=== PATIENT | male | born 1960 | race Caucasian/White ===

== ENCOUNTER 2017-01-29 17:19 | Emergency (ER) | payer BC, MEDICAID ==
[~2017-01-29] VITALS: Ht 162.6 cm; Wt 84.8 kg
[~2017-01-29 17:19] MED LIST: CEPH-570 PO; GABA300C PO; INSU100V11; LISI-603 PO; LORA10TA7 PO; METF1000 PO; NPH,100V8 SQ; PITA2TAB PO; SITA100T PO
[2017-01-29 17:24] VITALS: BP 171/111
== END 2017-01-29 18:12 | disposition home or self-care (01) ==
LOC: ER 17:24
DX: H60.91 Unspecified otitis externa, right ear (principal); E11.9 Type 2 diabetes mellitus without complications; I10 Essential (primary) hypertension; Z79.4 Long term (current) use of insulin
CPT/HCPCS: 99283; A4606; Z7610

== ENCOUNTER 2017-09-17 15:23 | Emergency (ER) | payer BC, MEDICAID ==
[~2017-09-17] VITALS: Ht 165.1 cm; Wt 63.5 kg
[~2017-09-17 15:23] MED LIST changes: -NPH,100V8 SQ; +NPH.100V2 SQ
[2017-09-17 15:28] VITALS: BP 127/74
== END 2017-09-17 16:32 | disposition home or self-care (01) ==
LOC: ER 15:25
DX: M79.89 Other specified soft tissue disorders (principal); E11.9 Type 2 diabetes mellitus without complications; I10 Essential (primary) hypertension; Z79.4 Long term (current) use of insulin; Z86.73 Personal history of transient ischemic attack (TIA), and cerebral infarction without residual deficits
CPT/HCPCS: 99282; A4606; Z7610

== ENCOUNTER 2017-09-29 09:10 | Inpatient (IN) | payer MEDICAID ==
[~2017-09-29] VITALS: Ht 167.6 cm; Wt 77.1 kg
--- NOTE | 2017-09-29 09:20 | NUR ---
BIBRA FROM HOME DUE CHEST PAIN, 5, NON RADIATING SINCE LAST NIGHT,. PATIENT WITH HX OF CVA WITH LEFT SIDE DEFICIT. PATIENT IS AWAKE AND ALERT, APPEARS IN NO DISTRESS,RESPIRATION EVEN AND UNLABORED. AFEBRILE; IV ON LEFT HAND NOTED. NITRO/ ASA GIVEN IN FIELD. GOWNED PT AND PLACED ON TELE MONITOR.
--- NOTE | 2017-09-29 09:23 | NUR ---
EKG IN PROGRESS
[2017-09-29] MEDS ORDERED: ENALAPRILAT DIHYD. (2.5MG/ML) 1.25 MG/ML VIAL IV ONE ×2 (09:30→09:35)
[2017-09-29] MEDS ORDERED: NITROGLYCERIN PACKET 1 GM PACKET TD ONE (09:30)
[2017-09-29] MEDS ORDERED: NITROGLYCERIN PACKET 1 GM PACKET ONE (09:35)
[2017-09-29 09:37] LABS: BASOPHILS % (AUTO) 0.6 % (0.0-2.0); EOSINOPHILS # (AUTO) 0.2 /CMM (0.0-0.7); EOSINOPHILS % (AUTO) 3.7 % (0.0-6.0); HEMATOCRIT 36 % (39-51); HEMOGLOBIN 12.2 g/dL (13.5-17.5); LYMPHOCYTES # (AUTO) 0.9 /CMM (0.8-4.8); MEAN CORPUSCULAR HEMOGLOBIN 30 PG (26.0-33.0); MEAN CORPUSCULAR HGB CONC 34 g/dl (31.0-36.0); MEAN CORPUSCULAR VOLUME 89 fL (80-96); MONOCYTES # (AUTO) 0.3 /CMM (0.1-1.30); MONOCYTES % (AUTO) 4.1 % (2.0-12.0); NEUTROPHILS # (AUTO) 5.1 /CMM (1.8-8.9); NEUTROPHILS % (AUTO) 77.6 % (43.0-81.0); PLATELET COUNT (AUTO) 147 /CMM (150-450); RDW COEFFICIENT OF VARIATION 13.3 (11.5-15.0); RED BLOOD CELL COUNT(AUTO) 4.03 MIL/uL (4.5-6.0); WHITE BLOOD COUNT (AUTO) 6.5 K/uL (4.3-11.0)
[2017-09-29] MEDS ORDERED: TRIA15OI2 TP (09:50)
[2017-09-29] MEDS ORDERED: METO25TA20 PO (09:50)
[2017-09-29] MEDS ORDERED: HYDR-4077 PO (09:50)
[2017-09-29] MEDS ORDERED: DOXA2TAB2 PO (09:50)
[2017-09-29] MEDS ORDERED: CLOP75TA15 PO (09:50)
[2017-09-29] MEDS ORDERED: CALC500T52 PO (09:50)
[2017-09-29] MEDS ORDERED: LEVE500T9 PO (09:50)
[2017-09-29] MEDS ORDERED: RANI300T4 PO (09:50)
[2017-09-29] MEDS ORDERED: GABA-532 PO (09:50)
[2017-09-29] MEDS ORDERED: CARV12.52 PO (09:50)
[2017-09-29] MEDS ORDERED: DILT240C2 PO (09:50)
[2017-09-29] MEDS ORDERED: ATOR40TA PO (09:50)
[2017-09-29] MEDS ORDERED: LORA0.5T PO (09:50)
[2017-09-29] MEDS ORDERED: ERGO500040 PO (09:50)
[2017-09-29] MEDS ORDERED: LINA5TAB PO (09:50)
[2017-09-29] MEDS ORDERED: ASPI-1152 PO (09:50)
[2017-09-29] MEDS ORDERED: ALBU18HF2 IH (09:50)
[2017-09-29] MEDS ORDERED: CYAN10006 IM (09:50)
[2017-09-29] MEDS ORDERED: BACL10TA PO (09:50)
[2017-09-29] MEDS ORDERED: DOCU-141 PO (09:50)
[2017-09-29] MEDS ORDERED: LOSA100T15 PO (09:50)
[2017-09-29 09:53] LABS: ALANINE AMINOTRANSFERASE 27 U/L (12-78); ALBUMIN 3.2 g/dL (3.4-5.0); ALKALINE PHOSPHATASE 63 U/L (46-116); ASPARTATE AMINOTRANSFERASE 9 U/L (15-37); BILIRUBIN,DIRECT 0.1 mg/dL (0.0-0.2); BILIRUBIN,TOTAL 0.3 mg/dL (0.2-1.0); CARBON DIOXIDE 21 mmol/L (21-32); CHLORIDE 108 mmol/L (98-107); CREATININE 3.6 mg/dL (0.6-1.3); GLUCOSE 284 mg/dL (74-106); POTASSIUM 4.2 mmol/L (3.5-5.1); SODIUM SERUM 141 mmol/L (136-145); TOTAL PROTEIN, SERUM 6.7 g/dL (6.4-8.2); UREA NITROGEN, BLOOD 49 mg/dL (7-18)
[2017-09-29] MEDS ORDERED: AZEL137S7 BNOSTRILS (09:53)
[2017-09-29 09:55] LABS: TROPONIN I < 0.017 ng/mL (0.00-0.056)
[2017-09-29 10:00] LABS: INR 0.97 (0.87-1.13)
[2017-09-29] MEDS ORDERED: CLON0.1T PO (10:00)
[2017-09-29] MEDS ORDERED: INSU100I26 SQ (10:00)
[2017-09-29] MEDS ORDERED: INSU100V8 SQ (10:00)
--- NOTE | 2017-09-29 10:25 | NUR ---
TURNED IN MOVE SHEET
--- NOTE | 2017-09-29 10:28 | NUR ---
REPORT GIVEN TO HEATHER NAVA FOR PRABHJOT
--- NOTE | 2017-09-29 11:20 | NUR ---
Annie flores in [facility] - 09/29/17 at 1120 by GEORGE MOVE SHEET TURNED IN [id number]
--- NOTE | 2017-09-29 11:26 | NUR ---
PT TRANSPORTED TO [facility]
--- NOTE | 2017-09-29 11:35 | NUR ---
RECEIVED PATIENT FROM ER. NO SOB OR DISTRESS NOTED AT THIS TIME. PATIENT DENIES PAIN. TELE MONITOR APPLIED TO PATIENT. CURRENTLY SB 57. DR LEONARD ON FLOOR ASSESSING PATIENT. PT REPORTS HE DOES NOT WANT THE FLU VACCINE. PATIENT ORIENTED TO ROOM AND CALL LIGHT, BELONGINGS ACCOUNTED FOR. BED IN A LOW POSITION, CALL LIGHT WITHIN PATIENT REACH, FAMILY AT BEDSIDE. WILL MONITOR.
[2017-09-29] MEDS ORDERED: HYDROCODONE/APAP 5/325MG 1 EACH TABLET PO PRN (12:00)
[2017-09-29] MEDS ORDERED: Medication Not On Formulary EA (Losartan Potassium 100 MG) PO SCH (12:00)
[2017-09-29] MEDS ORDERED: Z GUARD REMEDY 2 OZ OINT TP PRN (12:00)
[2017-09-29] MEDS: TRIAMCINOLONE OINT 0.1% 15 GM TUBE TP SCH ×2 (12:00→17:00)
[2017-09-29] MEDS ORDERED: LORAZEPAM 0.5 MG TABLET PO PRN (12:00)
[2017-09-29] MEDS ORDERED: ACETAMINOPHEN 325 MG TABLET PO PRN (12:00)
[2017-09-29] MEDS ORDERED: DILTIAZEM HCL CD 240 MG PO SCH (12:00)
[2017-09-29] MEDS ORDERED: ZOLPIDEM TARTRATE 5 MG TABLET PO PRN (12:00)
[2017-09-29] MEDS: CARVEDILOL 12.5 MG TABLET PO SCH ×2 (12:00→17:21)
[2017-09-29] MEDS ORDERED: CARVEDILOL 12.5 MG TABLET PO SCH (12:00)
[2017-09-29] MEDS: CALCIUM CARBONATE (1250) 500 MG TABLET PO SCH (12:00)
[2017-09-29] MEDS: ASPIRIN EC 81 MG TABLET.DR PO SCH (12:00)
[2017-09-29] MEDS: GABAPENTIN 100 MG CAPSULE PO SCH ×2 (12:00→17:22)
[2017-09-29 12:30] VITALS: BP 169/90
[2017-09-29] MEDS ORDERED: DEXTROSE 50%-WATER 50 ML DISP.SYRIN IV PRN (13:00)
[2017-09-29] MEDS ORDERED: INSULIN GLULISINE SQ SCH (13:00)
[2017-09-29] MEDS ORDERED: hydrALAZINE HCL 50 MG TABLET PO SCH (13:00)
[2017-09-29] MEDS: PANTOPRAZOLE 40 MG VIAL IV SCH (13:17)
[2017-09-29] MEDS: DOXAZOSIN MESYLATE (1 MG) 1 MG TABLET PO SCH (13:18)
[2017-09-29] MEDS: CLOPIDOGREL BISULFATE 75 MG TABLET PO SCH (13:18)
[2017-09-29] MEDS: ATORVASTATIN 40 MG TABLET PO SCH (13:18)
[2017-09-29] MEDS: BACLOFEN (10 MG) 10 MG TABLET PO SCH ×2 (13:18→17:22)
[2017-09-29] MEDS: LINAGLIPTIN 5 MG TABLET PO SCH (13:18)
--- NOTE | 2017-09-29 13:18 | NUR ---
PT REFUSED SOME OF THE DUE MEDS AT THIS TIME HE STATES HE HAS ALREADY TAKEN THEM TODAY. UNABLE TO RETURN THEY ARE ALREADY OPEN.
[2017-09-29] MEDS: DOCUSATE SODIUM 100 MG CAPSULE PO SCH ×2 (13:19→17:22)
[2017-09-29] MEDS: AMLODIPINE BESYLATE 5 MG TABLET PO SCH (13:19)
[2017-09-29] MEDS: ONDANSETRON HCL/PF 4 MG/2 ML VIAL IVP PRN (14:21)
[2017-09-29 16:00] VITALS: BP 152/90
--- NOTE | 2017-09-29 17:10 | NUR ---
PT REFUSED INSULIN. STATES HE IS NOT FEELING WELL AND DOES NOT WANT TO EAT.
[2017-09-29] MEDS: BLOOD SUGAR DIAGNOSTIC 1 EACH STRIP IN SCH ×2 (17:22→22:06)
[2017-09-29] MEDS: INSULIN REGULAR, HUMAN 100 UNIT/ML 3 ML VIAL SQ PRN ×2 (17:22→22:48)
[2017-09-29] MEDS: FAMOTIDINE (20 MG) 20 MG TABLET PO SCH (17:22)
[2017-09-29] MEDS ORDERED: hydrALAZINE HCL 50 MG TABLET PO PRN (18:00)
[2017-09-29 18:04] LABS: APPEARANCE,URINE CLEAR (CLEAR); BILIRUBIN,URINE NEGATIVE (NEGATIVE); BLOOD, URINE TRACE-INTA Ery/uL (NEGATIVE); COLOR,URINE YELLOW (YELLOW); KETONES,URINE NEGATIVE (NEGATIVE); LEUKOCYTE ESTERASE ,URINE NEGATIVE (NEGATIVE); NITRITE, URINE NEGATIVE (NEGATIVE); PROTEIN,URINE 3+ mg/dl (NEGATIVE); UGLUCOSE 2+ mg/dL (NEGATIVE); UROBILINOGEN,URINE 0.2 EU/dL (0.2)
--- NOTE | 2017-09-29 18:43 | NUR ---
NO SIGNIFICANT CHANGES IN PATIENT CONDITION THROUGHOUT THE SHIFT. NO SOB OR DISTRESS NOTED. PATIENT DENIES PAIN AT THIS TIME. HEART RATE SR 77. BED IN A LOW POSITION, CALL LIGHT WITHIN PATIENT REACH, FAMILY IS AT THE BEDSIDE. WILL ENDORSE FOR PRABHJOT.
[2017-09-29 18:57] LABS: BACTERIA,URINE Few /HPF (None Seen); SQUAMOUS EPITHELIAL CELL,UR Few /HPF (None Seen); WBC,URINE 0-2 /HPF (0-3)
--- NOTE | 2017-09-29 19:05 | NUR ---
TELE/OPTICAL STORE MANAGER; RECEIVED PT'S REPORTS FROM THE DAY SHIFT RN. AT THIS TIME PT IN BED AWAKE, ALERT AND COHERENTLY RESPONSIVE. PT'S VISITED. PT. DENIES CHEST PAIN. ON TELEMETRY MONITORED. BED ON LOWER POSITION AND LOCKED FOR SAFETY. SIDE RAIL X4 ARE UP FOR SAFETY. PT INSTRUCTED NOT TO GET OUT OF BED AND GO TO THE BATHROOM ALONE MUST CALL FOR HELP. CALL LIGHT WITHIN REACH.
[2017-09-29 20:00] VITALS: BP 173/84
--- NOTE | 2017-09-29 20:00 | NUR ---
TELE/PRINTED CIRCUIT BOARD DESIGNER; PER PT'S SHE SAID PT WITH SLIGHT TINGLING OF LT ARM AND LT LEG. WILL MONITOR.
[2017-09-29] MEDS: CLONIDINE HCL 0.1 MG TABLET PO PRN (20:44)
[2017-09-29] MEDS: LEVETIRACETAM (250 MG) 250 MG TABLET PO SCH (20:45)
[2017-09-29] MEDS ORDERED: INSULIN GLARGINE, 100 UNIT/ML CARTRIDGE SQ SCH (22:00)
--- NOTE | 2017-09-29 22:00 | NUR ---
TELE/CLASSROOM INSTRUCTIONAL AIDE; AT THIS TIME MATHEMATICS TECHNICIAN EMPERATRIZ AT THE BEDSIDE DOING ECHOCARDIOGRAM. PT BS TAKEN AND THE RESULT 158 AND PT REFUSED COVERAGE AND ALSO HE REFUSED LANTUS INSULIN AND CHARGE NURSE MADE AWARE. WILL CONTINUE TO MONITOR. PER MATHEMATICS TECHNICIAN EF 60 %.
[2017-09-30] VITALS: BP 130/78
[2017-09-30 04:00] VITALS: BP_SYST 130; BP_SYST 147; BP_DIAS 78; BP_DIAS 93
--- NOTE | 2017-09-30 06:30 | NUR ---
TELE/CW OPERATOR; BS 152 COVERED WITH REGULAR INSULIN 2 UNITS Q. PT ENC. TO EAT FOOD.
[2017-09-30] MEDS: BLOOD SUGAR DIAGNOSTIC 1 EACH STRIP IN SCH ×3 (06:32→17:12)
[2017-09-30] MEDS: INSULIN REGULAR, HUMAN 100 UNIT/ML 3 ML VIAL SQ PRN ×2 (06:43→11:53)
--- NOTE | 2017-09-30 07:00 | NUR ---
TELE/TUMBLER MACHINE OPERATOR HELPER; PT SLEPT FAIRLY OBSERVED .PT WAS SAYING THAT HIS LT ARM AND LT LEG STILL WITH TINGLING. ALSO AT THIS TIME PT SAID HIS RT ARM SHAKING WHEN HE WAS HOLDING HIS CELL PHONE. I TOLD HIM I WILL TELL THE DAY SHIFT RN TO INFORM MD. WILL CONTINUE TO MONITOR. PT ON SR 68 WITH OCC. PVC. WILL ENDORSE TO THE DAY SHIFT NURSE FOR PRABHJOT.
[2017-09-30 07:38] LABS: BASOPHILS % (AUTO) 0.7 % (0.0-2.0); EOSINOPHILS # (AUTO) 0.3 /CMM (0.0-0.7); EOSINOPHILS % (AUTO) 4.7 % (0.0-6.0); HEMATOCRIT 36 % (39-51); HEMOGLOBIN 12.4 g/dL (13.5-17.5); LYMPHOCYTES # (AUTO) 1.1 /CMM (0.8-4.8); LYMPHOCYTES % (AUTO) 15.7 % (20.0-44.0); MEAN CORPUSCULAR HEMOGLOBIN 31 PG (26.0-33.0); MEAN CORPUSCULAR HGB CONC 34 g/dl (31.0-36.0); MEAN CORPUSCULAR VOLUME 90 fL (80-96); MONOCYTES # (AUTO) 0.3 /CMM (0.1-1.30); MONOCYTES % (AUTO) 4.6 % (2.0-12.0); NEUTROPHILS # (AUTO) 5.2 /CMM (1.8-8.9); NEUTROPHILS % (AUTO) 74.3 % (43.0-81.0); PLATELET COUNT (AUTO) 152 /CMM (150-450); RDW COEFFICIENT OF VARIATION 13.3 (11.5-15.0); RED BLOOD CELL COUNT(AUTO) 4.05 MIL/uL (4.5-6.0)
[2017-09-30 07:51] LABS: ALBUMIN 3.2 g/dL (3.4-5.0); BILIRUBIN,TOTAL 0.4 mg/dL (0.2-1.0); CALCIUM, SERUM 9.4 mg/dL (8.5-10.1); CREATININE 3.4 mg/dL (0.6-1.3); MAGNESIUM 2.2 mg/dL (1.8-2.4); PHOSPHORUS 3.9 mg/dL (2.5-4.9); POTASSIUM 4.6 mmol/L (3.5-5.1); TOTAL PROTEIN, SERUM 6.6 g/dL (6.4-8.2)
[2017-09-30 08:00] VITALS: BP 160/105
--- NOTE | 2017-09-30 08:02 | NUR ---
BENEFITS CONSULTING ANALYST OPENING NOTE PATIENT IS ALERT AND ORIENTED x4. NO PAIN AT THIS TIME. PATIENT DOES STATE TINGLING IN LEFT ARM. NO SOB OR DISTRESS NOTED. CALL LIGHT WITHIN REACH. SAFETY MEASURES IMPLEMENTED. ABLE TO COMMUNICATE NEEDS. IV INTACT WITH IV FLUIDS RUNNING AT THIS TIME TOLERATING WELL. ON ROOM AIR AT 96%. BLOOD SUGAR TO BE MONITORED THROUGHOUT SHIFT. WILL CONTINUE TO MONITOR THROUGHOUT SHIFT
[2017-09-30] MEDS: ASPIRIN EC 81 MG TABLET.DR PO SCH (08:29)
[2017-09-30] MEDS: AMLODIPINE BESYLATE 5 MG TABLET PO SCH (08:30)
[2017-09-30] MEDS: ATORVASTATIN 40 MG TABLET PO SCH (08:30)
[2017-09-30] MEDS: LINAGLIPTIN 5 MG TABLET PO SCH (08:30)
[2017-09-30] MEDS: DOXAZOSIN MESYLATE (1 MG) 1 MG TABLET PO SCH (08:30)
[2017-09-30] MEDS: CALCIUM CARBONATE (1250) 500 MG TABLET PO SCH (08:30)
[2017-09-30] MEDS: DOCUSATE SODIUM 100 MG CAPSULE PO SCH ×2 (08:30→17:00)
[2017-09-30] MEDS: CLOPIDOGREL BISULFATE 75 MG TABLET PO SCH (08:30)
[2017-09-30] MEDS: LEVETIRACETAM (250 MG) 250 MG TABLET PO SCH (08:30)
[2017-09-30] MEDS: PANTOPRAZOLE 40 MG VIAL IV SCH (08:31)
[2017-09-30] MEDS: TRIAMCINOLONE OINT 0.1% 15 GM TUBE TP SCH ×2 (08:31→17:00)
[2017-09-30] MEDS: CARVEDILOL 12.5 MG TABLET PO SCH ×2 (08:31→17:10)
[2017-09-30] MEDS: BACLOFEN (10 MG) 10 MG TABLET PO SCH ×2 (08:31→17:00)
[2017-09-30] MEDS: ONDANSETRON HCL/PF 4 MG/2 ML VIAL IVP PRN ×2 (09:09→15:39)
[2017-09-30 16:00] VITALS: BP 198/105
[2017-09-30 17:10] VITALS: BP 176/100
[2017-09-30] MEDS: CLONIDINE HCL 0.1 MG TABLET PO PRN (17:10)
[2017-09-30] MEDS: GABAPENTIN 100 MG CAPSULE PO SCH (17:12)
[2017-09-30] MEDS: FAMOTIDINE (20 MG) 20 MG TABLET PO SCH (17:12)
--- NOTE | 2017-09-30 18:16 | NUR ---
TRAFFIC ENGINEERING DIRECTOR NOTE PATIENT IS ALERT AND ORIENTED x4. NO PAIN AT THIS TIME. NO SOB OR DISTRESS NOTED. CALL LIGHT WITHIN REACH AT ALL TIMES. SAFETY MEASURES IMPLEMENTED. ABLE TO COMMUNICATE NEEDS. ALL DUE MEDICATIONS GIVEN ORDERED. ALL NURSING CARE NEEDS ATTENDED TO NEEDED. IV REMOVED, SKIN INTACT. ALL BELONGINGS ACCOUNTED FOR AND WITH PATIENT AT DISCHARGE. ALL DISCHARGE INSTRUCTIONS GIVEN TO PATIENT AND AT BEDSIDE,ALL DISCHARGE INSTRUCTIONS TAUGHT BACK BY PATIENT AND . PRESCRIPTION GIVEN TO PATIENT. LEFT VIA PRIVATE CAR WITH TO HOME
[2017-10-05] MEDS ORDERED: ERGOCALCIFEROL (VITAMIN D 2) 50,000 UNIT CAPSULE PO SCH (12:00)
== END 2017-09-30 18:14 | disposition home health service (06) | DRG 198 ==
LOC: ER 09:12 → TELE 11:29
PROVIDERS: ADMIT Internal Medicine; ATTEND Internal Medicine
DX: I25.110 Atherosclerotic heart disease of native coronary artery with unstable angina pectoris (principal); G93.40 Encephalopathy, unspecified; E11.22 Type 2 diabetes mellitus with diabetic chronic kidney disease; E11.40 Type 2 diabetes mellitus with diabetic neuropathy, unspecified; I69.354 Hemiplegia and hemiparesis following cerebral infarction affecting left non-dominant side; I12.9 Hypertensive chronic kidney disease with stage 1 through stage 4 chronic kidney disease, or unspecified chronic kidney disease; E78.5 Hyperlipidemia, unspecified; N18.9 Chronic kidney disease, unspecified; D63.8 Anemia in other chronic diseases classified elsewhere; J44.9 Chronic obstructive pulmonary disease, unspecified; K21.9 Gastro-esophageal reflux disease without esophagitis; Z87.891 Personal history of nicotine dependence; Z95.1 Presence of aortocoronary bypass graft; Z79.82 Long term (current) use of aspirin; Z79.4 Long term (current) use of insulin
CPT/HCPCS: 36415; 70450-TC; 71045-TC; 80048-TC; 80053-TC; 80061-TC; 80076-TC; 81000-TC; 82962-TC; 83605-TC; 83735-TC; 84100-TC; 84484-TC; 85025-TC; 85730-TC; 87081-TC; 87086-TC; 93307-TC; 93880-TC; A4606; C9113; J1815; J2405; J3490; Z7610

== ENCOUNTER 2018-12-17 19:28 | Inpatient (IN) | payer MEDICARE, OTHER ==
[~2018-12-17] VITALS: Ht 160 cm; Wt 73.5 kg
[~2018-12-17 19:28] MED LIST changes: +ALBU18HF2 IH; +ASPI-1152 PO; +ATOR40TA PO; +AZEL137S7 BNOSTRILS; +BACL10TA PO; +CALC500T52 PO; +CARV12.52 PO; -CEPH-570 PO; +CLON0.1T PO; +CLOP75TA15 PO; +CYAN10006 IM; +DILT240C2 PO; +DOCU-141 PO; +DOXA2TAB2 PO; +ERGO500040 PO; +GABA-532 PO; -GABA300C PO; +HYDR-4077 PO; +INSU100I26 SQ; -INSU100V11; +INSU100V8 SQ; +LEVE500T9 PO; +LINA5TAB PO; -LISI-603 PO; +LORA0.5T PO; -LORA10TA7 PO; +LOSA100T31 PO; -METF1000 PO; +METO25TA20 PO; -NPH.100V2 SQ; -PITA2TAB PO; +RANI300T4 PO; -SITA100T PO; +TRIA15OI2 TP
--- NOTE | 2018-12-17 19:53 | NUR ---
PRESENTD TO THE ER W/ C/O ELENITA. +N/V AT HOME AND HIGH BP. VS OBTAINED . PLACED ON A MONITOR . WILL CONT TO MONITOR ,
[2018-12-17 20:02] LABS: BASOPHILS # (AUTO) 0.1 /CMM (0.0-0.2); BASOPHILS % (AUTO) 0.6 % (0.0-2.0); EOSINOPHILS % (AUTO) 4.3 % (0.0-6.0); HEMATOCRIT 36 % (39-51); HEMOGLOBIN 11.9 g/dL (13.5-17.5); LYMPHOCYTES # (AUTO) 1.3 /CMM (0.8-4.8); LYMPHOCYTES % (AUTO) 14.4 % (20.0-44.0); MEAN CORPUSCULAR HGB CONC 33 g/dl (31.0-36.0); MEAN CORPUSCULAR VOLUME 98 fL (80-96); MONOCYTES # (AUTO) 0.7 /CMM (0.1-1.30); MONOCYTES % (AUTO) 8.1 % (2.0-12.0); NEUTROPHILS # (AUTO) 6.4 /CMM (1.8-8.9); NEUTROPHILS % (AUTO) 72.6 % (43.0-81.0); PLATELET COUNT (AUTO) 126 /CMM (150-450); RED BLOOD CELL COUNT(AUTO) 3.67 MIL/uL (4.5-6.0); WHITE BLOOD COUNT (AUTO) 8.8 K/uL (4.3-11.0)
--- NOTE | 2018-12-17 20:02 | NUR ---
20g iv started on rac. blood drawn and sent to the lab. ECG done. pt was encoutraged to give some urine sample.
[2018-12-17 20:19] LABS: ALANINE AMINOTRANSFERASE 16 U/L (12-78); ALBUMIN 3.2 g/dL (3.4-5.0); ALKALINE PHOSPHATASE 56 U/L (46-116); ASPARTATE AMINOTRANSFERASE 12 U/L (15-37); BILIRUBIN,DIRECT 0.1 mg/dL (0.0-0.2); BILIRUBIN,TOTAL 0.4 mg/dL (0.2-1.0); CALCIUM, SERUM 8.8 mg/dL (8.5-10.1); CARBON DIOXIDE 18 mmol/L (21-32); CHLORIDE 103 mmol/L (98-107); GLUCOSE 104 mg/dL (74-106); LIPASE 225 U/L (73-393); SODIUM SERUM 141 mmol/L (136-145); TOTAL PROTEIN, SERUM 7.2 g/dL (6.4-8.2)
[2018-12-17 20:24] LABS: POTASSIUM 6.2 mmol/L (3.5-5.1)
[2018-12-17 20:25] LABS: UREA NITROGEN, BLOOD 116 mg/dL (7-18)
[2018-12-17] MEDS ORDERED: SODIUM POLYSTYRENE SULF. PWD 15 GM UDC PO ONE (20:30)
[2018-12-17] MEDS ORDERED: hydrALAZINE HCL IV 20 MG VIAL IV ONE (20:30)
[2018-12-17] MEDS ORDERED: hydrALAZINE HCL IV 20 MG VIAL ONE (20:32)
[2018-12-17] MEDS ORDERED: SODIUM POLYSTYRENE SULFONATE 15 G/60 ML BOTTLE ONE ×2 (20:32→20:39)
--- NOTE | 2018-12-17 22:06 | NUR ---
111-1 TELE DX HTN, HYPERKALEMIA, RENAL FAILURE ACCEPTING DR WHITE
--- NOTE | 2018-12-17 22:27 | NUR ---
REPORT GIVEN TO ANTHONY [facility]
--- NOTE | 2018-12-17 22:55 | NUR ---
PT WAS TRANSFERRED TO [place] [id number] UNDER ACLS PROTOCOL IN STABLE CONDITION.
--- NOTE | 2018-12-17 23:05 | NUR ---
MALT SPECIFICATIONS CONTROL ASSISTANT NOTES RECEIVED PT FROM ER NURSE. AMBULATORY WITH CANE, ON ROOM AIR SATURATING WELL. ON TELE MONITOR SR. IV ACCESS PATENT AND INTACT. HD CATH RIGHT CHEST WALL. HEAD OF BED ELEVATED. SIDE RAILS UP. CALL LIGHT WITHIN REACH. BED ALARM ON. WILL CONTINUE TO MONITOR PT CLOSELY.
--- NOTE | 2018-12-17 23:32 | NUR ---
CONCRETE BLOCK LAYER NOTES PAGED EPIC FOR BLOOD PRESSURE 190/110. NO NEW ORDERS. AWAITING ADMISSION ORDERS.
[2018-12-17] MEDS ORDERED: SERT25TA5 PO (23:37)
[2018-12-17] MEDS ORDERED: QUET25TA PO (23:37)
--- NOTE | 2018-12-17 23:43 | NUR ---
OILING MACHINE OPERATOR NOTES MD AT BEDSIDE. AWAITING MD ORDER
[2018-12-18] VITALS (9 sets, daily range): BP systolic 122–191; BP diastolic 73–110
[2018-12-18] MEDS ORDERED: LORAZEPAM 0.5 MG TABLET PO PRN
[2018-12-18] MEDS ORDERED: ALBUTEROL SULFATE 8 GM HFA.AER.AD IH PRN
[2018-12-18] MEDS ORDERED: DEXTROSE 50%-WATER 50 ML DISP.SYRIN IV PRN
[2018-12-18] MEDS ORDERED: MAGNESIUM HYDROXIDE 30 ML UDC PO PRN
[2018-12-18] MEDS ORDERED: ZOLPIDEM TARTRATE 5 MG TABLET PO PRN
[2018-12-18] MEDS ORDERED: MAG HYDROX/AL HYDROX/SIMETH 30 ML UDC PO PRN
[2018-12-18] MEDS ORDERED: CLONIDINE HCL 0.1 MG TABLET PO PRN
[2018-12-18] MEDS: CARVEDILOL 12.5 MG TABLET PO SCH ×3 (00:45→17:00)
[2018-12-18] MEDS: hydrALAZINE HCL 50 MG TABLET PO SCH ×4 (00:46→17:00)
[2018-12-18] MEDS: LEVETIRACETAM (250 MG) 250 MG TABLET PO SCH ×3 (00:48→21:15)
--- NOTE | 2018-12-18 01:08 | NUR ---
TRAILER SECTIONS ASSEMBLER NOTES PER PT HE WANTS TO HAVE ACCUCHECK AND INSULIN IN AM BEFORE MEALS. EXPLAINED RISK AND BENEFITS. PT STILL REFUSED. CN INFORMED.
[2018-12-18] MEDS: DILTIAZEM HCL CD 240 MG PO SCH ×2 (01:23→08:26)
[2018-12-18] MEDS: LOSARTAN POTASSIUM 50 MG TABLET PO SCH ×2 (01:23→09:00)
[2018-12-18] MEDS: BACLOFEN (10 MG) 10 MG TABLET PO SCH ×3 (01:26→17:12)
[2018-12-18] MEDS: GABAPENTIN 100 MG CAPSULE PO SCH ×2 (01:26→17:12)
[2018-12-18 06:29] LABS: BASOPHILS # (AUTO) 0.1 /CMM (0.0-0.2); BASOPHILS % (AUTO) 0.9 % (0.0-2.0); EOSINOPHILS % (AUTO) 4.3 % (0.0-6.0); HEMATOCRIT 32 % (39-51); LYMPHOCYTES % (AUTO) 13.7 % (20.0-44.0); MEAN CORPUSCULAR HGB CONC 34 g/dl (31.0-36.0); MEAN CORPUSCULAR VOLUME 98 fL (80-96); MONOCYTES # (AUTO) 0.5 /CMM (0.1-1.30); MONOCYTES % (AUTO) 6.9 % (2.0-12.0); NEUTROPHILS # (AUTO) 5.7 /CMM (1.8-8.9); NEUTROPHILS % (AUTO) 74.2 % (43.0-81.0); PLATELET COUNT (AUTO) 119 /CMM (150-450); WHITE BLOOD COUNT (AUTO) 7.7 K/uL (4.3-11.0)
[2018-12-18 06:59] LABS: THYROID STIMULATING HORMONE 1.978 uIU/mL (0.358-3.74)
[2018-12-18 07:02] LABS: CALCIUM, SERUM 8.4 mg/dL (8.5-10.1); MAGNESIUM 3.2 mg/dL (1.8-2.4); POTASSIUM 5.8 mmol/L (3.5-5.1)
--- NOTE | 2018-12-18 07:11 | NUR ---
APPLIQUE SEWER NOTES NO ACUTE CHANGES NOTED DURING THE SHIFT. NO RESPIRATORY DISTRESS NOTED. BED ALARM ON. WILL ENDORSE TO THE AM NURSE FOR CONTINUITY OF CARE.
[2018-12-18] MEDS: BLOOD SUGAR DIAGNOSTIC 1 EACH STRIP IN SCH ×4 (07:31→21:16)
[2018-12-18] MEDS ORDERED: ALBUTEROL FS 2.5 MG/0.5 ML VIAL.NEB NEB PRN (07:35)
[2018-12-18 07:40] LABS: CREATININE 11.8 mg/dL (0.6-1.3); PHOSPHORUS 10.9 mg/dL (2.5-4.9)
--- NOTE | 2018-12-18 07:42 | NUR ---
RN NOTE: PATIENT RECEIVED ALERT AWAKE ORIENTED X 4. ON ROOM AIR, NO BREATHING DISTRESS NOTED. DENIES CHEST PAIN & DISCOMFORT. DENIES ABDOMEN DISCOMFORT. SAFETY MEASURES OBSERVED. ENCOURAGE TO USE CALL LIGHT FOR ASSISTANCE. PLAN FOR HD TODAY. CONTINUE WITH PLAN OF CARE.
[2018-12-18] MEDS: SERTRALINE HCL 25 MG TABLET PO SCH ×2 (08:24→17:13)
[2018-12-18] MEDS: ATORVASTATIN 40 MG TABLET PO SCH (08:24)
[2018-12-18] MEDS: CALCIUM CARBONATE (1250) 500 MG TABLET PO SCH (08:24)
[2018-12-18] MEDS: DOCUSATE SODIUM 100 MG CAPSULE PO SCH ×2 (08:24→17:00)
[2018-12-18] MEDS: LINAGLIPTIN 5 MG TABLET PO SCH (08:25)
[2018-12-18] MEDS: CLOPIDOGREL BISULFATE 75 MG TABLET PO SCH (08:25)
[2018-12-18] MEDS: ASPIRIN EC 81 MG TABLET.DR PO SCH (08:25)
[2018-12-18] MEDS: TRIAMCINOLONE OINT 0.1% 15 GM TUBE TP SCH ×2 (09:00→17:00)
[2018-12-18] MEDS ORDERED: METOPROLOL TARTRATE 25 MG TABLET PO SCH (09:00)
[2018-12-18] MEDS: AZELASTINE NASAL SPRAY 30 ML BOTTLE NS SCH ×2 (09:19→17:12)
--- NOTE | 2018-12-18 12:31 | NUR ---
RN NOTE: PT & REFUSED, DOES NOT TAKE BP MED ON DIALYSIS DAY, TODAY PLAN FOR HD. WILL CONTINUE TO MONITOR.
[2018-12-18] MEDS: INSULIN REGULAR, HUMAN 100 UNIT/ML 3 ML VIAL SQ PRN ×2 (12:49→17:14)
[2018-12-18] MEDS: QUETIAPINE FUMARATE 25 MG TABLET PO SCH (17:12)
--- NOTE | 2018-12-18 18:30 | NUR ---
RN NOTE: PATIENT REMAINS ALERT AWAKE ORIENTED X 4. ON ROOM AIR, NO BREATHING DISTRESS NOTED. DENIES CHEST PAIN/DISCOMFORT. NO SIGNIFICANT CHANGES NOTED DURING SHIFT. ASSISTANT BUSINESS MANAGER AT BEDSIDE DOING DIALYSIS. SAFETY MEASURES OBSERVED. ENCOURAGE TO USE CALL LIGHT FOR ASSISTANCE. CONTINUE WITH PLAN OF CARE.
--- NOTE | 2018-12-18 19:17 | NUR ---
SUPERVISOR POWDERED METAL NOTES RECEIVED PT ON BED. A/O X 4. SPOUSE AT BEDSIDE. ON TELE MONITOR SR 86. ON ROOM AIR NO RESPIRATORY DISTRESS NOTED. ON GOING HD. HD ACCESS RCW. IV ACCESS RAC G20 PATENT AND INTACT. HEAD OF BED ELEVATED. SIDE RAILS UP. CALL LIGHT WITHIN REACH. BED ALARM ON. WILL CONTINUE TO MONITOR PT CLOSELY.
--- NOTE | 2018-12-18 21:00 | NUR ---
MARKETING ASSISTANT RETAIL DIVISION NOTES HD DONE. BP 147/90. WILL GIVEN SCHEDULED BP MEDS.
[2018-12-18] MEDS: DOXAZOSIN MESYLATE (1 MG) 1 MG TABLET PO SCH (21:16)
[2018-12-18] MEDS: INSULIN GLARGINE, 100 UNIT/ML CARTRIDGE SQ SCH ×2 (21:17)
--- NOTE | 2018-12-18 21:25 | NUR ---
OPEN SOURCE DEVELOPER NOTES LONG ACTING INSULIN NOT GIVEN. PT NOT EATING WELL. BS OF 85MG/DL
[2018-12-18] MEDS: HYDROCODONE/APAP 5/325MG 1 EACH TABLET PO PRN (22:41)
--- NOTE | 2018-12-18 23:08 | NUR ---
RN NOTE RECEIVED PATIENT IN THE BED, ALERT/ORIENTED X 3, AWAKE, NO PAIN OR DISCOMFORT, BED ALARM IS ON FOR SAFETY, ALL SAFETY MEASURES TAKEN
--- NOTE | 2018-12-18 23:08 | NUR ---
ANATOMY AND PHYSIOLOGY INSTRUCTOR NOTES REPORT GIVEN TO KAYLEE ROMERO.
[2018-12-19] VITALS (46 sets, daily range): BP systolic 79–201; BP diastolic 54–112
--- NOTE | 2018-12-19 05:50 | NUR ---
RN NOTE EPISODE OF VOMITING NOTED, PATIENT WAS NOT ABLE TO HOLD CUP OF WATER, RIGHT SIDE WEAKNESS NOTED (RIGHT LOWER EXTREMITY AND RIGHT UPPER EXTREMITY), NEURO CHECK PERFORMED, BP 217/110 NOTED, CODE STROKE ACTIVATED, NURSING SOLDER CREAM MAKER IS BY BEDSIDE, CODE STROKE PROTOCOL INITIATED, PATIENT WAS SENT TO CT SCAN WITHOUT WITH ACLS PROTOCOL, CT HEAD WITHOUT CONTRAST WAS DONE, RESULT WAS CALLED TO DR LINDSAY, PER MD CALL NEUROLOGIST, SPOKE TO DOCTOR ESTHER NIETO, PER NEUROLOGIST PATIENT IS NOT CANDIDATE FOR TPA DUE TO LOW PLATELETS, ORDER WAS GIVEN TO SENT PATIENT FOR CT SCAN WITH CONTRAST AND SEND PATIENT TO ICU AND PRIMARY PHYSICIAN WILL FOLLOW UP WITH RESULT OF CT WITH CONTRAST, FAMILY WILL BE NOTIFIED, REPORT WAS GIVEN TO ARIE ICU NURSE
[2018-12-19] MEDS ORDERED: IOHEXOL-350 100 ML VIAL IV ONE ×2 (06:00→06:58)
[2018-12-19 06:23] LABS: BASOPHILS # (AUTO) 0.1 /CMM (0.0-0.2); BASOPHILS % (AUTO) 3.1 % (0.0-2.0); EOSINOPHILS % (AUTO) 8.8 % (0.0-6.0); HEMATOCRIT 37 % (39-51); HEMOGLOBIN 12.4 g/dL (13.5-17.5); LYMPHOCYTES # (AUTO) 0.8 /CMM (0.8-4.8); LYMPHOCYTES % (AUTO) 19.7 % (20.0-44.0); MEAN CORPUSCULAR HGB CONC 34 g/dl (31.0-36.0); MEAN CORPUSCULAR VOLUME 97 fL (80-96); MONOCYTES # (AUTO) 0.5 /CMM (0.1-1.30); MONOCYTES % (AUTO) 11.9 % (2.0-12.0); NEUTROPHILS # (AUTO) 2.3 /CMM (1.8-8.9); NEUTROPHILS % (AUTO) 56.5 % (43.0-81.0); PLATELET COUNT (AUTO) 93 /CMM (150-450); RED BLOOD CELL COUNT(AUTO) 3.78 MIL/uL (4.5-6.0)
[2018-12-19 06:32] LABS: CALCIUM, SERUM 8.9 mg/dL (8.5-10.1); POTASSIUM 3.7 mmol/L (3.5-5.1)
[2018-12-19 06:35] LABS: CREATININE 8.2 mg/dL (0.6-1.3)
--- NOTE | 2018-12-19 06:40 | NUR ---
RN NOTES SPOKE TO DR KELLEY AFTER SPEAKING TO NEUROLOGIST DR REDDING. IN AGREEMENT TO TRANSFER PATIENT TO ICU AFTER STAT CTA WITH CONTRAST OF THE HEAD AND NECK.
[2018-12-19 06:44] LABS: EOSINOPHILS % (MANUAL) 7 % (0-4); LYMPHOCYTES % (MANUAL) 15 % (16-48); MONOCYTES % (MANUAL) 10 % (0-11.0); NEUTROPHILS % (MANUAL) 68 (42-76)
[2018-12-19] MEDS: ONDANSETRON HCL/PF 4 MG/2 ML VIAL IVP PRN (07:18)
--- NOTE | 2018-12-19 07:18 | NUR ---
SAND DRIER ADMITTING NOTES: Rec'd pt via bed accompanied by ASH RN/ ICU CN. Pt s/p Code Stroke. Pt is A/O x 1, denies any pain/discomfort at this time. 100% on NC at 2lpm. SR on telemonitor. Has 2 IV line access, R AC G20 & L AC G20, both SL, flushing well, no s/sx of infection/infiltration noted. R CW HD Cath w/ C/D/I dressing, per report pt is scheduled for HD today. Weakness noted more on L > R. Pt oriented to room. Safety precaution in place w/ bed in lowest & locked pos. Call light placed w/in reach. Will cont to monitor & attend pt needs.
--- NOTE | 2018-12-19 07:40 | NUR ---
RN NOTE SPOKE TO SON DEBBIE, NOTIFIED SON REGARDING CHANGE OF CONDITION AND TRANSFER TO ICU, PER SON DEBBIE NOTIFY HIM SOON RESULTS OF CT SCAN READY, NOTIFIED NURSE ARIE TO CALL SON SOON RESULTS READY
--- NOTE | 2018-12-19 08:00 | NUR ---
MANAGER EMPLOYEE RELATIONS. AROUND 0550 ASH CHARGE CALLED FOR ASSESS THE PT. PER PRIMARY RN PT HAD HISTORY LT SIDE OLD STROKE. TODAY PRIMARY RN NOTED RT SIDE WEAKNESS , NEURO CHECK DONE RT DIDE UPPER AND LOWER EXTREMITY DRIFT NOTED. ACTIVATED CODE STROKE, CODE STROKE PROTOCOL INITIATED. PT TRANSFER TO ICU ROOM 254.
[2018-12-19] MEDS: BLOOD SUGAR DIAGNOSTIC 1 EACH STRIP IN SCH ×4 (08:07→22:19)
[2018-12-19] MEDS: CARVEDILOL 12.5 MG TABLET PO SCH ×2 (09:00→17:00)
[2018-12-19] MEDS: TRIAMCINOLONE OINT 0.1% 15 GM TUBE TP SCH ×2 (09:00→17:00)
[2018-12-19] MEDS: AZELASTINE NASAL SPRAY 30 ML BOTTLE NS SCH ×2 (09:00→17:42)
[2018-12-19] MEDS: hydrALAZINE HCL 50 MG TABLET PO SCH ×3 (09:00→17:00)
[2018-12-19] MEDS: CLOPIDOGREL BISULFATE 75 MG TABLET PO SCH (09:08)
[2018-12-19] MEDS: DOCUSATE SODIUM 100 MG CAPSULE PO SCH ×2 (09:08→17:00)
[2018-12-19] MEDS: LEVETIRACETAM (250 MG) 250 MG TABLET PO SCH ×2 (09:08→21:00)
[2018-12-19] MEDS: INSULIN REGULAR, HUMAN 100 UNIT/ML 3 ML VIAL SQ PRN ×3 (09:08→17:34)
[2018-12-19] MEDS: CALCIUM CARBONATE (1250) 500 MG TABLET PO SCH (09:09)
[2018-12-19] MEDS: ASPIRIN EC 81 MG TABLET.DR PO SCH (09:09)
[2018-12-19] MEDS: ATORVASTATIN 40 MG TABLET PO SCH (09:09)
[2018-12-19] MEDS: SERTRALINE HCL 25 MG TABLET PO SCH ×2 (09:09→17:00)
[2018-12-19] MEDS: BACLOFEN (10 MG) 10 MG TABLET PO SCH ×2 (09:09→17:00)
[2018-12-19] MEDS: LINAGLIPTIN 5 MG TABLET PO SCH (09:09)
--- NOTE | 2018-12-19 10:28 | NUR ---
Pt had another episode of nausea & vomited bilious output. Zofran given 2 hours ago. Referred to Dr. Fletcher w/ orders to give Decadron 10mg IVP x 1 dose & start on Reglan 10mg IVP TID PRN.
[2018-12-19] MEDS ORDERED: DEXAMETHASONE SOD PHOSPHATE 10 MG/ML VIAL IV ONE (10:30)
[2018-12-19] MEDS: HYDROCODONE/APAP 5/325MG 1 EACH TABLET PO PRN (10:40)
[2018-12-19] MEDS: METOCLOPRAMIDE HCL 10 MG/2 ML VIAL IV PRN ×2 (11:29→21:02)
--- NOTE | 2018-12-19 11:30 | NUR ---
HD ended w/ 2L output c/o Carl ELIZONDO RN.
--- NOTE | 2018-12-19 11:30 | NUR ---
Pt seen & examined by Dr. Fletcher w/ orders to do STAT CXR d/t episode of desaturation 82% while on NC at 2lpm.
[2018-12-19] MEDS: LOSARTAN POTASSIUM 50 MG TABLET PO SCH (11:52)
[2018-12-19] MEDS: DILTIAZEM HCL CD 240 MG PO SCH (11:52)
--- NOTE | 2018-12-19 13:00 | NUR ---
Pt noted to be restless, confused, trying to get out of bed & pull out his HD cath - placed on R wrist restraint for pt's safety. Dr. Rodriguez made aware.
--- NOTE | 2018-12-19 17:15 | NUR ---
Pt noted to be drowsy, not appropriately responding to questions asked, mumbles. at bedside to translate. Per , he seems to be the same since this AM. Explained to the that RN was able to talk to him this AM, he was confused at that time but able to follow simple commands. Dr. Rodriguez made aware w/ orders to do STAT ABG. RT made aware. Dr. Longoria to see the pt. Son at bedside, updated.
[2018-12-19] MEDS: QUETIAPINE FUMARATE 25 MG TABLET PO SCH (17:42)
[2018-12-19] MEDS: GABAPENTIN 100 MG CAPSULE PO SCH (17:42)
[2018-12-19 18:11] LABS: ABG BASE EXCESS -8.3 mmol/L; ABG OXYGEN SATURATION 92.8 % (92.0-98.5); ABG PCO2 29.5 mmHg (35.0-45.0); ABG PH 7.352 (7.350-7.450); ABG PO2 75.7 mmHg (75.0-100.0); AaDO2 146.8 mmHg; COHb 0.9 % (0.5-1.5); MetHb 0.5 % (0.0-1.5); O2Hb 91.5 % (94.0-97.0); SITE, ABG Left Brachial; VENT MODE, BG 4L NASAL CANNULA
--- NOTE | 2018-12-19 18:58 | NUR ---
RADIOLOGY MANAGER CLOSING NOTES: Pt not in any distress. No SOB while on NC at 4lpm. ST on telemonitor. IV line access kept patent & intact w/ no s/sx of infection/infiltration noted. Dr. Rodriguez made aware re: ABG results w/ NNO. Dr. Longoria to see pt tonight. R wrist restraints kept on. Safety precaution observed at all times. Family updated. Will endorse to PM RN for PRABHJOT.
--- NOTE | 2018-12-19 19:45 | NUR ---
RN NOTES Received bedside report from am rn . Pt is A/O x 1, denies any pain/discomfort at this time. on NC at 2 l/pmwith spo2 of 97%. STon telemonitor. Has 2 IV line access, R AC G20 & L AC G20, both SL, flushing well, no s/sx of infection/infiltration noted. R CW HD Cath w/ C/D/I dressing, per report pt HAD HD today. Weakness noted more on L > R. Pt oriented to room. Safety precaution in place w/ bed in lowest & locked pos. Call light placed w/in reach. Will cont to monitor & attend pt needs.
--- NOTE | 2018-12-19 20:49 | NUR ---
RN NOTES MD IS AT THE BEDSIDE FOR NEURO CONSULT AND MRI BRAIN WITHOUT CONTRAST IN THE MORNING IS IN PLACE. PATIENT IS LETHARGIC , CAN NOT FOLLOW COMMENDS AND COULDN'T SWALLOW PO MEDICATIONS. WILL CALL THE MD FOR NEW ORDERS. WILL CONTINUE TO MONITOR PATIENT CLOSELY.
--- NOTE | 2018-12-19 21:48 | NUR ---
RN NOTES PATIENT CAN NOT FOLLOW COMMENDS AND COULDN'T SWALLOW HIS PO LEVETIRACETAM. PO MEDICATIONS WILL BE HELD FOR NOW. WILL CONTINUE TO MONITOR PATIENT.
[2018-12-19] MEDS: DOXAZOSIN MESYLATE (1 MG) 1 MG TABLET PO SCH (22:00)
[2018-12-19] MEDS: LORAZEPAM INJ 2 MG/ML VIAL IV PRN (22:13)
[2018-12-19] MEDS ORDERED: INSULIN GLARGINE, 100 UNIT/ML CARTRIDGE SQ ONE (22:53)
[2018-12-19] MEDS: INSULIN GLARGINE, 100 UNIT/ML CARTRIDGE SQ SCH (23:14)
[2018-12-20] VITALS (64 sets, daily range): BP systolic 82–247; BP diastolic 52–140
[2018-12-20] MEDS: hydrALAZINE HCL IV 20 MG VIAL IV PRN ×2 (00:57→08:36)
[2018-12-20] MEDS: MORPHINE SULFATE INJ 2 MG/ML DISP.SYRIN IV PRN (01:08)
[2018-12-20] MEDS: BLOOD SUGAR DIAGNOSTIC 1 EACH STRIP IN SCH ×4 (08:28→22:49)
[2018-12-20] MEDS: INSULIN REGULAR, HUMAN 100 UNIT/ML 3 ML VIAL SQ PRN ×4 (08:30→23:09)
[2018-12-20] MEDS: POLYVINYL ALCOHOL 15 ML BOTTLE EACHEYE PRN (08:31)
[2018-12-20] MEDS: AZELASTINE NASAL SPRAY 30 ML BOTTLE NS SCH ×2 (08:31→17:15)
--- NOTE | 2018-12-20 08:54 | NUR ---
Pt noted to be restless, unable to respond to questions asked. BP still is persistently high despite of the IV Hydralazine PRN given. Dr. Rodriguez made aware, agreed to insert NGT. Pt has scheduled BP medications. 0900H Prior to inserting NGT, pt vomited bilious output, moderate amount. Pt noted holding it in his mouth despite of telling him to spit it out. NGT was able to insert on L nare. O2 saturation noted dropped to 85% while on NC at 4lpm. Pt deep suctioned brownish output c/o RT & placed on NRB/15lpm, sats went up to 90% though still restless. STAT CXR & ABG ordered. ABG results relayed to Dr. Rodriguez c/o RT w/ orders to intubate pt. 0945H Dr. Rodriguez intubated pt. STAT CXR ordered post intubation. ordered to give 1 dose of Hydralazine 10 mg IVP d/t high BP. Start pt on Diprivan Drip. was able to talk to the family over the phone regarding pt's current status. Per Dr. Rodriguez may insert PICC line. Consent was secured & placed in the chart. updated regarding the coffee ground output from NGT w/ orders made & carried out. Per to connect to LIS & keep pt NPO for now. Once pt is stable may proceed w/ CT scan of the head w/o contrast. Again Dr. Rodriguez updated the family at bedside regarding pt's condition. Questions/ concerns answered by .
[2018-12-20] MEDS: SERTRALINE HCL 25 MG TABLET PO SCH ×2 (09:00→17:00)
[2018-12-20] MEDS: LOSARTAN POTASSIUM 50 MG TABLET PO SCH (09:00)
[2018-12-20] MEDS: CARVEDILOL 12.5 MG TABLET PO SCH ×2 (09:00→17:00)
[2018-12-20] MEDS: DILTIAZEM HCL CD 240 MG PO SCH (09:00)
[2018-12-20] MEDS: ASPIRIN EC 81 MG TABLET.DR PO SCH (09:00)
[2018-12-20] MEDS: TRIAMCINOLONE OINT 0.1% 15 GM TUBE TP SCH ×2 (09:00→17:00)
[2018-12-20] MEDS: CALCIUM CARBONATE (1250) 500 MG TABLET PO SCH (09:00)
[2018-12-20] MEDS: LEVETIRACETAM (250 MG) 250 MG TABLET PO SCH ×2 (09:00→21:00)
[2018-12-20] MEDS: LINAGLIPTIN 5 MG TABLET PO SCH (09:00)
[2018-12-20] MEDS: hydrALAZINE HCL 50 MG TABLET PO SCH ×3 (09:00→17:00)
[2018-12-20] MEDS: DOCUSATE SODIUM 100 MG CAPSULE PO SCH ×2 (09:00→17:00)
[2018-12-20] MEDS: BACLOFEN (10 MG) 10 MG TABLET PO SCH ×2 (09:00→17:00)
[2018-12-20] MEDS: CLOPIDOGREL BISULFATE 75 MG TABLET PO SCH (09:00)
[2018-12-20] MEDS: ATORVASTATIN 40 MG TABLET PO SCH (09:00)
[2018-12-20] MEDS ORDERED: hydrALAZINE HCL IV 20 MG VIAL IV ONE (10:00)
[2018-12-20] MEDS ORDERED: PROPOFOL 10MG/ML 50ML 50 ML IV PRN ×2 (10:00)
[2018-12-20] MEDS ORDERED: VANCOMYCIN 1 GM in IV NS 0.9% 250 ML IV ONE (10:00)
[2018-12-20] MEDS ORDERED: FEE PK DOSING 1 MIN EA MC ONE (10:19)
[2018-12-20] MEDS ORDERED: PROPOFOL 100 ML IV PRN ×3 (10:30→16:53)
[2018-12-20] MEDS: PIPERACILLIN /TAZOBACTAM 2.25 G in IV D5W 50 ML IV SCH ×3 (11:15→21:30)
[2018-12-20] MEDS: NEXIUM 40 MG VIAL IV SCH ×2 (11:25→21:10)
[2018-12-20] MEDS: LORAZEPAM INJ 2 MG/ML VIAL IV PRN ×3 (12:49→21:09)
[2018-12-20 13:02] LABS: ABG BASE EXCESS -5.1 mmol/L; ABG OXYGEN SATURATION 43.9 % (92.0-98.5); ABG PCO2 43.3 mmHg (35.0-45.0); ABG PH 7.305 (7.350-7.450); ABG PO2 28.1 mmHg (75.0-100.0); AaDO2 496.8 mmHg; COHb 0.8 % (0.5-1.5); MetHb 0.8 % (0.0-1.5); O2Hb 43.2 % (94.0-97.0); SITE, ABG Right Radial; VENT MODE, BG !00% NRB
[2018-12-20 13:03] LABS: ABG BASE EXCESS -0.3 mmol/L; ABG OXYGEN SATURATION 98.5 % (92.0-98.5); ABG PCO2 28.9 mmHg (35.0-45.0); ABG PO2 197.3 mmHg (75.0-100.0); AaDO2 486.8 mmHg; COHb 0.3 % (0.5-1.5); MetHb 0.5 % (0.0-1.5); O2Hb 97.7 % (94.0-97.0); SITE, ABG Right Radial; VENT MODE, BG AC 14 500 +8 100%
[2018-12-20 14:17] LABS: BASOPHILS % (AUTO) 0.5 % (0.0-2.0); EOSINOPHILS % (AUTO) 0.3 % (0.0-6.0); HEMATOCRIT 31 % (39-51); HEMOGLOBIN 10.6 g/dL (13.5-17.5); LYMPHOCYTES # (AUTO) 0.4 /CMM (0.8-4.8); MEAN CORPUSCULAR HGB CONC 34 g/dl (31.0-36.0); MEAN CORPUSCULAR VOLUME 97 fL (80-96); MONOCYTES # (AUTO) 0.4 /CMM (0.1-1.30); MONOCYTES % (AUTO) 6.6 % (2.0-12.0); NEUTROPHILS # (AUTO) 4.8 /CMM (1.8-8.9); NEUTROPHILS % (AUTO) 85.6 % (43.0-81.0); PLATELET COUNT (AUTO) 104 /CMM (150-450); RED BLOOD CELL COUNT(AUTO) 3.24 MIL/uL (4.5-6.0); WHITE BLOOD COUNT (AUTO) 5.6 K/uL (4.3-11.0)
[2018-12-20 14:26] LABS: CALCIUM, SERUM 8.6 mg/dL (8.5-10.1); POTASSIUM 3.6 mmol/L (3.5-5.1)
[2018-12-20 14:28] LABS: CREATININE 9.3 mg/dL (0.6-1.3)
[2018-12-20] MEDS: PROPOFOL 100 ML IV PRN ×2 (17:06→22:30)
[2018-12-20] MEDS: GABAPENTIN 100 MG CAPSULE PO SCH (17:06)
[2018-12-20] MEDS: QUETIAPINE FUMARATE 25 MG TABLET PO SCH (17:07)
--- NOTE | 2018-12-20 17:34 | NUR ---
Pt still restless while on Diprivan Drip at [address] Auguste changed the frequency/dose of Ativan to 1mg q1H PRN.
--- NOTE | 2018-12-20 18:15 | NUR ---
HD ended w/ 700L output c/o Lillie ROMERO. Pt tolerated the procedure well. Vancomycin trough level checked post HD.
--- NOTE | 2018-12-20 19:00 | NUR ---
CARDROOM WORKER CLOSING NOTES: Pt not in any distress, sedated. No SOB while on MV via ETT w/ FiO2 50%, sating at 94%. ST on telemonitor. IV line access kept patent & intact w/ no s/sx of infection/infiltration noted - WHITLEY PICC line w/ Diprivan x 50 mcg/kg/min infusing well. NGT kept patent & intact connected to LIS, still w/ coffee ground output. updated about pt condition, made him aware that MRI was not done d/t intubation - per MD CT scan of the head w/o contrast is okay. B soft wrist restraints kept on. Safety precaution observed at all times. Family updated about pt condition. Endorsed to PM RN for PRABHJOT. Endorsed to PM RN that per Dr. Auguste, pt may go to radiology to do CT scan of the head w/o contrast.
--- NOTE | 2018-12-20 19:45 | NUR ---
AUTO WRECKER REMOVED IV FROM LEFT AC IT IS LEAKING AND BLEEDING. CONTINUE TO MONITOR.
--- NOTE | 2018-12-20 20:00 | NUR ---
BLANKET CUTTING MACHINE OPERATORELECTRICAL WORKER AT BEDSIDE; UPDATED ON PLAN OF CARE.
[2018-12-20] MEDS: VANCOMYCIN 500 MG in IV D5W 100 ML IV PRN (20:16)
--- NOTE | 2018-12-20 21:10 | NUR ---
PEARL STRINGER PER PT ; PT NOTED TO BE TWITCHING; ATIVAN 1 MG IVP GIVEN. CONTINUE TO MONITOR. ALSO NOTED PT HAS NOT BEEN RECEIVING KEPPRA PT IS NPO. CALLED MD TO VERIFY IF KEPPRA NEEDS TO BE GIVEN IV. CONTINUE TO MONITOR.
[2018-12-20] MEDS: DOXAZOSIN MESYLATE (1 MG) 1 MG TABLET PO SCH (21:29)
--- NOTE | 2018-12-20 21:45 | NUR ---
DIAGNOSTIC SALES SPECIALIST PER MD START KEPPRA IV PT REMAINS NPO.
[2018-12-20] MEDS: INSULIN GLARGINE, 100 UNIT/ML CARTRIDGE SQ SCH (22:00)
[2018-12-20] MEDS ORDERED: LEVETIRACETAM (500MG) 500 MG/5 ML VIAL IV ONE (22:16)
[2018-12-20] MEDS: LEVETIRACETAM (500MG) 250 MG in IV NS 0.9% 100 ML IV SCH (22:30)
[2018-12-21] VITALS (40 sets, daily range): BP systolic 93–190; BP diastolic 51–102
--- NOTE | 2018-12-21 02:00 | NUR ---
EMBEDDED CASE MANAGER PT TAKEN FOR HEAD CT; TOLERATED WELL. CALLED [facility] FOR RESULTS.
[2018-12-21] MEDS: PROPOFOL 100 ML IV PRN ×5 (02:38→20:35)
[2018-12-21 04:59] LABS: BASOPHILS # (AUTO) 0.1 /CMM (0.0-0.2); BASOPHILS % (AUTO) 0.8 % (0.0-2.0); EOSINOPHILS % (AUTO) 5.5 % (0.0-6.0); HEMATOCRIT 31 % (39-51); HEMOGLOBIN 10.5 g/dL (13.5-17.5); LYMPHOCYTES # (AUTO) 0.9 /CMM (0.8-4.8); LYMPHOCYTES % (AUTO) 10.9 % (20.0-44.0); MEAN CORPUSCULAR HGB CONC 34 g/dl (31.0-36.0); MEAN CORPUSCULAR VOLUME 98 fL (80-96); MONOCYTES # (AUTO) 0.3 /CMM (0.1-1.30); MONOCYTES % (AUTO) 4.4 % (2.0-12.0); NEUTROPHILS # (AUTO) 6.2 /CMM (1.8-8.9); NEUTROPHILS % (AUTO) 78.4 % (43.0-81.0); PLATELET COUNT (AUTO) 86 /CMM (150-450); RED BLOOD CELL COUNT(AUTO) 3.17 MIL/uL (4.5-6.0); WHITE BLOOD COUNT (AUTO) 7.9 K/uL (4.3-11.0)
[2018-12-21 05:20] LABS: CREATININE 6.1 mg/dL (0.6-1.3); POTASSIUM 3.3 mmol/L (3.5-5.1)
[2018-12-21] MEDS: PIPERACILLIN /TAZOBACTAM 2.25 G in IV D5W 50 ML IV SCH ×3 (05:36→20:01)
--- NOTE | 2018-12-21 06:00 | NUR ---
DIRECTOR OF MATH PER LAB RESULTS BLOOD GLUCOSE 56; CHECKED 65. NO ORDERS AT THIS TIME. CONTINUE TO MONITOR.
[2018-12-21 06:34] LABS: BAND % (MANUAL) 8 % (0.0-5.0); LYMPHOCYTES % (MANUAL) 9 % (16-48); MONOCYTES % (MANUAL) 2 % (0-11.0); NEUTROPHILS % (MANUAL) 76 (42-76)
[2018-12-21 06:35] LABS: EOSINOPHILS % (MANUAL) 5 % (0-4)
--- NOTE | 2018-12-21 07:48 | NUR ---
RT NOTE PT REC'D ORALLY INTUBATED VIA ETT 7.5 SECURED @ 24 CM AT THE LIP, ON MECH VENT WITH NOTED SETTINGS. PT IS SEDATED. SX DONE PRN, NO RESP DISTRESS OR SOB NOTED. ALARMS ARE SET AND AUDIBLE. VENT PLUGGED INTO RED OUTLET. AMBU BAG BEDSIDE. WILL CONTINUE TO MONITOR.
[2018-12-21] MEDS: BLOOD SUGAR DIAGNOSTIC 1 EACH STRIP IN SCH ×4 (08:12→23:32)
[2018-12-21 08:16] LABS: ABG OXYGEN SATURATION 93.8 % (92.0-98.5); ABG PCO2 37.4 mmHg (35.0-45.0); ABG PH 7.443 (7.350-7.450); ABG PO2 76.4 mmHg (75.0-100.0); COHb 0.2 % (0.5-1.5); MetHb 0.4 % (0.0-1.5); O2Hb 93.2 % (94.0-97.0); SITE, ABG Left Brachial
--- NOTE | 2018-12-21 08:20 | NUR ---
RN NOTES RECEIVED PT SEDATED ORALLY INTUBATED WIT ETT 7.5 AND 24 CM AT LIPLINE. RESPONSIVE TO PAIN WITH VENT SETTING AC 14 TV 450 FIO2 50% AND PEEP 5 TOLERATED WELL SATURATION 98%. WARMTH TO TOUCH , AFEBRILE. NOTED THAT PT SHAKING A LI TELE MONITOR REVEALS SR WITH PVC'S . IV SITE ON WHITLEY PICC LINE WITH DIPRIVAN @ 50 MCG/KG/MIN AND RAC G 20 TKO INTACT AND PATENT. RCW REMAINED WITH CLEANED DRESSING. PT HAS NGT ON LEFT NARES DRAINING WITH COFFEE GROUND OUTPUT. PT IS UNABLE TO FOLLOW COMMAND AT THIS TIME DUE TO SEDATION. TURNED AND REPOSITIONED PT COMFORTABLE KEPT PT CLEAN AND DRY. WILL CONTINUE TO MONITOR.
[2018-12-21] MEDS: TRIAMCINOLONE OINT 0.1% 15 GM TUBE TP SCH ×2 (09:00→18:57)
[2018-12-21] MEDS: DILTIAZEM HCL CD 240 MG PO SCH (09:00)
[2018-12-21] MEDS: hydrALAZINE HCL 50 MG TABLET PO SCH ×3 (09:00→17:00)
[2018-12-21] MEDS: ASPIRIN EC 81 MG TABLET.DR PO SCH (09:00)
[2018-12-21] MEDS ORDERED: ERGOCALCIFEROL (VITAMIN D 2) 50,000 UNIT CAPSULE PO SCH (09:00)
[2018-12-21] MEDS: CLOPIDOGREL BISULFATE 75 MG TABLET PO SCH (09:00)
[2018-12-21] MEDS: ATORVASTATIN 40 MG TABLET PO SCH (09:00)
[2018-12-21] MEDS: LINAGLIPTIN 5 MG TABLET PO SCH (09:00)
[2018-12-21] MEDS: CARVEDILOL 12.5 MG TABLET PO SCH ×2 (09:00→17:00)
[2018-12-21] MEDS: SERTRALINE HCL 25 MG TABLET PO SCH ×2 (09:00→17:00)
[2018-12-21] MEDS: BACLOFEN (10 MG) 10 MG TABLET PO SCH ×2 (09:00→17:00)
[2018-12-21] MEDS: DOCUSATE SODIUM 100 MG CAPSULE PO SCH ×2 (09:00→17:00)
[2018-12-21] MEDS: LOSARTAN POTASSIUM 50 MG TABLET PO SCH (09:00)
[2018-12-21] MEDS: hydrALAZINE HCL IV 20 MG VIAL IV PRN ×2 (09:07→19:46)
[2018-12-21] MEDS: MORPHINE SULFATE INJ 2 MG/ML DISP.SYRIN IV PRN ×2 (09:08→22:58)
[2018-12-21] MEDS: CALCIUM CARBONATE (1250) 500 MG TABLET PO SCH (09:20)
[2018-12-21] MEDS: NEXIUM 40 MG VIAL IV SCH ×2 (09:23→20:01)
[2018-12-21] MEDS: LEVETIRACETAM (500MG) 250 MG in IV NS 0.9% 100 ML IV SCH ×2 (09:24→20:44)
[2018-12-21] MEDS: AZELASTINE NASAL SPRAY 30 ML BOTTLE NS SCH ×2 (09:24→17:18)
--- NOTE | 2018-12-21 12:30 | NUR ---
RN NOTES S/E BY DR. SILVERIO WITH NEW ORDER ACKNOWLEDGED.
[2018-12-21] MEDS ORDERED: DEXTROSE 50%-WATER 50 ML DISP.SYRIN IV PRN (16:00)
--- NOTE | 2018-12-21 16:30 | NUR ---
APPLICATION DBA NOTE DIALYSIS NURSE AT BEDSIDE. DR. SILVERIO ORDERED DIALYSIS TODAY INSTEAD OF TOMORROW MORNING.
[2018-12-21] MEDS: GABAPENTIN 100 MG CAPSULE PO SCH (17:58)
[2018-12-21] MEDS: QUETIAPINE FUMARATE 25 MG TABLET PO SCH (17:58)
--- NOTE | 2018-12-21 19:00 | NUR ---
CLINICAL DIETITIAN NOTE DIALYSIS ENDED. OUTPUT 700ML. PT REMAINS STABLE. FAMILY AT BEDSIDE.
[2018-12-21] MEDS: DOXAZOSIN MESYLATE (1 MG) 1 MG TABLET PO SCH (21:24)
[2018-12-21] MEDS: VANCOMYCIN 500 MG in IV D5W 100 ML IV PRN (21:41)
[2018-12-21] MEDS: INSULIN GLARGINE, 100 UNIT/ML CARTRIDGE SQ SCH (22:00)
[2018-12-21] MEDS: POLYVINYL ALCOHOL 15 ML BOTTLE EACHEYE PRN (22:04)
[2018-12-22] VITALS (77 sets, daily range): BP systolic 58–193; BP diastolic 50–101
[2018-12-22] MEDS: LORAZEPAM INJ 2 MG/ML VIAL IV PRN (00:11)
--- NOTE | 2018-12-22 00:37 | NUR ---
MEDICAL LAB TECHNOLOGIST NOTE NOTED PT RESTLESS AND SLIGHTLY AGITATED ON DIP @ 50MCG/KG/MIN. SPOKE WITH SIZING MACHINE AND DRIER OPERATOR DR. PRUITT WITH ORDERS TO INCREASE MAX DOSE OF DIPRIVAN TO 100 MCG/KG/MIN. ORDERS NOTED AND CARRIED. PT REMAINS INTUBATED. WILL MONITOR.
[2018-12-22] MEDS: PROPOFOL 100 ML IV PRN ×3 (02:29→12:04)
[2018-12-22] MEDS: hydrALAZINE HCL IV 20 MG VIAL IV PRN (02:35)
[2018-12-22 04:39] LABS: BASOPHILS # (AUTO) 0.1 /CMM (0.0-0.2); BASOPHILS % (AUTO) 0.6 % (0.0-2.0); EOSINOPHILS % (AUTO) 7.2 % (0.0-6.0); HEMATOCRIT 30 % (39-51); HEMOGLOBIN 9.9 g/dL (13.5-17.5); LYMPHOCYTES # (AUTO) 0.7 /CMM (0.8-4.8); LYMPHOCYTES % (AUTO) 7.9 % (20.0-44.0); MEAN CORPUSCULAR HGB CONC 33 g/dl (31.0-36.0); MEAN CORPUSCULAR VOLUME 100 fL (80-96); MONOCYTES # (AUTO) 0.4 /CMM (0.1-1.30); MONOCYTES % (AUTO) 4.8 % (2.0-12.0); NEUTROPHILS # (AUTO) 7.3 /CMM (1.8-8.9); NEUTROPHILS % (AUTO) 79.5 % (43.0-81.0); PLATELET COUNT (AUTO) 88 /CMM (150-450); WHITE BLOOD COUNT (AUTO) 9.2 K/uL (4.3-11.0)
[2018-12-22 04:53] LABS: CALCIUM, SERUM 8.8 mg/dL (8.5-10.1); CREATININE 5.6 mg/dL (0.6-1.3); MAGNESIUM 2.2 mg/dL (1.8-2.4); PHOSPHORUS 6.5 mg/dL (2.5-4.9); POTASSIUM 3.3 mmol/L (3.5-5.1)
[2018-12-22] MEDS: PIPERACILLIN /TAZOBACTAM 2.25 G in IV D5W 50 ML IV SCH ×3 (05:36→20:01)
[2018-12-22] MEDS: BLOOD SUGAR DIAGNOSTIC 1 EACH STRIP IN SCH ×3 (05:42→17:05)
[2018-12-22 06:11] LABS: EOSINOPHILS % (MANUAL) 8 % (0-4); LYMPHOCYTES % (MANUAL) 4 % (16-48); MONOCYTES % (MANUAL) 3 % (0-11.0); NEUTROPHILS % (MANUAL) 85 (42-76)
[2018-12-22 08:04] LABS: ABG BASE EXCESS -3.2 mmol/L; ABG OXYGEN SATURATION 96.5 % (92.0-98.5); ABG PCO2 35.5 mmHg (35.0-45.0); ABG PH 7.394 (7.350-7.450); ABG PO2 104.4 mmHg (75.0-100.0); AaDO2 212.2 mmHg; COHb 0.3 % (0.5-1.5); MetHb 0.8 % (0.0-1.5); O2Hb 95.4 % (94.0-97.0); SITE, ABG Left Brachial; VENT MODE, BG AC 450.14.+5.50%
--- NOTE | 2018-12-22 08:22 | NUR ---
INITIAL SLIP BOX CHANGER NOTE RCVD PT INTUBATED 7.12/16, SEDATED ON DIPRIVAN, BILATERAL SOFT WRIST RESTRAINTS IN PLACE, CIRCULATION CHECKS DONE, ST ON MONITOR, TOLERATING ORDERED VENT SETTINGS, NG-TUBE TO LOW INTERMITTENT SUCTION WITH GREEN GASTRIC CONTENTS OBSERVED. WILL CONTINUE TO MONITOR PT FOR SAFETY AND COMFORT. BED IN LOW AND LOCKED POSITION, HEAD OF BED ELEVATED.
[2018-12-22] MEDS: LEVETIRACETAM (500MG) 250 MG in IV NS 0.9% 100 ML IV SCH ×2 (09:54→20:01)
[2018-12-22] MEDS: NEXIUM 40 MG VIAL IV SCH ×2 (09:55→20:01)
[2018-12-22] MEDS: AZELASTINE NASAL SPRAY 30 ML BOTTLE NS SCH ×2 (09:56→17:06)
[2018-12-22] MEDS: ASPIRIN 81 MG TAB.CHEW PO SCH (09:56)
[2018-12-22] MEDS: CALCIUM CARBONATE (1250) 500 MG TABLET PO SCH (09:56)
[2018-12-22] MEDS: DOCUSATE SODIUM LIQ 100 MG/10 ML UDC NG SCH ×2 (09:56→17:08)
[2018-12-22] MEDS: SERTRALINE HCL 25 MG TABLET PO SCH ×2 (09:56→17:08)
[2018-12-22] MEDS: POLYVINYL ALCOHOL 15 ML BOTTLE EACHEYE PRN (09:56)
[2018-12-22] MEDS: ATORVASTATIN 40 MG TABLET PO SCH (09:56)
[2018-12-22] MEDS: CLOPIDOGREL BISULFATE 75 MG TABLET PO SCH (09:56)
[2018-12-22] MEDS: BACLOFEN (10 MG) 10 MG TABLET PO SCH ×2 (09:56→17:08)
[2018-12-22] MEDS: LINAGLIPTIN 5 MG TABLET PO SCH (09:56)
[2018-12-22] MEDS: LOSARTAN POTASSIUM 50 MG TABLET PO SCH (09:57)
[2018-12-22] MEDS: TRIAMCINOLONE OINT 0.1% 15 GM TUBE TP SCH ×2 (09:57→17:06)
[2018-12-22] MEDS: CARVEDILOL 12.5 MG TABLET PO SCH ×2 (09:58→17:09)
[2018-12-22] MEDS: hydrALAZINE HCL 50 MG TABLET PO SCH ×3 (09:58→17:00)
--- NOTE | 2018-12-22 11:11 | NUR ---
SEDATION VACATION NOTE PT'S DIPRIVAN TITRATED DOWN FOR SEDATION VACATION, BP ELEVATED INTO THE 190'S. PT WAS PLACED BACK ON SEDATION. WILL CONTINUE TO MONITOR.
[2018-12-22] MEDS: DILTIAZEM HCL 30 MG TABLET PO SCH ×3 (12:00→18:26)
[2018-12-22] MEDS: INSULIN REGULAR, HUMAN 100 UNIT/ML 3 ML VIAL SQ PRN ×2 (12:37→17:11)
[2018-12-22] MEDS: GABAPENTIN 100 MG CAPSULE PO SCH (17:08)
--- NOTE | 2018-12-22 17:58 | NUR ---
INFORMATION AND DATA ARCHITECT ANALYST NOTE DIPRIVAN TITRATED OFF, PT ABLE TO OPEN EYES BUT REMAINED DROWSY, UNABLE TO FOLLOW COMMANDS, PT'S FAMILY AT BEDSIDE.
[2018-12-22] MEDS: QUETIAPINE FUMARATE 25 MG TABLET PO SCH (18:00)
--- NOTE | 2018-12-22 19:24 | NUR ---
PROBE OPERATOR NOTE PT WAS RE-STARTED ON DIPRIVAN LOW DOSE, ST ON MONITOR, TOLERATING ORDERED VENT SETTINGS WELL, LEFT NG-TUBE PLACEMENT VERIFIED BY AUSCULTATION/ASPIRATION OF GASTRIC CONTENTS, WHITLEY PICC C/D/I/PATENT, NO S/O INFILTRATION/PHLEBITIS OBSERVED UPON FLUSHING. PT'S CARE ENDORSED TO SCHEDULER CONVEYOR RN FOR CONTINUITY OF CARE, BED IN LOW AND LOCKED POSITION, CALL LIGHT WITHIN REACH, HEAD OF BED ELEVATED. PT'S FAMILY UPDATED REGARDING PLAN OF CARE FOR WEANING TRIAL IN AM.
--- NOTE | 2018-12-22 20:00 | NUR ---
AUTOMATIC SPOOLER OPERATOR - NOTES - RECEIVED PT INTUBATED 7.12/16, SEDATED ON DIPRIVAN 10, BILATERAL SOFT WRIST RESTRAINTS IN PLACE, CIRCULATION CHECKS DONE, ST/SR ON MONITOR, TOLERATING ORDERED VENT SETTINGS, NG-TUBE TO LOW INTERMITTENT SUCTION WITH GREEN GASTRIC CONTENTS OBSERVED. WILL CONTINUE TO MONITOR PT FOR SAFETY AND COMFORT. BED IN LOW AND LOCKED POSITION, HEAD OF BED ELEVATED.
[2018-12-22] MEDS: INSULIN GLARGINE, 100 UNIT/ML CARTRIDGE SQ SCH (22:00)
[2018-12-22] MEDS: DOXAZOSIN MESYLATE (1 MG) 1 MG TABLET PO SCH (22:25)
[2018-12-23] VITALS (50 sets, daily range): BP systolic 73–122; BP diastolic 26–73
[2018-12-23] MEDS: PROPOFOL 100 ML IV PRN (00:07)
[2018-12-23] MEDS: BLOOD SUGAR DIAGNOSTIC 1 EACH STRIP IN SCH ×4 (00:07→17:27)
[2018-12-23] MEDS: INSULIN REGULAR, HUMAN 100 UNIT/ML 3 ML VIAL SQ PRN ×2 (00:12→18:09)
[2018-12-23] MEDS: DILTIAZEM HCL 30 MG TABLET PO SCH ×2 (00:12→05:21)
--- NOTE | 2018-12-23 03:00 | NUR ---
REPORT GIVEN TO HIRAM ROMERO FOR PRABHJOT
[2018-12-23] MEDS: PIPERACILLIN /TAZOBACTAM 2.25 G in IV D5W 50 ML IV SCH ×3 (05:12→21:05)
[2018-12-23 05:20] LABS: BASOPHILS % (AUTO) 0.4 % (0.0-2.0); EOSINOPHILS % (AUTO) 6.4 % (0.0-6.0); HEMATOCRIT 26 % (39-51); HEMOGLOBIN 8.8 g/dL (13.5-17.5); LYMPHOCYTES # (AUTO) 0.7 /CMM (0.8-4.8); LYMPHOCYTES % (AUTO) 7.6 % (20.0-44.0); MEAN CORPUSCULAR HGB CONC 34 g/dl (31.0-36.0); MEAN CORPUSCULAR VOLUME 98 fL (80-96); MONOCYTES # (AUTO) 0.5 /CMM (0.1-1.30); MONOCYTES % (AUTO) 5.4 % (2.0-12.0); NEUTROPHILS # (AUTO) 7.6 /CMM (1.8-8.9); NEUTROPHILS % (AUTO) 80.2 % (43.0-81.0); PLATELET COUNT (AUTO) 102 /CMM (150-450); RED BLOOD CELL COUNT(AUTO) 2.66 MIL/uL (4.5-6.0); WHITE BLOOD COUNT (AUTO) 9.5 K/uL (4.3-11.0)
[2018-12-23 05:31] LABS: MAGNESIUM 2.3 mg/dL (1.8-2.4); POTASSIUM 3.5 mmol/L (3.5-5.1)
[2018-12-23 05:56] LABS: CREATININE 8.1 mg/dL (0.6-1.3); PHOSPHORUS 8.1 mg/dL (2.5-4.9)
--- NOTE | 2018-12-23 07:15 | NUR ---
PRACTICE CONSULTANT OPENING NOTE RECEIVED REPORT FROM PM NURSE .SHE CONTINUING CARE FOR PATIENT TILL 999. PT INTUBATED 7.12/16, SEDATED ON DIPRIVAN 10, BILATERAL SOFT WRIST RESTRAINTS IN PLACE, CIRCULATION CHECKS DONE, ST/SR ON MONITOR, TOLERATING ORDERED VENT SETTINGS, NG-TUBE TO LOW INTERMITTENT SUCTION WITH GREEN GASTRIC CONTENTS OBSERVED. WILL CONTINUE TO MONITOR PT FOR SAFETY AND COMFORT. BED IN LOW AND LOCKED POSITION, HEAD OF BED ELEVATED.
--- NOTE | 2018-12-23 07:27 | NUR ---
RN NOTES PT REMAINED IN THE SAME CONDITION ORALLY INTUBATED VENT SETTING TOLERATED WELL NO CHANGED FROM THE SETTING. NO SIGNIFICANT PRABHJOT THROUGHOUT THE SHIFT. ALL DUE MEDICINE TOLERATED WELL. NO URINE OUTPUT AND NO BOWEL. IV SITE REMAINED INTACT AND PATENT WITH DIPRIVAN TITRATED ORDERED. AFEBRILE. VSS. KEPT PT CLEAN AND COMFORTABLE IN BED. TURNED AND REPOSITIONED Q2H AND PRN. BED LOCKED AND SECURED. PLACED IN LOWEST POSSIBLE POSITION. WILL CONTINUE TO MONITOR.
--- NOTE | 2018-12-23 07:40 | NUR ---
BEADING MACHINE OPERATOR NOTE CHANGED TO SIMV MODE.MONITORING PATIENT.
[2018-12-23 08:50] LABS: ABG OXYGEN SATURATION 94.1 % (92.0-98.5); ABG PCO2 32.9 mmHg (35.0-45.0); ABG PO2 84.9 mmHg (75.0-100.0); AaDO2 162.5 mmHg; COHb 0.2 % (0.5-1.5); MetHb 0.4 % (0.0-1.5); O2Hb 93.5 % (94.0-97.0); PEEP,BG 5 cm H2O; SITE, ABG Left Brachial; VENT MODE, BG SIMV 4 / PS 15; VT, ABG 450 mL
[2018-12-23] MEDS: ASPIRIN 81 MG TAB.CHEW PO SCH (08:51)
[2018-12-23] MEDS: LEVETIRACETAM (500MG) 250 MG in IV NS 0.9% 100 ML IV SCH ×2 (08:51→21:05)
[2018-12-23] MEDS: CLOPIDOGREL BISULFATE 75 MG TABLET PO SCH (08:51)
[2018-12-23] MEDS: SERTRALINE HCL 25 MG TABLET PO SCH (08:51)
[2018-12-23] MEDS: ATORVASTATIN 40 MG TABLET PO SCH (08:51)
[2018-12-23] MEDS: NEXIUM 40 MG VIAL IV SCH ×2 (08:51→21:12)
[2018-12-23] MEDS: DOCUSATE SODIUM LIQ 100 MG/10 ML UDC NG SCH ×2 (08:51→17:26)
[2018-12-23] MEDS: CALCIUM CARBONATE (1250) 500 MG TABLET PO SCH (08:52)
[2018-12-23] MEDS: CARVEDILOL 12.5 MG TABLET PO SCH (08:52)
[2018-12-23] MEDS: LINAGLIPTIN 5 MG TABLET PO SCH (08:52)
[2018-12-23] MEDS: LOSARTAN POTASSIUM 50 MG TABLET PO SCH (08:52)
[2018-12-23] MEDS: BACLOFEN (10 MG) 10 MG TABLET PO SCH (08:53)
[2018-12-23] MEDS: hydrALAZINE HCL 50 MG TABLET PO SCH (08:53)
[2018-12-23] MEDS: POLYVINYL ALCOHOL 15 ML BOTTLE EACHEYE PRN (08:54)
[2018-12-23] MEDS: TRIAMCINOLONE OINT 0.1% 15 GM TUBE TP SCH ×2 (08:55→17:28)
[2018-12-23] MEDS: AZELASTINE NASAL SPRAY 30 ML BOTTLE NS SCH ×2 (08:55→17:28)
--- NOTE | 2018-12-23 10:34 | NUR ---
RT PT REC'D ORALLY INTUBATED VIA ETT 7.5 SECURED @ 24 CM AT THE LIP, ON [facility] VENT WITH NOTED SETTINGS. PT IS SEDATED. SX DONE PRN, NO RESP DISTRESS OR SOB NOTED. ALARMS ARE SET AND AUDIBLE. VENT PLUGGED INTO RED OUTLET. AMBU BAG BEDSIDE. WILL CONTINUE TO MONITOR. Addendum: 12/23/18 at 1035 by DIANE FIERRO RT Amended: Links added.
[2018-12-23] MEDS ORDERED: PHARMACY TO CHANGE PO MEDS TO GT/NG XX PRN (11:00)
[2018-12-23] MEDS ORDERED: LOSARTAN POTASSIUM 50 MG TABLET GT SCH (11:09)
[2018-12-23] MEDS ORDERED: DOXAZOSIN MESYLATE (1 MG) 1 MG TABLET GT SCH (11:09)
[2018-12-23] MEDS ORDERED: CARVEDILOL 12.5 MG TABLET GT SCH (11:09)
[2018-12-23] MEDS ORDERED: MAG HYDROX/AL HYDROX/SIMETH 30 ML UDC GT PRN (11:12)
[2018-12-23] MEDS: DILTIAZEM HCL 30 MG TABLET GT SCH ×2 (13:11→17:28)
[2018-12-23] MEDS: hydrALAZINE HCL 50 MG TABLET GT SCH ×2 (13:12→16:55)
[2018-12-23] MEDS: SEVELAMER CARBONATE 0.8 GM POWD.PACK GT SCH ×2 (13:12→17:26)
--- NOTE | 2018-12-23 16:30 | NUR ---
HIM ASSISTANT NOTE SEEN BY NEUROLOGIST,UPDATED ABOUT PATIENT CONDITION WITH NEUROLOGICAL STATUS.ONLY SLUGGISH MOVEMENT IN PUPIL. OFF FROM PROPOFOL SINCE 0800 AM.HE TOLD WILL BE F/U WITH MRI ONCE PATIENT STABLE TO DO IT.NOT FOLLOWING ANY COMMANDS.
[2018-12-23] MEDS: SERTRALINE HCL 25 MG TABLET GT SCH (17:26)
[2018-12-23] MEDS: GABAPENTIN 100 MG CAPSULE GT SCH (17:26)
[2018-12-23] MEDS: BACLOFEN (10 MG) 10 MG TABLET GT SCH (17:26)
[2018-12-23] MEDS: QUETIAPINE FUMARATE 25 MG TABLET GT SCH (17:26)
--- NOTE | 2018-12-23 19:22 | NUR ---
ROLL FORMING MACHINE SET UP OPERATOR NOTE PATIENT BP TRENDING LOW. MADE AWARE.GOT NEW ORDER FRO LEVOPHED.PM NURSE MADE AWARE.ENDORSED TO PM NURSE FOR PRABHJOT.NEUROLOGIST SPOKE TO THE FAMILY.
[2018-12-23] MEDS ORDERED: NOREPINEPHRINE 4 MG/4 ML AMPUL IV ONE (19:37)
[2018-12-23] MEDS: NOREPINEPHRINE 16 MG in IV D5W 500 ML IV PRN (19:48)
--- NOTE | 2018-12-23 20:00 | NUR ---
INSPECTOR SEMICONDUCTOR WAFER. INITIAL ASSESSMENT. RECEIVED THE PT REST ON THE BED. ORALLY INTUBATED, DOES NOT FOLLOW COMMANDS. BLOOD PRESSURE WAS 85/45. NEYMAR SHIFT RN CALLED THE [facility] AND GET THE LEVOPHED ORDER ETT 7.5,LIP 25,AC 14.TV 450.FIO2 50%,PEEP 5, SAT 98%. MAIL INSERTER SHOWING NSR. IV LT UPPER ARM PICC LINE. RT SUBCLAVIAN HD CATH. LT NARE NGT INTACT. HOB ELEVATED. COLE SOFT WRIST RESTRAINT CHECKED AND RELEASED. NO INJURY OR REDNESS NOTED. LEVOPHED 3MCG/MIN. WILL CONTINUE TO MONITOR VITALS.
[2018-12-23] MEDS: INSULIN GLARGINE, 100 UNIT/ML CARTRIDGE SQ SCH (23:46)
[2018-12-24] VITALS (105 sets, daily range): BP systolic 72–169; BP diastolic 45–96
--- NOTE | 2018-12-24 00:09 | NUR ---
PT REC'D ORALLY INTUBATED VIA ETT SZ 7.5 SECURED @ 24 CM AT THE LIP LINE. NO RESP DISTRESS OR SOB NOTED. PT ON [facility] VENT ON AC MODE. SX'D FOR THICK SMALL AMT OF PALE YELLOW SECRETIONS. ALARMS ARE SET AND AUDIBLE. VENT PLUGGED INTO RED OUTLET. AMBU BAG BEDSIDE. WILL CONTINUE TO MONITOR. Addendum: 12/24/18 at 0010 by CHRISTINA SUBRAMANIAN RT Amended: Links added.
[2018-12-24] MEDS: INSULIN REGULAR, HUMAN 100 UNIT/ML 3 ML VIAL SQ PRN ×4 (01:37→17:36)
[2018-12-24] MEDS: BLOOD SUGAR DIAGNOSTIC 1 EACH STRIP IN SCH ×4 (01:40→17:28)
--- NOTE | 2018-12-24 03:11 | NUR ---
TRAFFIC WORKFORCE REPRESENTATIVE. AM CARE, ORAL CARE, BED BATH GIVEN. LINEN CHANGED. REMAINING SAME VENT SETTING TOLERATED WELL. SAT 98%.O ACUTE DISTRESS NOTED.ARDIAC MONITOR SHOWING S TACH. LT NARE NGT LOW INTERMITTENT SUCTION.PT IS NPO. .LEVOPHED 2MCG/MIN, HOB ELEVATED. TURN AND REPOSITION Q2H. WILL CONTINUE TO MONITOR VITALS.
[2018-12-24 04:47] LABS: BASOPHILS % (AUTO) 0.3 % (0.0-2.0); EOSINOPHILS % (AUTO) 1.1 % (0.0-6.0); HEMATOCRIT 29 % (39-51); HEMOGLOBIN 9.7 g/dL (13.5-17.5); LYMPHOCYTES % (AUTO) 6.4 % (20.0-44.0); MEAN CORPUSCULAR HGB CONC 33 g/dl (31.0-36.0); MEAN CORPUSCULAR VOLUME 97 fL (80-96); MONOCYTES # (AUTO) 0.9 /CMM (0.1-1.30); MONOCYTES % (AUTO) 6.2 % (2.0-12.0); NEUTROPHILS # (AUTO) 13.1 /CMM (1.8-8.9); PLATELET COUNT (AUTO) 192 /CMM (150-450); RED BLOOD CELL COUNT(AUTO) 3.01 MIL/uL (4.5-6.0); WHITE BLOOD COUNT (AUTO) 15.2 K/uL (4.3-11.0)
[2018-12-24] MEDS: PIPERACILLIN /TAZOBACTAM 2.25 G in IV D5W 50 ML IV SCH ×3 (04:48→20:40)
[2018-12-24 04:51] LABS: CALCIUM, SERUM 9.6 mg/dL (8.5-10.1); CREATININE 6.8 mg/dL (0.6-1.3); MAGNESIUM 2.4 mg/dL (1.8-2.4); POTASSIUM 3.9 mmol/L (3.5-5.1)
[2018-12-24] MEDS: DILTIAZEM HCL 30 MG TABLET GT SCH ×2 (05:42)
--- NOTE | 2018-12-24 06:51 | NUR ---
RADIO OPERATOR GROUND. AROUND [id number] LEVOPHED OFF. WILL CONTINUE TO MONITOR
[2018-12-24 07:56] LABS: ABG BASE EXCESS -6.4 mmol/L; ABG OXYGEN SATURATION 96.4 % (92.0-98.5); ABG PCO2 31.8 mmHg (35.0-45.0); ABG PH 7.371 (7.350-7.450); ABG PO2 101.8 mmHg (75.0-100.0); AaDO2 146.8 mmHg; COHb 0.3 % (0.5-1.5); MetHb 0.2 % (0.0-1.5); O2Hb 95.9 % (94.0-97.0); SITE, ABG Left Brachial
[2018-12-24] MEDS: SEVELAMER CARBONATE 0.8 GM POWD.PACK GT SCH ×3 (08:35→17:32)
[2018-12-24] MEDS: ASPIRIN 81 MG TAB.CHEW GT SCH (08:35)
[2018-12-24] MEDS: SERTRALINE HCL 25 MG TABLET GT SCH ×2 (08:36→17:32)
[2018-12-24] MEDS: ATORVASTATIN 40 MG TABLET GT SCH (08:36)
[2018-12-24] MEDS: BACLOFEN (10 MG) 10 MG TABLET GT SCH ×2 (08:36→17:33)
[2018-12-24] MEDS: DOCUSATE SODIUM LIQ 100 MG/10 ML UDC NG SCH ×2 (08:36→17:32)
[2018-12-24] MEDS: LINAGLIPTIN 5 MG TABLET PO SCH (08:36)
[2018-12-24] MEDS: CLOPIDOGREL BISULFATE 75 MG TABLET GT SCH (08:36)
[2018-12-24] MEDS: LEVETIRACETAM (500MG) 250 MG in IV NS 0.9% 100 ML IV SCH (08:36)
[2018-12-24] MEDS: CALCIUM CARBONATE (1250) 500 MG TABLET GT SCH (08:36)
[2018-12-24] MEDS: NEXIUM 40 MG VIAL IV SCH ×2 (08:37→20:39)
[2018-12-24] MEDS: CYANOCOBALAMIN 1,000 MCG/ML VIAL IM SCH (08:37)
[2018-12-24] MEDS: METOCLOPRAMIDE HCL 10 MG/2 ML VIAL IV PRN (08:37)
[2018-12-24] MEDS: AZELASTINE NASAL SPRAY 30 ML BOTTLE NS SCH ×2 (08:39→17:33)
[2018-12-24] MEDS: POLYVINYL ALCOHOL 15 ML BOTTLE EACHEYE PRN (08:39)
[2018-12-24] MEDS: TRIAMCINOLONE OINT 0.1% 15 GM TUBE TP SCH ×2 (08:39→17:33)
--- NOTE | 2018-12-24 08:41 | NUR ---
SEARCH MARKETING COORDINATOR NOTE RCVD PT ABLE TO OPEN EYES SPONTANEOUSLY WHEN NAME CALLED, ST ON MONITOR, OFF SEDATION, BILATERAL SOFT WRIST RESTRAINTS IN PLACE, CIRCULATION CHECKS DONE, PULSES PRESENT, SKIN WARM TO TOUCH. TOLERATING ORDERED VENT SETTINGS, NG-TUBE TO LOW INTERMITTENT SUCTION, IV SITES C/D/I/PATENT, NO SIGN OF INFILTRATION/PHLEBITIS OBSERVED UPON FLUSHING. WILL CONTINUE TO MONITOR PT FOR SAFETY AND COMFORT. BED IN LOW AND LOCKED POSITION.
--- NOTE | 2018-12-24 11:02 | NUR ---
GUN NUMBERER NOTE DR. CHAKRABORTY CONTACTED REGARDING CHANGE IN PT'S NIHSS SCORE, WAITING FOR CALL BACK.
--- NOTE | 2018-12-24 12:17 | NUR ---
SYSTEM DISPATCHER NOTE PT TRANSPORTED TO RADIOLOGY DEPARTMENT FOR CT HEAD PER PROTOCOL, RN, RT AND TRANSPORT PERSONNEL AT BEDSIDE. PT BROUGHT BACK TO ROOM WITHOUT ANY INCIDENT.
[2018-12-24] MEDS: NOREPINEPHRINE 16 MG in IV D5W 500 ML IV PRN (15:24)
[2018-12-24] MEDS: QUETIAPINE FUMARATE 25 MG TABLET GT SCH (17:32)
[2018-12-24] MEDS: GABAPENTIN 100 MG CAPSULE GT SCH (17:32)
--- NOTE | 2018-12-24 18:39 | NUR ---
WAITER/WAITRESS CLUB NOTE PT'S CONDITION REMAINS UNCHANGED, SR ON MONITOR, TOLERATING ORDERED VENT SETTINGS, OFF RESTRAINTS, OCCASIONAL, NON-PURPOSEFUL BILATERAL UPPER EXTREMITY MOVEMENT OBSERVED DURING SHIFT, PT LETHARGIC, NOT FOLLOWING COMMANDS, LAST NIHSS SCORE 22 DR. CHAKRABORTY AWARE SINCE THIS AM. CT HEAD WITHOUT ANY NEW ACUTE FINDINGS. IV SITES REMAIN C/D/I/PATENT. NO S/O INFILTRATION/PHLEBITIS OBSERVED UPON FLUSHING. NG-TUBE TO LOW INTERMITTENT SUCTION WITH GASTRIC OUTPUT OBTAINED. PT'S CARE WILL BE ENDORSED TO PBX MECHANIC RN FOR CONTINUITY OF CARE, BED IN LOW AND LOCKED POSITION. PT'S FAMILY (SONS) UPDATED REGARDING PT'S CONDITION BY DR. CHAKRABORTY.
--- NOTE | 2018-12-24 20:00 | NUR ---
ENVIRONMENTAL SERVICES TECH - NOTES - RECEIVED PT, SR ON MONITOR, TOLERATING ORDERED VENT SETTINGS, OFF RESTRAINTS, OCCASIONAL, NON-PURPOSEFUL RIGHT UPPER EXTREMITY MOVEMENT OBSERVED, PT LETHARGIC, NOT FOLLOWING COMMANDS. IV SITES REMAIN C/D/I/PATENT. NO S/O INFILTRATION/PHLEBITIS OBSERVED UPON FLUSHING. NG-TUBE TO LOW INTERMITTENT SUCTION WITH GASTRIC OUTPUT GREEN OBTAINED. BED IN LOW AND LOCKED POSITION. WILL CONTINUE TO MONITOR
[2018-12-24] MEDS: LEVETIRACETAM SOL (5 ML) 100 MG/ML UDC NG SCH (20:39)
[2018-12-24] MEDS: INSULIN GLARGINE, 100 UNIT/ML CARTRIDGE SQ SCH (22:00)
[2018-12-25] VITALS (96 sets, daily range): BP systolic 71–206; BP diastolic 43–122
[2018-12-25] MEDS: BLOOD SUGAR DIAGNOSTIC 1 EACH STRIP IN SCH ×4 (00:15→17:43)
[2018-12-25] MEDS: INSULIN REGULAR, HUMAN 100 UNIT/ML 3 ML VIAL SQ PRN ×4 (00:18→17:43)
[2018-12-25] MEDS: PIPERACILLIN /TAZOBACTAM 2.25 G in IV D5W 50 ML IV SCH ×3 (04:12→20:37)
--- NOTE | 2018-12-25 04:28 | NUR ---
RT NOTE PT REC'D ORALLY INTUBATED VIA ETT SZ 7.5 AT 24 CM @ THE LIP LINE ON [facility] VENT ON AC MODE. NO RESP DISTRESS OR SOB NOTED. SX'D FOR SCANT AMT OF clear SECRETIONS. ALARMS ARE SET AND AUDIBLE. VENT PLUGGED INTO RED OUTLET. AMBU BAG BEDSIDE. WILL CONTINUE TO MONITOR. Addendum: 12/25/18 at 6688 by CHRISTINA SUBRAMANIAN RT Amended: Links added.
[2018-12-25 04:41] LABS: BASOPHILS % (AUTO) 0.3 % (0.0-2.0); EOSINOPHILS % (AUTO) 3.7 % (0.0-6.0); HEMATOCRIT 28 % (39-51); HEMOGLOBIN 9.3 g/dL (13.5-17.5); LYMPHOCYTES # (AUTO) 0.9 /CMM (0.8-4.8); MEAN CORPUSCULAR HGB CONC 34 g/dl (31.0-36.0); MEAN CORPUSCULAR VOLUME 98 fL (80-96); MONOCYTES # (AUTO) 1.2 /CMM (0.1-1.30); MONOCYTES % (AUTO) 9.6 % (2.0-12.0); NEUTROPHILS # (AUTO) 9.9 /CMM (1.8-8.9); NEUTROPHILS % (AUTO) 79.4 % (43.0-81.0); PLATELET COUNT (AUTO) 224 /CMM (150-450); RED BLOOD CELL COUNT(AUTO) 2.84 MIL/uL (4.5-6.0); WHITE BLOOD COUNT (AUTO) 12.5 K/uL (4.3-11.0)
[2018-12-25 04:54] LABS: MAGNESIUM 2.6 mg/dL (1.8-2.4); POTASSIUM 4.5 mmol/L (3.5-5.1)
[2018-12-25 05:13] LABS: CREATININE 9.2 mg/dL (0.6-1.3); PHOSPHORUS 11.2 mg/dL (2.5-4.9)
--- NOTE | 2018-12-25 07:10 | NUR ---
RN NOTES RECEIVED PT ON BED,LETHARGIC, INTUBATED, TOLERATING VENT SETTING WELL , ON SIMV MODE, DOES NOT FOLLOW COMMAND , OCCASIONAL, NON-PURPOSEFUL RIGHT UPPER EXTREMITY MOVEMENT OBSERVED,L UPPER ARM PICC LINE AND R AC IV SITES G 20 CLEAN , DRY AND INTACT , NG-TUBE TO LOW INTERMITTENT SUCTION , SR UP x3 ,CALL LIGHT WITHIN EASY REACH, BED IN LOW AND LOCKED POSITION. WILL CONTINUE TO MONITOR
--- NOTE | 2018-12-25 08:21 | NUR ---
RT PATIENT REC'D ORALLY INTUBATED ON MECH VENT OPAL WELL. SEDATION TURNED OFF AND PATIENT IS NOT RESPONSIVE. PER MD ORDER PATIENT PLACED ON SIMV SPONT BREATHING TRIAL. VENT ALARMS CHECKED + AUDIBLE. PATIENT SUCTIONED WITH SMALL AMT OF PALE SEMI-THICK SECRETIONS. B/S DIM CLEAR. AMBU BAG AT [facility]. ALL SAFETY MEASURES IN PLACE. CONT TO MONITOR CLOSELY. Addendum: 12/25/18 at 0822 by NIDA JUAREZ RT Amended: Links added.
[2018-12-25] MEDS: LINAGLIPTIN 5 MG TABLET PO SCH (08:37)
[2018-12-25] MEDS: SEVELAMER CARBONATE 0.8 GM POWD.PACK GT SCH ×3 (08:37→17:39)
[2018-12-25] MEDS: CALCIUM CARBONATE (1250) 500 MG TABLET GT SCH (08:37)
[2018-12-25] MEDS: SERTRALINE HCL 25 MG TABLET GT SCH ×2 (08:37→17:40)
[2018-12-25] MEDS: DOCUSATE SODIUM LIQ 100 MG/10 ML UDC NG SCH ×2 (08:37→17:39)
[2018-12-25] MEDS: BACLOFEN (10 MG) 10 MG TABLET GT SCH (08:37)
[2018-12-25] MEDS: ASPIRIN 81 MG TAB.CHEW GT SCH (08:37)
[2018-12-25] MEDS: ATORVASTATIN 40 MG TABLET GT SCH (08:37)
[2018-12-25] MEDS: CLOPIDOGREL BISULFATE 75 MG TABLET GT SCH (08:37)
[2018-12-25] MEDS: LEVETIRACETAM SOL (5 ML) 100 MG/ML UDC NG SCH ×2 (08:37→20:36)
[2018-12-25] MEDS: TRIAMCINOLONE OINT 0.1% 15 GM TUBE TP SCH ×2 (08:39→17:32)
[2018-12-25] MEDS: NEXIUM 40 MG VIAL IV SCH ×2 (08:39→20:37)
[2018-12-25] MEDS: AZELASTINE NASAL SPRAY 30 ML BOTTLE NS SCH ×2 (08:40→17:32)
[2018-12-25 09:03] LABS: ABG BASE EXCESS -5.5 mmol/L; ABG OXYGEN SATURATION 97.5 % (92.0-98.5); ABG PCO2 38.6 mmHg (35.0-45.0); ABG PH 7.331 (7.350-7.450); ABG PO2 136.4 mmHg (75.0-100.0); AaDO2 104.4 mmHg; COHb 0.3 % (0.5-1.5); MetHb 0.4 % (0.0-1.5); O2Hb 96.8 % (94.0-97.0); SITE, ABG Left Brachial
--- NOTE | 2018-12-25 10:00 | NUR ---
RN NOTES DR MONTEIRO NOTIFED REGARDING ABG RESULTS . CONTINUE TO MONITOR .
--- NOTE | 2018-12-25 12:00 | NUR ---
RN NOTES FAMILY REQUESTING TO TALK TO DR WHITE . DR WHITE NOTIFED .
[2018-12-25] MEDS: NOREPINEPHRINE 16 MG in IV D5W 500 ML IV PRN (17:39)
--- NOTE | 2018-12-25 17:39 | NUR ---
RN NOTES PT RECEIVING HD AT THIS TIME , LEVO RESTARTED AT 2MCG/MIN DUE TO LOW BP . CONTINUE TO MONITOR .
--- NOTE | 2018-12-25 18:35 | NUR ---
RN NOTES PT STILL RECEIVING HD , PT STILL DRAWZY , NONVERBAL , NOT FOLLOWING COMMAND, SUPPORTIVE FAMILY AT THE BEDSIDE, SR UP X3, CALL LIGHT WITHIN EASY REACH, WILL ENDOSE TO VINEYARD WORKER NURSE FOR CONTINUITY OF CARE .
--- NOTE | 2018-12-25 19:30 | NUR ---
RN NOTES RECEIVED PT IS OBTUNDED DIALYSIS AT BEDSIDE. PT ETT AND VENT SETTING ON SIMV MODE TOLERATED WELL. AFEBRILE. NO SEDATION. TURNED OFF LEVOPHED SBP 155. NSR ON TELE MONITOR. DIALYSIS DONE @ THIS TIME WITH NO OUT PUT PER DIALYSIS NURSE. KEPT PT CLEAN AND COMFORTABLE IN BED. WILL CONTINUE TO MONITOR.
--- NOTE | 2018-12-25 19:40 | NUR ---
RN NOTES HD DONE AT THIS TIME WITH ZERO OUTPUT.
[2018-12-25] MEDS: MORPHINE SULFATE INJ 2 MG/ML DISP.SYRIN IV PRN (20:30)
--- NOTE | 2018-12-25 20:30 | NUR ---
RN NOTES NOTED PATIENT PILOT NICOLAS CAME OUT, NO RESPIRATORY DISTRESS, PT EYES IS OPEN BUT NOT FOLLOWING COMMAND, PT MOVES HIS RIGHT ARM MORE OFTEN. WRIST RESTRAINT IN PLACED. DR. PRUITT MADE AWARE, RT AWARE AT BEDSIDE AT THIS TIME WAITING FOR MD TO ORDER. AND TO COME OUT TO ASSESS THE PATIENT.
--- NOTE | 2018-12-25 20:32 | NUR ---
I WAS INFORMED BY THE RN THAT THE PT BIT OFF THE ETT SLIP TENDER BALLOON. PT IS ON SIMV MODE NO DISTRESS, O2 SAT 100%. I CAN HEAR BIG LEAK AND VENT ALARMING. PT STILL PULLING GOOD VOLUMES. CALLED THE ER MD TO REPLACE THE ETT. Addendum: 12/25/18 at 2304 by ANTHONY PANTOJA RT Amended: Links added.
--- NOTE | 2018-12-25 20:35 | NUR ---
RN NOTES 20:30 PM - CHARGE NURSE CALLED ED, PER DRAW PRESS OPERATOR MD SLUMMED WITH PT AT THIS TIME. CALLED CUT OUT MACHINE OPERATOR MD DR. RPUITT AND INFORMED THAT PATIENT ETT CASE MANAGEMENT ASSOCIATE BALLOON CAME OUT. PER MD "I DON'T DEAL WITH ETT". 20:40 PM - CALLED CUT OUT MACHINE OPERATOR TANK ASSEMBLER 20:50 PM - DR. ZHOU CALL BACK INFORMED THAT PT ETT CASE MANAGEMENT ASSOCIATE BALLOON CAME OUT. PER MD TO CALL ER MD TO PLACED THE TUBE, INFORMED THAT WE CALLED HOW MANY TIMES IN ER AND PT IS SLUMMED WITH THE PATIENT.PER DR. PERSON TO WAIT FOR ER MD CAUSE IT TAKES HIM 45 MINS. TO AN HOUR TO COME BY. 21:00 PM CALLED HELP DESK ASSISTANT TUYET AND INFORMED ABOUT THE SITUATIONS PER TUYET TO CALL DR. PERSON AGAIN AND SAID THAT SOMEONE NEEDS TO DO IT. IF NOT TO CALL DR. CAMPBELL. 21:10 PM - CALLED DR. ZHOU FOR THE SECOND TIME AND TELL WANT HELP DESK ASSISTANT HAD BEEN TOLD. ASKED MD TO SPOKE WITH ER MD PERSONALLY VIA PHONE TO CONSULT. PER ONCALL TANK ASSEMBLER, ER MD WILL COME IN 30 MINUTES TO DO THE TUBE. WAITING FOR MD TO COME.
[2018-12-25] MEDS: CLONIDINE HCL 0.1 MG TABLET GT PRN (20:36)
--- NOTE | 2018-12-25 21:35 | NUR ---
RN NOTES CALLED GLAZE SPRAYER DINING ROOM HOST/HOSTESS SPOKE WITH DR. ZHOU INFORMED REGARDING PATIENT ETT ASSOCIATE PROFESSOR PLANT PATHOLOGY AMRIA ISABEL CAME OUT. PER MD HE SPOKE TO ER MD AND WILL COME IN 30 MINUTES TO CHANGED THE TUBE.
[2018-12-25] MEDS: hydrALAZINE HCL IV 20 MG VIAL IV PRN (21:43)
[2018-12-25] MEDS ORDERED: ETOMIDATE 2 MG/ML VIAL IV ONE ×2 (22:00)
--- NOTE | 2018-12-25 22:09 | NUR ---
DR JURADO ( ). CAME UP TO CHANGE THE ETT. INSERTED 7.5 ETT SECURED AT 25CM AT THE LIP. BILAT BREATH SOUND. GOOD COLOR CHANGE ON THE CO2 DETECTOR. PT PLACED BACK ON THE VENT SIMV. WILL CONTINUE TO MONITOR.
--- NOTE | 2018-12-25 22:30 | NUR ---
RN NOTES 21 45 PM - ER MD, DR. JURADO CAME AND ASSESSED THE PATIENT. 21:50 PM - FIRST ETOMIDATE 10 MG GIVEN BY CHARGE NURSE. 22:00 PM - SECOND ETOMIDATE 10 MG ADMINISTERED BY CHARGE NURSE MD ORDER. 22:04 PM - ETTUBE CHANGED WITH THE SAME VENT SETTING AND TOLERATED WELL BY, DONE BY DR. CHANDLER PT TOELRATED IT WELL NO RESPIRATORY DISTRESS.
[2018-12-25] MEDS: INSULIN GLARGINE, 100 UNIT/ML CARTRIDGE SQ SCH (22:31)
[2018-12-25] MEDS: HYDROCODONE/APAP 5/325MG 1 EACH TABLET GT PRN (23:32)
[2018-12-26] VITALS (66 sets, daily range): BP systolic 80–197; BP diastolic 22–125
[2018-12-26] MEDS: LORAZEPAM INJ 2 MG/ML VIAL IV PRN (00:22)
[2018-12-26] MEDS: BLOOD SUGAR DIAGNOSTIC 1 EACH STRIP IN SCH ×5 (00:26→23:15)
--- NOTE | 2018-12-26 00:26 | NUR ---
RN NOTES TACHYPNEA NOTED RESP > 40 , ATIVAN PRN GIVEN FOR MUSCLE RELAXANT. PT STILL ON SIMV MODE , NO ACUTE RESPIRATORY DISTRESS. BS CHECKED 193 MG/DL WILL GIVE INSULIN ORDERED.
[2018-12-26] MEDS: INSULIN REGULAR, HUMAN 100 UNIT/ML 3 ML VIAL SQ PRN ×5 (00:31→23:18)
[2018-12-26] MEDS: VANCOMYCIN 500 MG in IV D5W 100 ML IV PRN (03:05)
--- NOTE | 2018-12-26 03:30 | NUR ---
RN NOTES LEVOPHED STARTED @ 1 MCG/KG/MIN BP 86/52 HR 76 TITRATED PROTOCOL ORDER
--- NOTE | 2018-12-26 04:30 | NUR ---
RN NOTES STOP LEVOPHED SBP WENT UP TO 170-190'S WILL WAIT FOR AWHILE TO RECHECKED BP MONITORED CLOSELY AND WILL GIVE MEDICINE ORDERED
[2018-12-26 05:09] LABS: BASOPHILS # (AUTO) 0.1 /CMM (0.0-0.2); BASOPHILS % (AUTO) 0.9 % (0.0-2.0); EOSINOPHILS % (AUTO) 5.5 % (0.0-6.0); HEMATOCRIT 26 % (39-51); HEMOGLOBIN 8.9 g/dL (13.5-17.5); LYMPHOCYTES # (AUTO) 0.8 /CMM (0.8-4.8); LYMPHOCYTES % (AUTO) 9.5 % (20.0-44.0); MEAN CORPUSCULAR HGB CONC 34 g/dl (31.0-36.0); MEAN CORPUSCULAR VOLUME 97 fL (80-96); MONOCYTES # (AUTO) 0.8 /CMM (0.1-1.30); MONOCYTES % (AUTO) 9.9 % (2.0-12.0); NEUTROPHILS # (AUTO) 6.1 /CMM (1.8-8.9); NEUTROPHILS % (AUTO) 74.2 % (43.0-81.0); PLATELET COUNT (AUTO) 191 /CMM (150-450); RED BLOOD CELL COUNT(AUTO) 2.66 MIL/uL (4.5-6.0); WHITE BLOOD COUNT (AUTO) 8.2 K/uL (4.3-11.0)
[2018-12-26 05:21] LABS: CALCIUM, SERUM 9.5 mg/dL (8.5-10.1); CREATININE 6.8 mg/dL (0.6-1.3); MAGNESIUM 2.3 mg/dL (1.8-2.4); POTASSIUM 3.7 mmol/L (3.5-5.1)
[2018-12-26] MEDS: PIPERACILLIN /TAZOBACTAM 2.25 G in IV D5W 50 ML IV SCH ×3 (05:28→21:49)
[2018-12-26] MEDS: hydrALAZINE HCL IV 20 MG VIAL IV PRN ×2 (06:26→18:08)
--- NOTE | 2018-12-26 08:26 | NUR ---
INITIAL CHECK EXAMINER NOTE RCVD PT STILL UNRESPONSIVE, OPENS EYES SPONTANEOUSLY BUT DOES NOT TRACK, NOT FOLLOWING COMMANDS. ST ON MONITOR, TOLERATING SIMV MODE THROUGH THE NIGHT CPAP AT THIS TIME TOLERATING WELL. LEFT WRIST RESTRAINT DISCONTINUED AND RIGHT SIDE REMAINS IN PLACE. CIRCULATION CHECK DONE. NG-TUBE ADVANCED 5 CM PER RADIOLOGIST RECOMMENDATION. WHITLEY PICC C/D/I/PATENT, NO S/O INFILTRATION/PHLEBITIS OBSERVED UPON FLUSHING. WILL CONTINUE TO MONITOR PT FOR SAFETY AND COMFORT. BED IN LOW AND LOCKED POSITION, CALL LIGHT WITHIN REACH, HEAD OF BED ELEVATED.
[2018-12-26] MEDS: SEVELAMER CARBONATE 0.8 GM POWD.PACK GT SCH ×3 (08:44→17:36)
[2018-12-26] MEDS: LINAGLIPTIN 5 MG TABLET PO SCH (08:50)
[2018-12-26] MEDS: ATORVASTATIN 40 MG TABLET GT SCH (08:50)
[2018-12-26] MEDS: SERTRALINE HCL 25 MG TABLET GT SCH ×2 (08:50→17:36)
[2018-12-26] MEDS: DOCUSATE SODIUM LIQ 100 MG/10 ML UDC NG SCH ×2 (08:50→17:36)
[2018-12-26] MEDS: ASPIRIN 81 MG TAB.CHEW GT SCH (08:50)
[2018-12-26] MEDS: CLOPIDOGREL BISULFATE 75 MG TABLET GT SCH (08:50)
[2018-12-26] MEDS: CALCIUM CARBONATE (1250) 500 MG TABLET GT SCH (08:50)
[2018-12-26] MEDS: NEXIUM 40 MG VIAL IV SCH ×2 (08:51→21:49)
[2018-12-26] MEDS: TRIAMCINOLONE OINT 0.1% 15 GM TUBE TP SCH ×2 (08:52→17:56)
[2018-12-26] MEDS: AZELASTINE NASAL SPRAY 30 ML BOTTLE NS SCH ×2 (08:52→17:57)
[2018-12-26] MEDS: LEVETIRACETAM (500MG) 1,000 MG in IV NS 0.9% 100 ML IV SCH ×2 (09:29→20:31)
[2018-12-26 10:00] LABS: ABG BASE EXCESS 1.5 mmol/L; ABG OXYGEN SATURATION 96.1 % (92.0-98.5); ABG PCO2 32.5 mmHg (35.0-45.0); ABG PH 7.494 (7.350-7.450); ABG PO2 92.4 mmHg (75.0-100.0); AaDO2 155.4 mmHg; COHb 0.3 % (0.5-1.5); MetHb 0.6 % (0.0-1.5); O2Hb 95.2 % (94.0-97.0); PEEP,BG 5 cm H2O; SITE, ABG Right Radial; VENT MODE, BG CPAP PS 15
[2018-12-26] MEDS ORDERED: FEE EMEERGENCY 1 MIN EA MC ONE (10:46)
[2018-12-26] MEDS ORDERED: ETOMIDATE 2 MG/ML VIAL IV ONE (10:46)
[2018-12-26] MEDS: HYDROCODONE/APAP 5/325MG 1 EACH TABLET GT PRN ×2 (13:04→17:36)
--- NOTE | 2018-12-26 15:02 | NUR ---
MANAGER STUDENT SERVICES NOTE PT TRANSPORTED TO FOR MRI BRAIN, PT TOLERATED TRANSPORT WELL, VITAL SIGNS REMAINED STABLE DURING AND AFTER TRANSPORT.
--- NOTE | 2018-12-26 15:55 | NUR ---
GRILL ATTENDANT NOTE WHILE ON BREAK RADIOLOGIST CALLED WITH MRI BRAIN RESULTS 1. Limited evaluation due to motion. 2. Acute/recent left thalamic lacunar infarct. 3. Chronic left thalamic, and pontine lacunar infarcts seen. 4. Mild volume loss, with mild to moderate chronic small vessel ischemic changes. VINNIE WALTON CONTACTED DR. JUAREZ AND JA ARRIOLA THE LATTER ACKNOWLEDGED RESULTS AND WILL DISCUSS FURTHER CARE WITH PT'S FAMILY. WILL CONTINUE TO MONITOR PT FOR SAFETY AND COMFORT.
[2018-12-26] MEDS: Z GUARD REMEDY 2 OZ OINT TP PRN (17:56)
--- NOTE | 2018-12-26 18:30 | NUR ---
RT END OF THE SHIFT REPORT, PT. 58 Y OLD MALE REC. @0700 AM ORALLY INTUBATED ETT #7.5 @ 24CM LIP LINE. T/O MORNING ON VENT WITH NOTED SETTINGS, @ 1010 PLACED O T-TUBE COOL AEROSOL 40% 10L.MIN O2 PER DR. MONTEIRO ORDER. ALARMS ARE SET AND FUNCTIONAL, NO DISTRESS NOTED T/O SHIFT. PT. SUX'D FOR MINIMAL WHITE LOSE SECRETIONS, BILATERALLY RALES B/S AND EQUAL CHEST RISE NOTED. PT. REMAIN STABLE AND AMBU BAG REMAIN AT THE BEDSIDE, REPORT WILL PASS TO PM SHIFT. Addendum: 12/26/18 at 1832 by KATHERINE ESPINAL RT Amended: Links added.
--- NOTE | 2018-12-26 18:41 | NUR ---
COUNTER FORMER NOTE PT REMAINS UNRESPONSIVE, ABLE TO OPEN EYES SPONTANEOUSLY BUT NOT FOLLOWING COMMANDS, RESTRAINT TO RIGHT UPPER ARM IN PLACE, CIRCULATION CHECK DONE. ST ON MONITOR WITH OCCASIONAL PVC's, ON T-PIECE WITH COOL AEROSOL TOLERATING WELL, NG-TUBE PLACEMENT VERIFIED BY ASPIRATION OF GASTRIC CONTENTS. WHITLEY PICC C/D/I/PATENT, NO S/O INFILTRATION/PHLEBITIS OBSERVED UPON FLUSHING. PT'S CARE WILL BE ENDORSED TO BUTTER PRINTER RN FOR CONTINUITY OF CARE, BED IN LOW AND LOCKED POSITION, HEAD OF BED ELEVATED. PT'S FAMILY ( AND SON, PATRICIA) UPDATED BY DR. JUAREZ AND ZEINAB RIVERA, JA ABOUT THE FINDINGS ON MRI BRAIN.
--- NOTE | 2018-12-26 20:51 | NUR ---
RECEIVED PT INTUBATED ON COOL AEROSOL 40%. SX'D FOR MOD AMT OF SML THICK WHITE SECRETIONS. WILL CONTINUE TO MONITOR. Addendum: 12/26/18 at 2056 by ANTHONY PANTOJA RT Amended: Links added.
[2018-12-26] MEDS: NEPRO 1,000 ML BOTTLE GT PRN (21:00)
[2018-12-26] MEDS: INSULIN GLARGINE, 100 UNIT/ML CARTRIDGE SQ SCH (23:16)
[2018-12-27] VITALS (49 sets, daily range): BP systolic 64–195; BP diastolic 43–138
[2018-12-27] MEDS: LORAZEPAM INJ 2 MG/ML VIAL IV PRN ×3 (01:06→23:13)
[2018-12-27] MEDS: hydrALAZINE HCL IV 20 MG VIAL IV PRN ×3 (01:07→18:33)
[2018-12-27 04:45] LABS: BASOPHILS # (AUTO) 0.1 /CMM (0.0-0.2); BASOPHILS % (AUTO) 0.9 % (0.0-2.0); EOSINOPHILS % (AUTO) 6.1 % (0.0-6.0); HEMATOCRIT 30 % (39-51); HEMOGLOBIN 10.1 g/dL (13.5-17.5); LYMPHOCYTES # (AUTO) 0.7 /CMM (0.8-4.8); LYMPHOCYTES % (AUTO) 6.5 % (20.0-44.0); MEAN CORPUSCULAR HGB CONC 34 g/dl (31.0-36.0); MEAN CORPUSCULAR VOLUME 97 fL (80-96); MONOCYTES # (AUTO) 1.1 /CMM (0.1-1.30); MONOCYTES % (AUTO) 9.7 % (2.0-12.0); NEUTROPHILS # (AUTO) 8.6 /CMM (1.8-8.9); NEUTROPHILS % (AUTO) 76.8 % (43.0-81.0); PLATELET COUNT (AUTO) 228 /CMM (150-450); RED BLOOD CELL COUNT(AUTO) 3.07 MIL/uL (4.5-6.0); WHITE BLOOD COUNT (AUTO) 11.2 K/uL (4.3-11.0)
[2018-12-27 04:52] LABS: ALBUMIN 2.1 g/dL (3.4-5.0); BILIRUBIN,TOTAL 1.1 mg/dL (0.2-1.0); MAGNESIUM 2.4 mg/dL (1.8-2.4); TOTAL PROTEIN, SERUM 7.3 g/dL (6.4-8.2)
[2018-12-27 05:17] LABS: CREATININE 8.8 mg/dL (0.6-1.3); PHOSPHORUS 8.4 mg/dL (2.5-4.9)
[2018-12-27] MEDS: BLOOD SUGAR DIAGNOSTIC 1 EACH STRIP IN SCH ×4 (05:27→23:05)
[2018-12-27] MEDS: PIPERACILLIN /TAZOBACTAM 2.25 G in IV D5W 50 ML IV SCH ×3 (05:27→21:53)
--- NOTE | 2018-12-27 08:00 | NUR ---
ICU/RN AM SHIFT INITIAL NOTES RECEIVED PT AWAKE IN BED, PT OPEN EYES, RESPONSIVE TO NOISE, BUT NOT TO TOUCH OR HIS NAME. NOTED RESTLESS. NO ACUTE RESPIRATORY DISTRESS NOTED. ON COOL AEROSOL WITH 40% FIO2, SATURATING @ 97%, RESPIRATIONS EVEN AND UNLABORED, NOTED RHONCHI LUNG SOUNDS, SUCTIONED FOR AIRWAY CLEARANCE. ETT IN PLACED WITH LIP AT 7.5, ON TELE MONITORING WITH SINUS TACHY, HR 111. NG-TUBE ON LEFT NARE IN PLACED WITH ON GOING TUBE FEEDING OF NEPHRO @ 25CC/HR, NO GASTRIC RESIDUAL, FLUSHED. BILATERAL SOFT WRISTS RESTRAINTS IN PLACED, RELEASED TO CHECKED FOR CIRCULATION AND COMFORT THEN PLACED BACK. PICC LINE POSITIVE OF BLOOD RETURN, FLUSHED. SCHEDULED AM MEDS TO BE GIVEN. CL WITHIN REACHED AND SAFETY MAINTAINED. ON GOING MONITORING.
--- NOTE | 2018-12-27 08:00 | NUR ---
ICU/RN LOG IN ERROR - MEDICATION SCHEDULED AM MEDS WAS ADMINISTERED BY MYSELF AND NOT KIERSTEN DIAZ RN (PM NURSE). MISTAKENLY SCANNED UNDER HIS NAME. PHARMACY ([facility]) MADE AWARE.
[2018-12-27 08:39] LABS: ABG BASE EXCESS -2.3 mmol/L; ABG OXYGEN SATURATION 96.5 % (92.0-98.5); ABG PCO2 39.3 mmHg (35.0-45.0); ABG PH 7.377 (7.350-7.450); ABG PO2 106.2 mmHg (75.0-100.0); AaDO2 133.8 mmHg; COHb 0.3 % (0.5-1.5); MetHb 0.3 % (0.0-1.5); O2Hb 95.9 % (94.0-97.0); SITE, ABG Right Radial; VENT MODE, BG C/A 40%
[2018-12-27] MEDS: SEVELAMER CARBONATE 0.8 GM POWD.PACK GT SCH ×3 (09:00→17:05)
[2018-12-27] MEDS: LEVETIRACETAM (500MG) 1,000 MG in IV NS 0.9% 100 ML IV SCH ×2 (09:00→20:44)
[2018-12-27] MEDS: SERTRALINE HCL 25 MG TABLET GT SCH ×2 (09:01→17:00)
[2018-12-27] MEDS: LINAGLIPTIN 5 MG TABLET PO SCH (09:01)
[2018-12-27] MEDS: ATORVASTATIN 40 MG TABLET GT SCH (09:01)
[2018-12-27] MEDS: ASPIRIN 81 MG TAB.CHEW GT SCH (09:01)
[2018-12-27] MEDS: CALCIUM CARBONATE (1250) 500 MG TABLET GT SCH (09:01)
[2018-12-27] MEDS: DOCUSATE SODIUM LIQ 100 MG/10 ML UDC NG SCH ×2 (09:01→17:00)
[2018-12-27] MEDS: CLOPIDOGREL BISULFATE 75 MG TABLET GT SCH (09:01)
[2018-12-27] MEDS: NEXIUM 40 MG VIAL IV SCH ×2 (09:02→20:45)
[2018-12-27] MEDS: AZELASTINE NASAL SPRAY 30 ML BOTTLE NS SCH ×2 (09:03→17:00)
[2018-12-27] MEDS: TRIAMCINOLONE OINT 0.1% 15 GM TUBE TP SCH ×2 (09:03→17:01)
--- NOTE | 2018-12-27 10:30 | NUR ---
ICU/RN DECREASED IN BP PATIENT GIVEN HYDRALAZINE PRN FOR BP 196/123, HR 113 @ 0953. BP CHECKED NOW @ 143/91, HR 112.
[2018-12-27] MEDS: ERGOCALCIFEROL (VITAMIN D 2) 50,000 UNIT CAPSULE GT SCH (11:37)
[2018-12-27] MEDS: INSULIN REGULAR, HUMAN 100 UNIT/ML 3 ML VIAL SQ PRN ×3 (11:48→23:06)
--- NOTE | 2018-12-27 12:00 | NUR ---
ICU/RN NOON ROUNDS PT SUCTIONED AND REPOSITIONED. NO CHANGE OF CONDITION.
--- NOTE | 2018-12-27 15:00 | NUR ---
ICU/RN HD STARTED DIALYSIS TREATMENT STARTED, BP 170/100, H5 109. PRN LEVOPHED INITIATED @ 2MCG/MIN FOR BP SUPPORT. ON GOING MONITORING.
--- NOTE | 2018-12-27 17:30 | NUR ---
ICU/RN HD - COMPLETED REMOVED 1L OF FLUID WITH LEVO SUPPORT, LAST BP 181/116, HR 127. TOLERATED TREATMENT.
--- NOTE | 2018-12-27 18:33 | NUR ---
ICU/RN HIGH BP PT GIVEN PRN HYDRALAZINE FOR BP 211/113, HR 122. ON GOING MONITORING. Addendum: 12/27/18 at 1906 by ISAMAR TINEO RN ADDENDUM: BP DECREASED, 185/107, HR 132.
--- NOTE | 2018-12-27 19:03 | NUR ---
ICU/RN AM SHIFT END NOTES ALL NEEDS MET, NO ACUTE CHANGE OF CONDITION NOTED DURING THE SHIFT, EXCEPT FOR OCCASIONAL INCREASED OF BLOOD PRESSURE. PRN HYDRALAZINE GIVEN. PT ENDORSED TO PM NURSE TO CONTINUE CARE. CL WITHIN REACHED AND SAFETY MAINTAINED.
[2018-12-27] MEDS: ACETAMINOPHEN 325 MG TABLET PO PRN (19:51)
--- NOTE | 2018-12-27 20:25 | NUR ---
RT RECEIVED PT INTUBATED ON COOL AEROSOL 40%. SX'D FOR MOD AMT OF THICK WHITE SECRETIONS. WILL CONTINUE TO MONITOR. Addendum: 12/27/18 at 2025 by DIANE FIERRO RT Amended: Links added.
[2018-12-27] MEDS: INSULIN GLARGINE, 100 UNIT/ML CARTRIDGE SQ SCH (23:05)
[2018-12-28] VITALS (46 sets, daily range): BP systolic 69–197; BP diastolic 46–119
[2018-12-28] MEDS: hydrALAZINE HCL IV 20 MG VIAL IV PRN ×3 (03:29→22:01)
[2018-12-28] MEDS: LORAZEPAM INJ 2 MG/ML VIAL IV PRN ×3 (03:30→12:57)
[2018-12-28 04:48] LABS: BASOPHILS # (AUTO) 0.1 /CMM (0.0-0.2); BASOPHILS % (AUTO) 0.6 % (0.0-2.0); EOSINOPHILS % (AUTO) 3.2 % (0.0-6.0); HEMATOCRIT 31 % (39-51); LYMPHOCYTES # (AUTO) 0.6 /CMM (0.8-4.8); LYMPHOCYTES % (AUTO) 4.3 % (20.0-44.0); MEAN CORPUSCULAR HGB CONC 32 g/dl (31.0-36.0); MEAN CORPUSCULAR VOLUME 98 fL (80-96); MONOCYTES # (AUTO) 0.8 /CMM (0.1-1.30); MONOCYTES % (AUTO) 5.4 % (2.0-12.0); NEUTROPHILS # (AUTO) 12.4 /CMM (1.8-8.9); NEUTROPHILS % (AUTO) 86.5 % (43.0-81.0); PLATELET COUNT (AUTO) 259 /CMM (150-450); RED BLOOD CELL COUNT(AUTO) 3.15 MIL/uL (4.5-6.0); WHITE BLOOD COUNT (AUTO) 14.3 K/uL (4.3-11.0)
[2018-12-28] MEDS: INSULIN REGULAR, HUMAN 100 UNIT/ML 3 ML VIAL SQ PRN ×3 (05:08→17:36)
[2018-12-28] MEDS: PIPERACILLIN /TAZOBACTAM 2.25 G in IV D5W 50 ML IV SCH ×3 (05:11→22:01)
[2018-12-28 05:30] LABS: BILIRUBIN,TOTAL 0.7 mg/dL (0.2-1.0); CALCIUM, SERUM 9.5 mg/dL (8.5-10.1); CREATININE 6.5 mg/dL (0.6-1.3); MAGNESIUM 2.5 mg/dL (1.8-2.4); PHOSPHORUS 4.3 mg/dL (2.5-4.9); POTASSIUM 4.2 mmol/L (3.5-5.1); TOTAL PROTEIN, SERUM 7.3 g/dL (6.4-8.2)
[2018-12-28] MEDS: BLOOD SUGAR DIAGNOSTIC 1 EACH STRIP IN SCH ×3 (06:04→17:28)
--- NOTE | 2018-12-28 06:52 | NUR ---
PT REMAINS IN NO ACUTE DISTRESS IN BED. PT DID NOT HAVE ANY SIGNIFICANT CHANGE IN CONDITION DURING SHIFT. ALL NEEDS MET, ALL ORDERS CARRIED OUT. PT TOLERATED COOL AEROSOL WELL. WILL ENDORSE CARE TO AM RN FOR CONTINUITY OF CARE.
--- NOTE | 2018-12-28 08:00 | NUR ---
CEMENT PATCHER NOTE RECEIVED PATIENT IN BED WITH ETT TO COOLER AEROSOL STILL OBTUNDED ,NOT RESPONSE RO TACITLY STIMULI, LT NARE NG TUBE WITH NEPRO AT 30 ML PER HOUR , NO RESIDUAL NOTED PLACEMENT CHECKED , RT CW HD IN PLACE , WHITLEY TLC IN PLACE, WILL CONT TO MONITOR CLOSELY
[2018-12-28] MEDS: DOCUSATE SODIUM LIQ 100 MG/10 ML UDC NG SCH ×2 (08:39→16:06)
[2018-12-28] MEDS: SEVELAMER CARBONATE 0.8 GM POWD.PACK GT SCH ×3 (08:39→17:28)
[2018-12-28] MEDS: CALCIUM CARBONATE (1250) 500 MG TABLET GT SCH (08:41)
[2018-12-28] MEDS: ASPIRIN 81 MG TAB.CHEW GT SCH (08:42)
[2018-12-28] MEDS: ATORVASTATIN 40 MG TABLET GT SCH (08:46)
[2018-12-28] MEDS: CLOPIDOGREL BISULFATE 75 MG TABLET GT SCH (08:46)
[2018-12-28 08:47] LABS: ABG BASE EXCESS 1.1 mmol/L; ABG OXYGEN SATURATION 94.6 % (92.0-98.5); ABG PCO2 37.6 mmHg (35.0-45.0); ABG PH 7.442 (7.350-7.450); ABG PO2 81.7 mmHg (75.0-100.0); AaDO2 160.3 mmHg; COHb 0.3 % (0.5-1.5); MetHb 0.4 % (0.0-1.5); O2Hb 93.9 % (94.0-97.0); SITE, ABG Left Brachial; VENT MODE, BG CA
[2018-12-28] MEDS: TRIAMCINOLONE OINT 0.1% 15 GM TUBE TP SCH ×2 (08:47→16:08)
[2018-12-28] MEDS: LINAGLIPTIN 5 MG TABLET PO SCH (08:47)
[2018-12-28] MEDS: AZELASTINE NASAL SPRAY 30 ML BOTTLE NS SCH ×2 (08:48→16:07)
[2018-12-28] MEDS: LEVETIRACETAM (500MG) 1,000 MG in IV NS 0.9% 100 ML IV SCH ×2 (08:54→21:19)
--- NOTE | 2018-12-28 09:00 | NUR ---
LICENSED ELECTRICIAN NOTE BO199/113 VERY AGITATED ATIVAN IVP GIVEN ORDERED ,WILL CONT TO MONITOR CLOSELY
[2018-12-28] MEDS: NEXIUM 40 MG VIAL IV SCH ×2 (09:01→21:19)
[2018-12-28] MEDS: CLONIDINE HCL 0.1MG/24H PTWK 1 EA PATCH TD SCH (10:03)
--- NOTE | 2018-12-28 12:00 | NUR ---
FURNACE UNLOADER NOTE SPOKE WITH DR SILVERIO THAT HR 126 BP 175/89 STAT TO MONITOR CLOSELY NO NEW ORDER GIVEN AT THIS TIME
--- NOTE | 2018-12-28 13:41 | NUR ---
BASE LOADER NOTE DR CHOU NEUROLOGIST AT BEDSIDE NOTIFIED THAT PATIENT AGITATED BP 178/110 HR 128 ORDERED SEROQUEL 25 MG BID AND ATIVAN 0.5 MG Q4 HOUR , ALL NEEDS ATTENDED
--- NOTE | 2018-12-28 14:00 | NUR ---
FITTER MECHANIC NOTE SPOKE WITH ZEINAB SMITH NOTIFIED THAT BP STILL HIGH DESPITE BP MEDS HYDRALAZINE AND ATIVAN WAS GIVEN ALSO HR STILL TACHYCARDIC HR 126 . STATED TO MONITOR ,NO NEW ORDER GIVEN AT THIS TIME
[2018-12-28] MEDS: QUETIAPINE FUMARATE 25 MG TABLET GT SCH (16:07)
[2018-12-28] MEDS: ACETAMINOPHEN 325 MG TABLET PO PRN ×2 (16:13→21:40)
[2018-12-28] MEDS: MORPHINE SULFATE INJ 2 MG/ML DISP.SYRIN IV PRN (16:42)
--- NOTE | 2018-12-28 16:47 | NUR ---
VENEER PULLER NOTE SPOKE WITH DR MONTEIRO NOTIFIED THAT PATIENT STILL AGITATED ,ATIVAN WAS GIVEN EARLIER AND WITH SEVERE GRIMACING HR 125 BP 157/[address] MONTEIRO OK TO GIVE MORPHINE 2 MG IV ,GIVEN ORDERED, WILL CONT TO MONITOR
--- NOTE | 2018-12-28 18:44 | NUR ---
ROTARY ENVELOPE MACHINE OPERATOR NOTE RT AT BEDSIDE TRACH SUCTION DONE , ALL NEEDS ATTENDED, HR AFTER MORPHINE GIVEN ST 115, BP 149/85 ,WILL CONT TO MONITOR CLOSELY
--- NOTE | 2018-12-28 19:24 | NUR ---
PT RECEIVED ORALLY INTUBATED, ON C/A @ 40% VIA T-PIECE. AMBUBAG AND VENT AT BEDSIDE. PT SX'ED AND LAVAGED PRN. ETT SECURED W/ ANCHOFAST, PATENT, CLEAN. BS EQUAL DIMINISHED. NO RESP DISTRESS NOTED. PLAN IS TO CONTINUE CARE UNDER CURRENT MD ORDERS AND MONITOR FOR CHANGES.
--- NOTE | 2018-12-28 20:10 | NUR ---
CODING COMPLIANCE AUDITOR OPENING NOTES RECEIVED REPORT FROM GENNY ROMERO. PATIENT OBTUNDED W/ SPONTANEOUS EYE OPENING BUT SLOW. BREATHING EVEN & UNLABORED W/ ETT IN PLACE & TOLERATING COOL AEROSOL @ 40%, SATING WELL @ 99%. NO S/S OF RESPIRATORY DISTRESS NOTED. ON TELE W/ SINUS RHYTHM, HR 91. LEFT UPPER ARM TLC PICC LINE INTACT & PATENT W/ DRESSING CDI, NO SIGNS OF COMPLICATION NOTED. RIGHT CHEST WALL HD CATH IN PLACE. NO S/S OF PAIN OR DISCOMFORT @ THIS TIME. SAFETY MEASURES IN PLACE W/ SIDE RAILS UP & BED ALARM ON. BILATERAL SOFT WRIST RESTRAINTS MAINTAINED TO PREVENT FROM PULLING ETT & IV LINES. WILL CONTINUE TO MONITOR CLOSELY.
[2018-12-28] MEDS: INSULIN GLARGINE, 100 UNIT/ML CARTRIDGE SQ SCH (21:33)
[2018-12-29] VITALS (41 sets, daily range): BP systolic 90–198; BP diastolic 53–127
[2018-12-29] MEDS: LORAZEPAM INJ 2 MG/ML VIAL IV PRN ×3 (00:15→21:50)
[2018-12-29] MEDS: BLOOD SUGAR DIAGNOSTIC 1 EACH STRIP IN SCH ×5 (00:25→23:06)
[2018-12-29] MEDS: INSULIN REGULAR, HUMAN 100 UNIT/ML 3 ML VIAL SQ PRN ×4 (00:27→23:01)
[2018-12-29] MEDS: MORPHINE SULFATE INJ 2 MG/ML DISP.SYRIN IV PRN (01:45)
--- NOTE | 2018-12-29 04:00 | NUR ---
PATIENT ACCOUNTING REPRESENTATIVE NOTES DR VILLASEÑOR NOTIFIED OF PATIENT'S HIGH BP 180-190S & INCREASED AGITATION ALL NIGHT. PRN'S GIVEN BUT STILL HIGH. RECEIVED NEW ORDER FOR LISINOPRIL PO TO GIVE FIRST DOSE IN AM & WAIT TILL AM FOR MD ROUNDS TO REASSESS PATIENT'S BP MEDS. WILL ENDORSE TO AM NURSE.
[2018-12-29] MEDS: hydrALAZINE HCL IV 20 MG VIAL IV PRN ×2 (04:34→17:10)
[2018-12-29 04:52] LABS: BASOPHILS # (AUTO) 0.1 /CMM (0.0-0.2); BASOPHILS % (AUTO) 0.7 % (0.0-2.0); EOSINOPHILS % (AUTO) 4.8 % (0.0-6.0); HEMATOCRIT 27 % (39-51); LYMPHOCYTES # (AUTO) 0.8 /CMM (0.8-4.8); LYMPHOCYTES % (AUTO) 4.1 % (20.0-44.0); MEAN CORPUSCULAR HGB CONC 33 g/dl (31.0-36.0); MEAN CORPUSCULAR VOLUME 98 fL (80-96); MONOCYTES # (AUTO) 0.6 /CMM (0.1-1.30); MONOCYTES % (AUTO) 3.1 % (2.0-12.0); NEUTROPHILS # (AUTO) 17.4 /CMM (1.8-8.9); NEUTROPHILS % (AUTO) 87.3 % (43.0-81.0); PLATELET COUNT (AUTO) 262 /CMM (150-450); RED BLOOD CELL COUNT(AUTO) 2.78 MIL/uL (4.5-6.0)
[2018-12-29 05:10] LABS: ALBUMIN 1.9 g/dL (3.4-5.0); BILIRUBIN,TOTAL 0.6 mg/dL (0.2-1.0); CALCIUM, SERUM 9.5 mg/dL (8.5-10.1); MAGNESIUM 2.7 mg/dL (1.8-2.4); PHOSPHORUS 5.1 mg/dL (2.5-4.9); POTASSIUM 4.1 mmol/L (3.5-5.1); TOTAL PROTEIN, SERUM 6.9 g/dL (6.4-8.2)
--- NOTE | 2018-12-29 05:30 | NUR ---
TRANSCRIPTER NOTES PRN ATIVAN & HYDRALAZINE GIVEN AGAIN. IMPROVEMENT IN BP NOTED & PATIENT ASLEEP. WILL CONTINUE TO MONITOR.
[2018-12-29] MEDS: PIPERACILLIN /TAZOBACTAM 2.25 G in IV D5W 50 ML IV SCH ×2 (05:45→12:46)
--- NOTE | 2018-12-29 06:00 | NUR ---
BOOKY NOTES HD IN PROGRESS
[2018-12-29 06:10] LABS: CREATININE 8.2 mg/dL (0.6-1.3)
--- NOTE | 2018-12-29 07:30 | NUR ---
RN NOTES RECEIVED PATIENT IN BED. OBTUNDED. WITH ETT 7.[address] AT 25CM, ON COOL AEROSOL @ 40%, PATIENT TOLERATING AND SATING WELL @ 96%. NO SOB OR ANY S/S OF RESPIRATORY DISTRESS NOTED. SINUS TACHY WITH HR ON THE 120 ON THE MONITOR. WITH NGT IN PLACE, CLAMPED AT THIS TIME DUE TO NPO STATUS IN LIEU OF PEG PLACEMENT. NGT PATENT ON FLUSHING, PLACEMENT CONFIRMED BY AUSCULTATION AND ASPIRATING GASTRIC CONTENT. NO RESIDUAL TAKEN AT THIS TIME. IV ACCESS NOTED ON THE LEFT UPPER ARM TLC PICC LINE IN PLACE AND INTACT, DRESSING CDI, PATENT ON FLUSHING, NO SIGNS OF INFECTION OR INFILTRATION NOTED. RIGHT CHEST WALL HD CATH. PATIENT CURRENTLY ON DIALYSIS TREATMENT. BILATERAL SOFT WRIST RESTRAINTS IN PLACE, REMOVED AND REPLACED TO ASSESS, MAINTAINED TO PREVENT FROM PULLING ETT & IV LINES. HOB KEPT ELEVATED FOR ASPIRATION PRECAUTION. SAFETY MEASURES OBSERVED AND KEPT IN PLACE. SIDE RAILS X2 UP. BED LOW AND LOCKED POSITION. CALL LIGHT PLACED WITHIN REACH. WILL CONTINUE TO MONITOR AND ANTICIPATE NEEDS.
--- NOTE | 2018-12-29 08:00 | NUR ---
RN NOTES DIALYSIS TREATMENT ENDED AT THIS TIME, 1500 REMOVED OUT FROM THE PATIENT. PATIENT ABLE TO TOLERATE THE PROCEDURE WELL. NOT ON ANY FORM OF DISTRESS. WILL CONTINUE TO MONITOR
[2018-12-29 08:55] LABS: ABG BASE EXCESS 2.5 mmol/L; ABG OXYGEN SATURATION 94.3 % (92.0-98.5); ABG PCO2 34.9 mmHg (35.0-45.0); ABG PH 7.487 (7.350-7.450); AaDO2 168.1 mmHg; COHb 0.1 % (0.5-1.5); MetHb 0.4 % (0.0-1.5); O2Hb 93.8 % (94.0-97.0); SITE, ABG Left Brachial; VENT MODE, BG CA
--- NOTE | 2018-12-29 09:00 | NUR ---
RN NOTES SEEN AND EXAMINED DY DR. MAZARIEGOS. PER LATER, PEG PLACEMENT WILL NOT BE DONE TODAY. MIGHT BE DONE NEXT WEEK INSTEAD ( TUESDAY). PER MD OKAY TO FEED PATIENT NOW AND PLACE PATIENT ON NPO STATUS ON TUESDAY AT MIDNIGHT. ORDE3R NOTED AND CARRIED OUT
[2018-12-29] MEDS: ASPIRIN 81 MG TAB.CHEW GT SCH (09:36)
[2018-12-29] MEDS: QUETIAPINE FUMARATE 25 MG TABLET GT SCH ×2 (09:37→17:01)
[2018-12-29] MEDS: DOCUSATE SODIUM LIQ 100 MG/10 ML UDC NG SCH ×2 (09:37→17:01)
[2018-12-29] MEDS: LEVETIRACETAM (500MG) 1,000 MG in IV NS 0.9% 100 ML IV SCH ×2 (09:37→21:49)
[2018-12-29] MEDS: ATORVASTATIN 40 MG TABLET GT SCH (09:37)
[2018-12-29] MEDS: CLOPIDOGREL BISULFATE 75 MG TABLET GT SCH (09:37)
[2018-12-29] MEDS: CALCIUM CARBONATE (1250) 500 MG TABLET GT SCH (09:37)
[2018-12-29] MEDS: LISINOPRIL (10MG) 10 MG TABLET PO SCH (09:38)
[2018-12-29] MEDS: LINAGLIPTIN 5 MG TABLET PO SCH (09:38)
[2018-12-29] MEDS: AZELASTINE NASAL SPRAY 30 ML BOTTLE NS SCH ×2 (09:39→17:06)
[2018-12-29] MEDS: TRIAMCINOLONE OINT 0.1% 15 GM TUBE TP SCH ×2 (09:39→17:06)
[2018-12-29] MEDS: SEVELAMER CARBONATE 0.8 GM POWD.PACK GT SCH ×3 (09:47→17:10)
[2018-12-29] MEDS: NEXIUM 40 MG VIAL IV SCH ×2 (09:47→21:49)
[2018-12-29] MEDS ORDERED: VANCOMYCIN 1 GM in IV D5W 250 ML IV ONE (15:00)
[2018-12-29] MEDS ORDERED: DOSE PER PHARMACY (MD SPECIFY MEDICATION) 1 EA XX PRN (16:00)
--- NOTE | 2018-12-29 17:00 | NUR ---
RN NOTES HYDRALAZINE PRN FOR SBP > 160 GIVEN DUE TO BLOOD PRESSURE AT 170/109.
[2018-12-29] MEDS: MEROPENEM 1 G in IV NS 0.9% 100 ML IV SCH ×2 (17:16→18:19)
--- NOTE | 2018-12-29 19:29 | NUR ---
BILATERAL SOFT WRIST RESTRAINTS MAINTAINED TO PREVENT FROM PULLING ETT & IV LINES.
--- NOTE | 2018-12-29 21:30 | NUR ---
GAVE REPORT TO ANTHONY ROMERO FOR CONTINUITY OF CARE.
--- NOTE | 2018-12-29 21:40 | NUR ---
PATIENT FAMILY MEMBER BECAME VERY AGGRESSIVE TOWARDS NALDO OLIVEIRA BECAUSE THERE WAS ALREADY 6 FAMILY MEMBERS IN ROOM AND AN ADDITIONAL FAMILY MEMBER TRIED TO SNEAK INTO THE UNIT AFTER OTHER FAMILY MEMBERS LEFT. NALDO OLIVEIRA NOTIFIED FAMILY THAT THERE ARE ALREADY 6 PEOPLE IN THE ROOM AND THAT SHE CAN NOT SNEAK INTO THE UNIT AFTER THE DOOR IS OPEN. SHE TOLD THE FAMILY THAT IT IS HOSPITAL POLICY THAT ONLY TWO PEOPLE CAN BE IN THE ROOM AT A TIME. THE SON OF THE PATIENT YELLED AT NALDO OLIVEIRA STATING "WHY ARE YOU MAKING IT SUCH A BIG F@#$ING DEAL!? NALDO OLIVEIRA STATED EXCUSE ME? THE SON STATED AGAIN WHY ARE YOU MAKING IT SUCH A BIG DEAL!? NALDO AGAIN REITERATED THAT IT IS HOSPITAL POLICY THAT ONLY TWO FAMILY MEMBERS CAN BE IN THE ROOM AT A TIME. THE SON YELLED MIND YOUR OWN BUSINESS! DON'T PAY ATTENTION TO WHAT IS GOING ON OVER HERE AND WATCH YOUR OWN PATIENTS. THE FAMILY WAS WALKING OUT THE DOOR HE STATED STUPID RACIST, YOU ARE VERY RUDE AND YOU SHOULD NOT BE IN THE MEDICAL FIELD ATTACKING NALDO'S CHARACTER A NURSE PROFESSIONAL. HE WALKED REALLY CLOSE TO NALDO STARING AT HER HE LEFT THE UNIT. SECURITY WAS NOTIFIED OF THE FAMILIES THREATENING BEHAVIOR.
--- NOTE | 2018-12-29 22:05 | NUR ---
INTEGRATION AIDE NOTES RECEIVED PT ON BED, OBTUNDED. ON [facility] VENT SETTING SATURATING 98% WITH ET TUBE 7.5/25. ON TELE MONITOR ST 110. ON NGT FEEDING @30CC/HR NO RESIDUAL NOTED. IV ACCESS WHITLEY TLC PATENT AND INTACT. HD ACCESS RCW NO BLEEDING NOTED. HEAD OF BED ELEVATED. SIDE RAILS UP. CALL LIGHT WITHIN REACH. BED ALARM ON. WILL CONTINUE TO MONITOR PT CLOSELY.
--- NOTE | 2018-12-29 22:11 | NUR ---
POST GRADUATE INTERN NOTES PT ON COOL AEROSOL 10LPM, SATURATING 98%.
[2018-12-29] MEDS: INSULIN GLARGINE, 100 UNIT/ML CARTRIDGE SQ SCH (23:00)
[2018-12-30] VITALS (32 sets, daily range): BP systolic 112–195; BP diastolic 71–121
[2018-12-30] MEDS: NEPRO 1,000 ML BOTTLE GT PRN (01:47)
[2018-12-30] MEDS: hydrALAZINE HCL IV 20 MG VIAL IV PRN ×2 (03:09→19:24)
[2018-12-30] MEDS: LORAZEPAM INJ 2 MG/ML VIAL IV PRN ×3 (03:40→20:56)
[2018-12-30 05:11] LABS: BASOPHILS # (AUTO) 0.1 /CMM (0.0-0.2); BASOPHILS % (AUTO) 0.6 % (0.0-2.0); EOSINOPHILS % (AUTO) 5.2 % (0.0-6.0); HEMATOCRIT 27 % (39-51); HEMOGLOBIN 8.9 g/dL (13.5-17.5); LYMPHOCYTES # (AUTO) 0.9 /CMM (0.8-4.8); LYMPHOCYTES % (AUTO) 4.9 % (20.0-44.0); MEAN CORPUSCULAR HGB CONC 33 g/dl (31.0-36.0); MEAN CORPUSCULAR VOLUME 97 fL (80-96); MONOCYTES # (AUTO) 0.7 /CMM (0.1-1.30); MONOCYTES % (AUTO) 3.6 % (2.0-12.0); NEUTROPHILS # (AUTO) 16.4 /CMM (1.8-8.9); NEUTROPHILS % (AUTO) 85.7 % (43.0-81.0); PLATELET COUNT (AUTO) 278 /CMM (150-450); RED BLOOD CELL COUNT(AUTO) 2.77 MIL/uL (4.5-6.0); WHITE BLOOD COUNT (AUTO) 19.2 K/uL (4.3-11.0)
[2018-12-30] MEDS: BLOOD SUGAR DIAGNOSTIC 1 EACH STRIP IN SCH ×4 (05:13→23:05)
[2018-12-30] MEDS: INSULIN REGULAR, HUMAN 100 UNIT/ML 3 ML VIAL SQ PRN ×2 (05:15→23:06)
[2018-12-30 05:22] LABS: ALBUMIN 1.8 g/dL (3.4-5.0); BILIRUBIN,TOTAL 0.5 mg/dL (0.2-1.0); CALCIUM, SERUM 9.3 mg/dL (8.5-10.1); CREATININE 7.1 mg/dL (0.6-1.3); MAGNESIUM 2.6 mg/dL (1.8-2.4); TOTAL PROTEIN, SERUM 6.9 g/dL (6.4-8.2)
[2018-12-30] MEDS: MORPHINE SULFATE INJ 2 MG/ML DISP.SYRIN IV PRN ×3 (06:17→18:32)
[2018-12-30] MEDS: CLONIDINE HCL 0.1 MG TABLET GT PRN ×3 (06:33→22:20)
--- NOTE | 2018-12-30 07:10 | NUR ---
ORAL PATHOLOGIST NOTES NO ACUTE CHANGES NOTED DURING THE SHIFT. NO RESIDUAL NOTED ON NGT. NO RESPIRATORY DISTRESS NOTED. ENDORSE TO THE AM NURSE FOR CONTINUITY OF CARE.
[2018-12-30 08:55] LABS: ABG BASE EXCESS 2.6 mmol/L; ABG OXYGEN SATURATION 97.1 % (92.0-98.5); ABG PCO2 38.9 mmHg (35.0-45.0); ABG PH 7.453 (7.350-7.450); ABG PO2 104.4 mmHg (75.0-100.0); AaDO2 136.1 mmHg; COHb 0.2 % (0.5-1.5); MetHb 0.1 % (0.0-1.5); O2Hb 96.8 % (94.0-97.0); SITE, ABG Right Radial; VENT MODE, BG 40% COOL MIST
[2018-12-30] MEDS: LISINOPRIL (10MG) 10 MG TABLET PO SCH (09:24)
[2018-12-30] MEDS: SEVELAMER CARBONATE 0.8 GM POWD.PACK GT SCH ×3 (09:26→18:24)
[2018-12-30] MEDS: ASPIRIN 81 MG TAB.CHEW GT SCH (09:27)
[2018-12-30] MEDS: LEVETIRACETAM SOL (5 ML) 100 MG/ML UDC NG SCH ×2 (09:27→20:57)
[2018-12-30] MEDS: CALCIUM CARBONATE (1250) 500 MG TABLET GT SCH (09:28)
[2018-12-30] MEDS: QUETIAPINE FUMARATE 25 MG TABLET GT SCH ×2 (09:28→17:00)
[2018-12-30] MEDS: DOCUSATE SODIUM LIQ 100 MG/10 ML UDC NG SCH ×2 (09:28→17:00)
[2018-12-30] MEDS: LINAGLIPTIN 5 MG TABLET PO SCH (09:28)
[2018-12-30] MEDS: CLOPIDOGREL BISULFATE 75 MG TABLET GT SCH (09:28)
[2018-12-30] MEDS: ATORVASTATIN 40 MG TABLET GT SCH (09:28)
[2018-12-30] MEDS: CYANOCOBALAMIN 1,000 MCG/ML VIAL IM SCH (09:29)
[2018-12-30] MEDS: NEXIUM 40 MG VIAL IV SCH ×2 (09:32→20:56)
[2018-12-30] MEDS: AZELASTINE NASAL SPRAY 30 ML BOTTLE NS SCH ×2 (09:35→17:00)
[2018-12-30] MEDS: TRIAMCINOLONE OINT 0.1% 15 GM TUBE TP SCH ×2 (09:36→17:00)
[2018-12-30] MEDS: MEROPENEM 1 G in IV NS 0.9% 100 ML IV SCH (17:00)
--- NOTE | 2018-12-30 18:20 | NUR ---
RT NOTE PT REMAINS ORALLY INTUBATED WITH ETT. PT IS ON CA @ 40%. MODERATE THICK PALE YELLOW SECRETIONS FOUND UPON SUCTION. NO DISTRESS NOTED AT MOMENT. AMBU BAG AT BED SIDE. Addendum: 12/30/18 at 1821 by HERMELINDA GARCES RT Amended: Links added.
--- NOTE | 2018-12-30 19:37 | NUR ---
RN NOTE: RECEIVED PT ON BED OBTUNDED. NO APPARENT DISTRESS NOTED AT THIS TIME. ON ETT 7.5 AT 25CM FI02 40%. SATURATING WELL. BP ELEVATED 169/80, RECHECKED BP IT WENT UP TO 182/77. HYDRALAZINE PRN WILL BE GIVEN. PT HAS LEFT NARE NG TUBE, INTACT AND IN PLACED WITH NEPRO FEEDING RUNNING AT 30ML/HR. NO RESIDUAL NOTED AT THIS TIME. LEFT UPPER ARM PICC LINE INTACT AND PATENT, FLUSHING WELL. KEPT CLEAN, DRY AND COMFORTABLE. SAFETY AND FALL PRECAUTIONS OBSERVED AND MAINTAINED. WILL CONTINUE TO MONITOR PT.
--- NOTE | 2018-12-30 19:44 | NUR ---
RN NOTE: HYDRALAZINE PRN GIVEN ORDERED. BP RECHECKED 174/82. WILL CONTINUE TO MONITOR PT.
--- NOTE | 2018-12-30 23:02 | NUR ---
RN NOTE: AT AROUND 2220, BP 188/91. CLONIDINE PRN WAS GIVEN. BP RECHECKED, 176/81. WILL CONTINUE TO MONITOR
[2018-12-30] MEDS: INSULIN GLARGINE, 100 UNIT/ML CARTRIDGE SQ SCH (23:07)
--- NOTE | 2018-12-30 23:48 | NUR ---
RN NOTE: BP 199/101, FINANCIAL SERVICES SPECIALIST DR. VILLASEÑOR NOTIFIED AND HE ORDERED LISINOPRIL 20MG DAILY. ORDER CARRIED OUT. WILL CONTINUE TO MONITOR.
[2018-12-31] VITALS (33 sets, daily range): BP systolic 114–205; BP diastolic 65–123
[2018-12-31] MEDS: LORAZEPAM INJ 2 MG/ML VIAL IV PRN ×3 (01:02→23:12)
[2018-12-31] MEDS: hydrALAZINE HCL IV 20 MG VIAL IV PRN ×3 (02:12→18:19)
[2018-12-31] MEDS: NEPRO 1,000 ML BOTTLE GT PRN (03:24)
[2018-12-31 04:46] LABS: BASOPHILS # (AUTO) 0.1 /CMM (0.0-0.2); BASOPHILS % (AUTO) 0.6 % (0.0-2.0); EOSINOPHILS % (AUTO) 5.5 % (0.0-6.0); HEMATOCRIT 26 % (39-51); HEMOGLOBIN 8.3 g/dL (13.5-17.5); LYMPHOCYTES # (AUTO) 0.9 /CMM (0.8-4.8); LYMPHOCYTES % (AUTO) 5.9 % (20.0-44.0); MEAN CORPUSCULAR HGB CONC 33 g/dl (31.0-36.0); MEAN CORPUSCULAR VOLUME 98 fL (80-96); MONOCYTES # (AUTO) 0.8 /CMM (0.1-1.30); MONOCYTES % (AUTO) 5.5 % (2.0-12.0); NEUTROPHILS # (AUTO) 12.3 /CMM (1.8-8.9); NEUTROPHILS % (AUTO) 82.5 % (43.0-81.0); PLATELET COUNT (AUTO) 284 /CMM (150-450); RED BLOOD CELL COUNT(AUTO) 2.61 MIL/uL (4.5-6.0); WHITE BLOOD COUNT (AUTO) 14.9 K/uL (4.3-11.0)
[2018-12-31 05:06] LABS: CALCIUM, SERUM 9.5 mg/dL (8.5-10.1); MAGNESIUM 2.9 mg/dL (1.8-2.4); PHOSPHORUS 4.8 mg/dL (2.5-4.9); POTASSIUM 4.3 mmol/L (3.5-5.1)
[2018-12-31] MEDS: MORPHINE SULFATE INJ 2 MG/ML DISP.SYRIN IV PRN ×2 (05:27→20:45)
[2018-12-31 05:38] LABS: CREATININE 8.8 mg/dL (0.6-1.3)
[2018-12-31] MEDS: BLOOD SUGAR DIAGNOSTIC 1 EACH STRIP IN SCH ×3 (05:39→17:41)
--- NOTE | 2018-12-31 05:43 | NUR ---
ICU/HANDLE ASSEMBLER CRITICAL LAB OF 8.8 CREATININE WAS TAKEN AND REPOSTED TO NIGHT HEATHER HATCH.
[2018-12-31] MEDS: INSULIN REGULAR, HUMAN 100 UNIT/ML 3 ML VIAL SQ PRN ×4 (05:45→22:36)
--- NOTE | 2018-12-31 05:45 | NUR ---
RN NOTE: CREATININE CRITICAL HIGH 8.8, PT ON HD. WILL ENDORSE TO DAY SHIFT RN TO FOLLOW UP WITH MD.
--- NOTE | 2018-12-31 06:00 | NUR ---
RN NOTE: AT AROUND 0430 BP NOTED TO BE 180/104. PT SEEMED TO BE RESTLESS AND AGITATED. MORPHINE PRN GIVEN ORDERED. BP 176/98 AT THIS TIME.
[2018-12-31] MEDS: CLONIDINE HCL 0.1 MG TABLET GT PRN ×2 (06:16→21:59)
--- NOTE | 2018-12-31 06:38 | NUR ---
RN NOTE; NO ACUTE DISTRESS NOTED AT THIS TIME. PT STILL HAS EPISODES OF RESTLESSNESS NOTED. ON COOL AEROSOL, SATURATING WELL. SUCTIONED NEEDED. NO RESIDUAL NOTED ON GT. KEPT CLEAN, DRY AND COMFORTABLE. SAFETY AND FALL PRECAUTIONS OBSERVED AND MAINTAINED. WILL ENDORSE TO DAY SHIFT RN FOR CONTINUITY OF CARE.
--- NOTE | 2018-12-31 07:30 | NUR ---
GALLERY OR MUSEUM ATTENDANT INITIAL NOTE RECEIVED PATIENT AWAKE, NON-VERBAL, RESTLESS. NO FACIAL GRIMACING NOTED. ETT 7.5/25CM ON CA FIO2 60%. ON TELE MONITOR SINUS TACH. WITH WHITLEY PICC LINE PATENT AND INTACT. RIGHT CHEST WALL HD CATH IN PLACE. LEFT NARE NGT PATENT, INTACT, IN PLACE, GTF AT 40ML/HR. NOTED WITH HIGH RESIDUAL >200ML. SKIN WARM AND DRY TO TOUCH. WITH LEFT SIDED WEAKNESS NOTED. Addendum: 12/31/18 at 0816 by ELICIA WATTS RN PLEASE ADD TO NOTE: DIALYSIS NURSE AT BEDSIDE, BILATERAL SOFT RESTRAINTS IN PLACE, CIRCULATION CHECKED. HOB ELEVATED. SIDE RAILS UP AND LOCKED. WILL CONTINUE TO MONITOR.
--- NOTE | 2018-12-31 08:16 | NUR ---
PULL SOCKET ASSEMBLER NOTE SEEN AND EXAMINED BY DR. MONTEIRO
[2018-12-31] MEDS: SEVELAMER CARBONATE 0.8 GM POWD.PACK GT SCH ×3 (09:21→17:31)
[2018-12-31] MEDS: NEXIUM 40 MG VIAL IV SCH ×2 (09:21→20:45)
[2018-12-31] MEDS: CALCIUM CARBONATE (1250) 500 MG TABLET GT SCH (09:24)
[2018-12-31] MEDS: ATORVASTATIN 40 MG TABLET GT SCH (09:25)
[2018-12-31] MEDS: CLOPIDOGREL BISULFATE 75 MG TABLET GT SCH (09:25)
[2018-12-31] MEDS: DOCUSATE SODIUM LIQ 100 MG/10 ML UDC NG SCH ×2 (09:25→17:37)
[2018-12-31] MEDS: QUETIAPINE FUMARATE 25 MG TABLET GT SCH ×2 (09:25→17:37)
[2018-12-31] MEDS: LEVETIRACETAM SOL (5 ML) 100 MG/ML UDC NG SCH (09:26)
[2018-12-31] MEDS: LINAGLIPTIN 5 MG TABLET PO SCH (09:27)
[2018-12-31] MEDS: LISINOPRIL (20MG) 20 MG TABLET PO SCH (09:28)
[2018-12-31] MEDS: ASPIRIN 81 MG TAB.CHEW GT SCH (09:28)
[2018-12-31] MEDS: AZELASTINE NASAL SPRAY 30 ML BOTTLE NS SCH ×2 (09:29→18:08)
[2018-12-31] MEDS: TRIAMCINOLONE OINT 0.1% 15 GM TUBE TP SCH ×2 (09:29→18:09)
--- NOTE | 2018-12-31 09:30 | NUR ---
STAVE HEWER NOTE S/P HD NO COMPLICATIONS NOTED, 1 LITER TAKEN OUT
--- NOTE | 2018-12-31 12:18 | NUR ---
ACOUSTICAL TILE DRILL PRESS OPERATOR NOTE SEEN AND EXAMINED BY DR RYAN
[2018-12-31] MEDS: MEROPENEM 1 G in IV NS 0.9% 100 ML IV SCH (17:21)
--- NOTE | 2018-12-31 19:31 | NUR ---
HAND BUTTON SPLITTER CLOSING NOTE NO SIGNIFICANT CHANGES OVERNIGHT. PRN HYDRALAZINE GIVEN FOR SBP >160. LEFT NARE NGT PATENT AND INTACT, TOLERATING WELL AT THIS TIME. WITH WHITLEY PICC LINE PATENT AND INTACT. BILATERAL SOFT WRIST RESTRAINTS IN PLACE. SINUS TACH ON MONITOR. FOR PEG PLACEMENT TOMORROW, NPO PAST MIDNIGHT. NO RESPIRATORY DISTRESS NOTED ON C/A SUCTIONED NEEDED. HOB ELEVATED. SIDE RAILS UP AND LOCKED. BED KEPT AT LOWEST POSITION. CONTINUITY OF CARE ENDORSED TO PM NURSE.
[2018-12-31] MEDS: LEVETIRACETAM (500MG) 1,000 MG in IV NS 0.9% 100 ML IV SCH (20:45)
[2018-12-31] MEDS: INSULIN GLARGINE, 100 UNIT/ML CARTRIDGE SQ SCH (22:33)
[2019-01-01] VITALS (42 sets, daily range): BP systolic 101–197; BP diastolic 53–123
[2019-01-01] MEDS: hydrALAZINE HCL IV 20 MG VIAL IV PRN ×2 (02:24→08:23)
[2019-01-01] MEDS: ACETAMINOPHEN 325 MG TABLET PO PRN (04:36)
[2019-01-01] MEDS: NEPRO 1,000 ML BOTTLE GT PRN (06:22)
[2019-01-01] MEDS: BLOOD SUGAR DIAGNOSTIC 1 EACH STRIP IN SCH ×5 (06:22→23:33)
--- NOTE | 2019-01-01 07:30 | NUR ---
WAITER/WAITRESS ROOM SERVICE INITIAL NOTE RECEIVED PATIENT AWAKE, NON-VERBAL, RESTLESS. NO FACIAL GRIMACING NOTED. ETT 7.5/25CM ON CA FIO2 40%. N0 RESPIRATORY DISTRESS NOTED. ON TELE MONITOR SINUS TACH. WITH WHITLEY PICC LINE PATENT AND INTACT. RIGHT CHEST WALL HD CATH IN PLACE. LEFT NARE NGT PATENT, INTACT, CLAMPED. SKIN WARM AND DRY TO TOUCH. WITH LEFT SIDED WEAKNESS NOTED. PENDING PEG PLACEMENT TODAY. HOB ELEVATED. SIDE RAILS UP AND LOCKED. BED KEPT AT LOWEST POSITION. WILL CONTINUE TO MONITOR.
[2019-01-01] MEDS: SEVELAMER CARBONATE 0.8 GM POWD.PACK GT SCH ×3 (08:00→17:54)
[2019-01-01] MEDS: LISINOPRIL (20MG) 20 MG TABLET PO SCH (08:24)
[2019-01-01] MEDS: QUETIAPINE FUMARATE 25 MG TABLET GT SCH ×2 (08:24→17:54)
[2019-01-01] MEDS: LINAGLIPTIN 5 MG TABLET PO SCH (08:34)
[2019-01-01] MEDS: CLOPIDOGREL BISULFATE 75 MG TABLET GT SCH (08:34)
[2019-01-01] MEDS: ASPIRIN 81 MG TAB.CHEW GT SCH (08:34)
[2019-01-01] MEDS: CALCIUM CARBONATE (1250) 500 MG TABLET GT SCH (08:35)
[2019-01-01] MEDS: DOCUSATE SODIUM LIQ 100 MG/10 ML UDC NG SCH ×2 (08:35→17:54)
[2019-01-01] MEDS: ATORVASTATIN 40 MG TABLET GT SCH (08:35)
[2019-01-01] MEDS: AZELASTINE NASAL SPRAY 30 ML BOTTLE NS SCH ×2 (08:38→17:54)
[2019-01-01] MEDS: TRIAMCINOLONE OINT 0.1% 15 GM TUBE TP SCH ×2 (08:38→17:54)
[2019-01-01] MEDS: NEXIUM 40 MG VIAL IV SCH ×2 (09:00→21:01)
--- NOTE | 2019-01-01 09:17 | NUR ---
DESIGN INSERTER NOTE OR TECH AT BEDSIDE.
--- NOTE | 2019-01-01 09:49 | NUR ---
LITHOGRAPHIC GENERAL WORKER NOTE OR TEAM AND DR. MAZARIEGOS AT BEDSIDE FOR PEG PLACEMENT
--- NOTE | 2019-01-01 10:01 | NUR ---
CHIEF BANK EXAMINER NOTE PEG PLACEMENT COMPLETED. PER OK TO USE PEG FOR WATER AND MEDICINE AFTER 4 HOURS AND FEEDING TOMORROW MORNING.
--- NOTE | 2019-01-01 10:35 | NUR ---
COLLEGE RECRUITER NOTE NON- ADMIN RENVELA AND NEXIUM, WAS NOT AVAILABLE WHEN IT WAS DUE, AND PATIENT HAD PEG PLACEMENT TODAY.
[2019-01-01] MEDS: LEVETIRACETAM (500MG) 1,000 MG in IV NS 0.9% 100 ML IV SCH ×2 (10:42→21:00)
--- NOTE | 2019-01-01 11:13 | NUR ---
BOOKMOBILE DRIVER NOTE CALLED [employer] FABIANO REGARDING SETTING UP FAMILY MEETING WITH DR. MONTEIRO TOMORROW AT 3PM. AWARE.
--- NOTE | 2019-01-01 12:00 | NUR ---
STATEMENT CLERKS MANAGER NOTE SPOKE WITH NILE, CONFIRMED MEETING FOR TOMORROW AT 3PM WITH DR. MONTEIRO AND ANSWERED QUESTIONS THAT HE HAD.
--- NOTE | 2019-01-01 12:25 | NUR ---
TERESA received a call from pt's HEATHER Wahl informing SW that Dr. Auguste would like to schedule a family meeting tomorrow at 3PM. TERESA contacted Kevan informing him regarding scheduling a meeting with Dr. Auguste for tomorrow at 3PM. Kevan agreed to come tomorrow and will bring [place] and pt's to attend the meeting. Kevan wanted to know the exact reasons for the meeting, TERESA informed him she will transfer the call to pt' s HEATHER Wahl so she can explain to him the details regarding the meeting. TERESA transferred call to ICU [phone].
--- NOTE | 2019-01-01 14:00 | NUR ---
WILLOW MACHINE OPERATOR NOTE AT BEDSIDE, AWARE OF MEETING TOMORROW.
[2019-01-01] MEDS: MORPHINE SULFATE INJ 2 MG/ML DISP.SYRIN IV PRN (14:29)
[2019-01-01] MEDS: POLYVINYL ALCOHOL 15 ML BOTTLE EACHEYE PRN (14:38)
[2019-01-01] MEDS: MEROPENEM 1 G in IV NS 0.9% 100 ML IV SCH (17:54)
--- NOTE | 2019-01-01 18:09 | NUR ---
ABATTOIR SUPERVISOR NOTE PATIENT NPO FROM FEEDING TIL TOMORROW MORNING. INFORMED GLOVE CUTTER ZEINAB IF HE WOULD LIKE TO START PATIENT ON IVF. RECEIVED ORDER FOR D5NS. NOTED AND CARRIED OUT. WILL CONTINUE TO MONITOR. Addendum: 01/01/19 at 1937 by ELICIA WATTS RN PLEASE ADD: CONTINUE IVF UNTIL PATIENT START FEEDING.
[2019-01-01] MEDS ORDERED: IV D5/ 0.9% NACL 1,000 ML IV PRN (18:30)
--- NOTE | 2019-01-01 19:37 | NUR ---
LEARNING SOLUTIONS SPECIALIST CLOSING NOTES NO RESPIRATORY DISTRESS NOTED. ETT IN PLACE, ON C/A. SUCTIONED Q AND PRN. PATIENT RESTING COMFORTABLY. NO S/S OF PAIN OR DISCOMFORT. ON TELE SR. WHITLEY PICC LINE PATENT AND INTACT WITH D5NS AT 75ML/HR RUNNING. PEG PATENT INTACT, IN PLACE. MINIMAL BLEEDING NOTED. RIGHT WRIST RESTRAINT IN PLACE FOR SAFETY. HOB ELEVATED. SIDE RAILS UP AND LOCKED. BED KEPT AT LOWEST POSITION. CONTINUITY OF CARE ENDORSED TO PM NURSE.
--- NOTE | 2019-01-01 19:56 | NUR ---
EXTRUSION PRESS OPERATOR OPENING NOTES RECEIVED REPORT FROM [facility] RN. PATIENT OBTUNDED W/ SPONTANEOUS EYE OPENING BUT SLOW. BREATHING EVEN & UNLABORED W/ ETT IN PLACE & TOLERATING COOL AEROSOL @ 40%, SATING WELL @ 98-99%. NO S/S OF RESPIRATORY DISTRESS NOTED. ON TELE W/ SINUS RHYTHM, HR 81. LEFT UPPER ARM TLC PICC LINE INTACT & PATENT W/ DRESSING CDI, NO SIGNS OF COMPLICATION NOTED. IVF D5NS INFUSING WELL @ 75 ML/HR. RIGHT CHEST WALL HD CATH IN PLACE. G-TUBE PATENT & FLUSHING WELL, NO SIGNS OF BLEEDING OR SWELLING AROUND SITE. NO S/S OF PAIN OR DISCOMFORT @ THIS TIME. SAFETY MEASURES IN PLACE W/ SIDE RAILS UP & BED ALARM ON. RIGHT SOFT WRIST RESTRAINT MAINTAINED TO PREVENT FROM PULLING ETT & IV LINES. WILL CONTINUE TO MONITOR CLOSELY.
[2019-01-01] MEDS: INSULIN GLARGINE, 100 UNIT/ML CARTRIDGE SQ SCH (21:03)
[2019-01-01] MEDS: INSULIN REGULAR, HUMAN 100 UNIT/ML 3 ML VIAL SQ PRN (23:34)
[2019-01-02] VITALS (47 sets, daily range): BP systolic 106–166; BP diastolic 68–105
--- NOTE | 2019-01-02 04:58 | NUR ---
COMMERCIAL LOAN CLOSER NOTES UPON 0 ASSESSMENT, PATIENT NOTED TO BE MORE AWAKE & ALERT @ THIS TIME. RESPONDS TO NAME AND ABLE TO FOLLOW SIMPLE COMMANDS BETTER, LIKE RAISING ARMS & GRIPPING HANDS. ABLE TO NOD HEAD LEFT, RIGHT, UP & DOWN. PATIENT NOTED TO MOVE LEFT ARM MORE. TRACKING WITH EYES W/ MORE IMPROVEMENT ALSO NOTED. NO TWITCHING OR JERKING NOTED DURING THE NIGHT. WILL CONTINUE TO MONITOR CLOSELY.
[2019-01-02 05:05] LABS: BASOPHILS # (AUTO) 0.1 /CMM (0.0-0.2); BASOPHILS % (AUTO) 0.8 % (0.0-2.0); EOSINOPHILS % (AUTO) 5.7 % (0.0-6.0); HEMATOCRIT 24 % (39-51); LYMPHOCYTES % (AUTO) 6.1 % (20.0-44.0); MEAN CORPUSCULAR HGB CONC 33 g/dl (31.0-36.0); MEAN CORPUSCULAR VOLUME 97 fL (80-96); MONOCYTES # (AUTO) 1.1 /CMM (0.1-1.30); MONOCYTES % (AUTO) 6.8 % (2.0-12.0); NEUTROPHILS # (AUTO) 12.9 /CMM (1.8-8.9); NEUTROPHILS % (AUTO) 80.6 % (43.0-81.0); PLATELET COUNT (AUTO) 289 /CMM (150-450); RED BLOOD CELL COUNT(AUTO) 2.47 MIL/uL (4.5-6.0)
[2019-01-02 05:24] LABS: ALBUMIN 1.7 g/dL (3.4-5.0); BILIRUBIN,TOTAL 0.4 mg/dL (0.2-1.0); CALCIUM, SERUM 9.3 mg/dL (8.5-10.1); MAGNESIUM 2.9 mg/dL (1.8-2.4); PHOSPHORUS 4.9 mg/dL (2.5-4.9); POTASSIUM 4.3 mmol/L (3.5-5.1); TOTAL PROTEIN, SERUM 6.7 g/dL (6.4-8.2)
[2019-01-02 05:29] LABS: CREATININE 8.6 mg/dL (0.6-1.3)
[2019-01-02] MEDS: BLOOD SUGAR DIAGNOSTIC 1 EACH STRIP IN SCH ×3 (05:51→17:27)
[2019-01-02] MEDS: INSULIN REGULAR, HUMAN 100 UNIT/ML 3 ML VIAL SQ PRN (05:53)
[2019-01-02] MEDS: NEPRO 1,000 ML BOTTLE GT PRN (06:45)
--- NOTE | 2019-01-02 07:10 | NUR ---
RN NOTES RECEIVED PT ON BED, INTUBATED, EYES ARE OPEN, FOLLOWS SIMPLE COMMAND, TRY TO TALK RESPONSE TO HIS NAME, INTUBATED, ON COOL AEROSOL AT 40%, VSS STABLE, ON TELE SR -ST ,LEFT UPPER ARM TLC PICC LINE INTACT & PATENT W/ DRESSING CDI, NO SIGNS OF COMPLICATION NOTED. RIGHT CHEST WALL HD CATH IN PLACE. GEVITY AT 30CC/ HR RUNNING VIA GT, NO RESIDUAL NOTED, NO S/S OF PAIN OR DISCOMFORT @ THIS TIME. SAFETY MEASURES IN PLACE W/ SIDE RAILS UP & BED ALARM ON. RIGHT SOFT WRIST RESTRAINT MAINTAINED TO PREVENT FROM PULLING ETT & IV LINES. WILL CONTINUE TO MONITOR.
--- NOTE | 2019-01-02 08:13 | NUR ---
RT RT WAS CALLED TO PATIENTS ROOM AFTER PATIENT SELF EXTUBATED HIMSELF. PATIENT PLACED ON 5L N/C AND IS RESPONDING TO COMMANDS WITH NO SOB AT THIS TIME. WILL CONT TO MONITOR CLOSELY
--- NOTE | 2019-01-02 08:15 | NUR ---
RN NOTES ET TUBE IS OUT HALF WAY . PT IS AGITATED AND RESTLESS , SOFT WRIST RESTRAINS STILL ON . ET TUBE REMOVED COMPLETELY BY RT , O2 SAT 96%, ORAL SUCTIONING DONE, PT PLACED ON O2 AT 4-5 L N/C , VSS STABLE , DR MONTEIRO NOTIFED, NO DISTRESS NOTED, CONTINUE TO MONITOR .
[2019-01-02] MEDS: ATORVASTATIN 40 MG TABLET GT SCH (08:18)
[2019-01-02] MEDS: LINAGLIPTIN 5 MG TABLET PO SCH (08:18)
[2019-01-02] MEDS: QUETIAPINE FUMARATE 25 MG TABLET GT SCH ×2 (08:18→17:28)
[2019-01-02] MEDS: LISINOPRIL (20MG) 20 MG TABLET PO SCH (08:18)
[2019-01-02] MEDS: CLOPIDOGREL BISULFATE 75 MG TABLET GT SCH (08:18)
[2019-01-02] MEDS: DOCUSATE SODIUM LIQ 100 MG/10 ML UDC NG SCH ×2 (08:18→17:27)
[2019-01-02] MEDS: SEVELAMER CARBONATE 0.8 GM POWD.PACK GT SCH ×3 (08:18→17:27)
[2019-01-02] MEDS: ASPIRIN 81 MG TAB.CHEW GT SCH (08:18)
[2019-01-02] MEDS: CALCIUM CARBONATE (1250) 500 MG TABLET GT SCH (08:18)
[2019-01-02] MEDS: NEXIUM 40 MG VIAL IV SCH ×2 (08:20→21:56)
[2019-01-02] MEDS: TRIAMCINOLONE OINT 0.1% 15 GM TUBE TP SCH ×2 (08:21→17:27)
[2019-01-02] MEDS: AZELASTINE NASAL SPRAY 30 ML BOTTLE NS SCH ×2 (08:21→17:26)
[2019-01-02] MEDS: LEVETIRACETAM (500MG) 1,000 MG in IV NS 0.9% 100 ML IV SCH ×2 (09:28→21:12)
[2019-01-02 10:29] LABS: ABG BASE EXCESS 0.5 mmol/L; ABG OXYGEN SATURATION 97.7 % (92.0-98.5); ABG PCO2 35.3 mmHg (35.0-45.0); ABG PH 7.456 (7.350-7.450); ABG PO2 114.9 mmHg (75.0-100.0); AaDO2 418.4 mmHg; COHb 0.4 % (0.5-1.5); MetHb 0.4 % (0.0-1.5); O2Hb 96.9 % (94.0-97.0); SITE, ABG Left Brachial; VENT MODE, BG 80% NRB MASK
--- NOTE | 2019-01-02 11:00 | NUR ---
RN NOTES PT ON NONREBREATHING MASK , O2 SAT IN HIGH 90'S , CONTINUE TO MONITOR .
[2019-01-02] MEDS: ONDANSETRON HCL/PF 4 MG/2 ML VIAL IVP PRN (11:41)
--- NOTE | 2019-01-02 11:41 | NUR ---
RN NOTES TF AT 40CC/HR , PT COMPLAINING OF NAUSEA, 100 CC TF RESIDUAL NOTED. TF TURNED DOWN TO 20 CC /HR . ZOFRAN GIVEN, CONTINUE TO MONITOR .
--- NOTE | 2019-01-02 13:00 | NUR ---
RN NOTES PT PLACE ON SIMPLE MASK AT 6L, O2 SAT WNL, CONTINUE TO MONITOR .
[2019-01-02] MEDS ORDERED: EPOETIN ALFA (10,000 UNIT) 10,000 UNIT/ML VIAL IV SCH (15:00)
--- NOTE | 2019-01-02 17:00 | NUR ---
RN NOTES PT RECEIVING HD AT THIS TIME, VSS STABLE , CONTINUE TO MONITOR .
[2019-01-02] MEDS: MEROPENEM 1 G in IV NS 0.9% 100 ML IV SCH (17:28)
--- NOTE | 2019-01-02 18:10 | NUR ---
RN NOTES VSS STABLE, PT ON SIMPLE MASK AT 6L , VSS STABLE , AGITATED AT TIMES, PSCHY CONSULT ORDERED PER DR JUAREZ . FACE SHEET FAXED TO [facility]. CONTINUE TO MONITOR.
--- NOTE | 2019-01-02 18:49 | NUR ---
RN NOTES VSS STABLE, PT IS RESTLESS , WANTS TO GO HOME, WILL ENDORSE TO AMPOULE INSPECTOR NURSE FOR CONTINUITY OF CARE .
--- NOTE | 2019-01-02 20:01 | NUR ---
SUPERINTENDENT ELECTRIC POWER. INITIAL ASSESSMENT. RECEIVED THE PT REST ON THE BED. PT IS LETHARGIC. OXYGEN 6L VIA MASK. SAT 98%. MO ACUTE DISTRESS NOTED. AIR POLLUTION AUDITOR SHOWING NSR. COLE SOFT WRIST RESTRAINT CHECKED AND RELEASED. NO INJURY OR REDNESS NOTED. GT INTACT. HOB ELEVATED. WILL CONTINUE TO MONITOR VITALS.
[2019-01-02] MEDS: IV NS 0.9% 250 ML IV PRN (22:30)
[2019-01-02] MEDS: LORAZEPAM INJ 2 MG/ML VIAL IV PRN (22:36)
[2019-01-03] VITALS (49 sets, daily range): BP systolic 99–178; BP diastolic 58–104
[2019-01-03] MEDS: INSULIN GLARGINE, 100 UNIT/ML CARTRIDGE SQ SCH ×2 (00:09→21:07)
[2019-01-03] MEDS: BLOOD SUGAR DIAGNOSTIC 1 EACH STRIP IN SCH ×5 (00:10→23:13)
[2019-01-03] MEDS: MORPHINE SULFATE INJ 2 MG/ML DISP.SYRIN IV PRN (01:05)
--- NOTE | 2019-01-03 04:00 | NUR ---
BARREL RIFLER BUTTON. AM CARE, ORAL CARE, BED BATH GIVEN, LINEN CHANGED, REMAINING SAME OXYGEN NASAL CANNULA TOLERATED WELL. SAT 98%. NO ACUTE DISTRESS NOTED. HAIRSPRING STUDDER SHOWING NSR. IV LT UPPER ARM PICC LINE. TKO RUNNING, GT INTACT, HOB ELEVATED. TURN AND REPOSITION Q2H. COLE SOFT WRIST RESTRAINT CHECKED AND RELEASED, NO INJURY OR REDNESS NOTED.
[2019-01-03 04:55] LABS: BASOPHILS # (AUTO) 0.1 /CMM (0.0-0.2); EOSINOPHILS % (AUTO) 6.9 % (0.0-6.0); HEMATOCRIT 22 % (39-51); HEMOGLOBIN 7.6 g/dL (13.5-17.5); LYMPHOCYTES # (AUTO) 0.7 /CMM (0.8-4.8); LYMPHOCYTES % (AUTO) 6.9 % (20.0-44.0); MEAN CORPUSCULAR HGB CONC 34 g/dl (31.0-36.0); MEAN CORPUSCULAR VOLUME 97 fL (80-96); MONOCYTES # (AUTO) 0.7 /CMM (0.1-1.30); MONOCYTES % (AUTO) 6.4 % (2.0-12.0); NEUTROPHILS # (AUTO) 8.2 /CMM (1.8-8.9); NEUTROPHILS % (AUTO) 78.8 % (43.0-81.0); PLATELET COUNT (AUTO) 249 /CMM (150-450); RED BLOOD CELL COUNT(AUTO) 2.28 MIL/uL (4.5-6.0); WHITE BLOOD COUNT (AUTO) 10.4 K/uL (4.3-11.0)
[2019-01-03] MEDS ORDERED: DEXTROSE 10% IN WATER 250 ML IV ONE (05:27)
[2019-01-03] MEDS ORDERED: DEXTROSE 10% IN WATER 250 ML BAG IV ONE (05:30)
--- NOTE | 2019-01-03 05:30 | NUR ---
BUCKLE STRAP PUNCHER. PT BLOOD SUGAR 43. D10 IV GIVEN PER ORDERED. S/P D10W BLOOD SUGAR 103. WILL CONTINUE TO MONITOR.
[2019-01-03 05:31] LABS: ALBUMIN 1.7 g/dL (3.4-5.0); BILIRUBIN,TOTAL 0.3 mg/dL (0.2-1.0); CALCIUM, SERUM 8.7 mg/dL (8.5-10.1); CREATININE 6.5 mg/dL (0.6-1.3); MAGNESIUM 2.4 mg/dL (1.8-2.4); TOTAL PROTEIN, SERUM 6.5 g/dL (6.4-8.2)
[2019-01-03] MEDS: ACETAMINOPHEN 325 MG TABLET PO PRN (05:36)
--- NOTE | 2019-01-03 06:00 | NUR ---
TELEVISION SCHEDULE COORDINATOR. TEMPERATURE 100.8. TYLENOL GIVEN PER ORDERED.
[2019-01-03] MEDS: SEVELAMER CARBONATE 0.8 GM POWD.PACK GT SCH ×3 (08:24→17:36)
[2019-01-03] MEDS: LEVETIRACETAM (500MG) 1,000 MG in IV NS 0.9% 100 ML IV SCH ×2 (08:25→20:52)
[2019-01-03] MEDS: ASPIRIN 81 MG TAB.CHEW GT SCH (08:26)
[2019-01-03] MEDS: DOCUSATE SODIUM LIQ 100 MG/10 ML UDC NG SCH ×2 (08:27→16:34)
[2019-01-03] MEDS: ATORVASTATIN 40 MG TABLET GT SCH (08:27)
[2019-01-03] MEDS: LINAGLIPTIN 5 MG TABLET PO SCH (08:28)
[2019-01-03] MEDS: CLOPIDOGREL BISULFATE 75 MG TABLET GT SCH (08:28)
[2019-01-03] MEDS: QUETIAPINE FUMARATE 25 MG TABLET GT SCH ×2 (08:28→16:34)
[2019-01-03] MEDS: NEXIUM 40 MG VIAL IV SCH ×2 (08:28→20:53)
[2019-01-03] MEDS: LISINOPRIL (20MG) 20 MG TABLET PO SCH (08:29)
[2019-01-03] MEDS: CALCIUM CARBONATE (1250) 500 MG TABLET GT SCH (08:30)
[2019-01-03 08:49] LABS: ABG BASE EXCESS 4.4 mmol/L; ABG OXYGEN SATURATION 95.1 % (92.0-98.5); ABG PCO2 43.2 mmHg (35.0-45.0); ABG PH 7.443 (7.350-7.450); ABG PO2 79.4 mmHg (75.0-100.0); AaDO2 170.6 mmHg; COHb 0.9 % (0.5-1.5); MetHb 0.5 % (0.0-1.5); O2Hb 93.8 % (94.0-97.0); SITE, ABG Left Brachial; VENT MODE, BG 6L N/C
[2019-01-03] MEDS: AZELASTINE NASAL SPRAY 30 ML BOTTLE NS SCH ×2 (09:32→17:37)
[2019-01-03] MEDS: TRIAMCINOLONE OINT 0.1% 15 GM TUBE TP SCH ×2 (09:32→17:37)
[2019-01-03] MEDS ORDERED: DEXTROSE 10% IN WATER 250 ML BAG IV PRN (12:00)
[2019-01-03] MEDS: ERGOCALCIFEROL (VITAMIN D 2) 50,000 UNIT CAPSULE GT SCH (12:08)
--- NOTE | 2019-01-03 12:31 | NUR ---
RN NOTES 0730-RECEIVED PATIENT FROM RN. PATIENT NOTED OPENING EYES WHEN NAME CALLED, FOLLOWS 1 SIMPLE COMMAND. NO SIGN OF PAIN. 0900-SEEN BY NEPHROLOGY, FEEDING STATUS REPORTED.PATIENT ON TUBE FEEDINGS, MONITOR TOLERANCE TO IT 1230-HYPOGLYCEMIA NOTED, TREATMENT ORDER INITIATED, BG AFTER TREATMENT UP TO 10 MG/DL.PATIENT , SANTINO, VIOSITED, SHE WAS INFORMED OF PATIENT STATUS. PATIENT AWAKE, FOLLOWS 1 SIMPLE COMMAND. GT FEEDINGS ONGOING. SECONDARY SET UP MAN ALSO UPDATED EARLIER.
[2019-01-03] MEDS ORDERED: NA PHOS,M-B/NA PHOS,DI-BA 1 EA ENEMA RC PRN (15:30)
[2019-01-03] MEDS: LACTULOSE 10 G/15 ML UDC (PYXIS) PEG SCH (16:34)
[2019-01-03] MEDS: MEROPENEM 1 G in IV NS 0.9% 100 ML IV SCH (16:35)
--- NOTE | 2019-01-03 18:26 | NUR ---
RN NOTES 1530-KUB RESULTS RELAYED TO DR. BLACKWELL, WITH ORDERS NOTED. 1630-PATIENT NEPHEW VISIT, STATES PATIENT IS BAUSEATED, NOTED THAT PATIENT IS COUGHING BUT UNABLE TO EXPECTORATE, TRIED TO SUCTION HIM BUT RESISTS 1730-MANUAL DISEMPACTION DONE AFTER ORDER, FORMED STOOLS REMOVED.PATIENT APPEARWED MORE COMFORTABLE AFTER 1800-DR JUAREZ MADE ROUNDS, PATIENT AT BEDSIDE. PATIENT ABLE TO STATE HER NAME WHEN ASKED, DR JUAREZ ASKED IF PATIENT STATUS IS THE SAME WHEN HE WAS HOME AND SAID YES.
[2019-01-03] MEDS: hydrALAZINE HCL IV 20 MG VIAL IV PRN (18:34)
--- NOTE | 2019-01-03 19:30 | NUR ---
RECEIVED PATIENT IN BED, PATIENT IS LETHARGIC, DROWSY BUT AROUSAL TO THE VOICE. VSS, AFEBRILE, NO DISTRESS NOTED. CONTINUE TO MONITOR
--- NOTE | 2019-01-03 20:00 | NUR ---
TUBE FEEDING RESIDUAL IS 100ML , PATIENT IS DUE FOR SEE Pinzon NP, NOTIFIED. WILL HOLD LANTUS FOR TONIGHT PER HER ORDER. CONTINUE TO MONITOR
[2019-01-03] MEDS: INSULIN REGULAR, HUMAN 100 UNIT/ML 3 ML VIAL SQ PRN (23:14)
[2019-01-04] VITALS (27 sets, daily range): BP systolic 110–175; BP diastolic 58–114
--- NOTE | 2019-01-04 00:30 | NUR ---
patient is awake c/o abdominal bloating- upon assessment patient is impacted, disimpaction done. large amt. of hard formed stool out. continue to monitor
--- NOTE | 2019-01-04 01:40 | NUR ---
patient c/o severe abdominal pain - morphine given
[2019-01-04] MEDS: MORPHINE SULFATE INJ 2 MG/ML DISP.SYRIN IV PRN (01:49)
--- NOTE | 2019-01-04 02:29 | NUR ---
PATIENT IS ASLEEP
--- NOTE | 2019-01-04 03:30 | NUR ---
SBP 161- HYDRALAZINE GIVEN ORDERED
[2019-01-04] MEDS: hydrALAZINE HCL IV 20 MG VIAL IV PRN ×2 (03:39→20:24)
[2019-01-04] MEDS: Z GUARD REMEDY 2 OZ OINT TP PRN (03:42)
[2019-01-04 04:56] LABS: BASOPHILS # (AUTO) 0.1 /CMM (0.0-0.2); BASOPHILS % (AUTO) 0.9 % (0.0-2.0); EOSINOPHILS % (AUTO) 5.7 % (0.0-6.0); HEMATOCRIT 21 % (39-51); HEMOGLOBIN 7.1 g/dL (13.5-17.5); LYMPHOCYTES # (AUTO) 0.6 /CMM (0.8-4.8); MEAN CORPUSCULAR HGB CONC 34 g/dl (31.0-36.0); MEAN CORPUSCULAR VOLUME 98 fL (80-96); MONOCYTES # (AUTO) 0.7 /CMM (0.1-1.30); MONOCYTES % (AUTO) 7.1 % (2.0-12.0); NEUTROPHILS # (AUTO) 8.3 /CMM (1.8-8.9); NEUTROPHILS % (AUTO) 80.3 % (43.0-81.0); PLATELET COUNT (AUTO) 258 /CMM (150-450); RED BLOOD CELL COUNT(AUTO) 2.18 MIL/uL (4.5-6.0); WHITE BLOOD COUNT (AUTO) 10.4 K/uL (4.3-11.0)
[2019-01-04 05:18] LABS: CALCIUM, SERUM 8.7 mg/dL (8.5-10.1); MAGNESIUM 2.6 mg/dL (1.8-2.4); PHOSPHORUS 4.4 mg/dL (2.5-4.9); POTASSIUM 4.6 mmol/L (3.5-5.1)
[2019-01-04 05:20] LABS: CREATININE 8.1 mg/dL (0.6-1.3)
[2019-01-04] MEDS: BLOOD SUGAR DIAGNOSTIC 1 EACH STRIP IN SCH ×3 (05:26→17:51)
[2019-01-04] MEDS: INSULIN REGULAR, HUMAN 100 UNIT/ML 3 ML VIAL SQ PRN ×2 (05:27→12:17)
--- NOTE | 2019-01-04 07:00 | NUR ---
JOB PUTTER UP AND TICKET PREPARER NOTES RECEIVED BEDSIDE REPORT. PATIENT A/O X 1-2. NO SIGNS OR SYMPTOMS OF RESPIRATORY DISTRESS SATURATING 94% ON 5 LTRS NASAL CANNULA. NO C/O PAIN. BILATERAL WRIST RESTRAINTS FOR INTERFERING WITH MED CARE AND PULLING AT LINES CHECKED FOR CIRCULATION. GTF OF NEPRO @ 20ML/HR PLACEMENT CHECKED 120ML RESIDUAL FEEDING CURRENTLY ON HOLD. GOAL IS FOR 40ML/HR. SINUS TACHY ON MONITOR VITALS STABLE. HOB ELEVATED <30 DEGREES. ASPIRATION AND SAFETY PRECAUTIONS IN PLACE BED I LOW POSITION. WILL CONT TO MONITOR ACCORDINGLY THROUGHOUT SHIFT
[2019-01-04] MEDS: NEPRO 1,000 ML BOTTLE GT PRN (07:26)
[2019-01-04] MEDS: NEXIUM 40 MG VIAL IV SCH ×2 (08:44→20:53)
[2019-01-04] MEDS: CALCIUM CARBONATE (1250) 500 MG TABLET GT SCH (08:45)
[2019-01-04] MEDS: ASPIRIN 81 MG TAB.CHEW GT SCH (08:45)
[2019-01-04] MEDS: CLOPIDOGREL BISULFATE 75 MG TABLET GT SCH (08:45)
[2019-01-04] MEDS: LINAGLIPTIN 5 MG TABLET PO SCH (08:45)
[2019-01-04] MEDS: CLONIDINE HCL 0.1MG/24H PTWK 1 EA PATCH TD SCH (08:45)
[2019-01-04] MEDS: QUETIAPINE FUMARATE 25 MG TABLET GT SCH ×2 (08:45→16:00)
[2019-01-04] MEDS: DOCUSATE SODIUM LIQ 100 MG/10 ML UDC NG SCH ×2 (08:45→16:00)
[2019-01-04] MEDS: LACTULOSE 10 G/15 ML UDC (PYXIS) PEG SCH (08:45)
[2019-01-04] MEDS: ATORVASTATIN 40 MG TABLET GT SCH (08:45)
[2019-01-04] MEDS: SEVELAMER CARBONATE 0.8 GM POWD.PACK GT SCH ×3 (08:46→17:55)
[2019-01-04] MEDS: LISINOPRIL (20MG) 20 MG TABLET PO SCH (08:46)
[2019-01-04] MEDS: TRIAMCINOLONE OINT 0.1% 15 GM TUBE TP SCH ×2 (08:48→17:00)
[2019-01-04] MEDS: AZELASTINE NASAL SPRAY 30 ML BOTTLE NS SCH ×2 (08:49→17:00)
[2019-01-04] MEDS ORDERED: EPOETIN ALFA (10,000 UNIT) 10,000 UNIT/ML VIAL IV ONE (09:00)
[2019-01-04] MEDS: LEVETIRACETAM (500MG) 1,000 MG in IV NS 0.9% 100 ML IV SCH ×2 (09:13→21:31)
--- NOTE | 2019-01-04 11:16 | NUR ---
PROGRAM PROPOSALS COORDINATOR NOTES REYNA FROM DIALYSIS CALLED TO CONFIRM PT ON UNIT AND WILL HAVE HD AFTER 1400
--- NOTE | 2019-01-04 11:49 | NUR ---
TURF FARMER NOTES BILATERAL WRIST RESTRAINTS REMOVED. EXPLAINED ALL TUBES AND AND PURPOSE TO PATIENT PATIENT STATES HE UNDERSTANDS AND WILL NOT PULL AT LINES. WILL CONT TO MONITOR FOR NEED OF RESTRAINTS
--- NOTE | 2019-01-04 12:17 | NUR ---
FARM WORKER NOTES BS 142 MG/DL INSULIN HELD D/T PATIENT FEEDING ON HOLD AND BS TRENDING LOW . WILL CONT TO MONITOR
[2019-01-04] MEDS: IV NS 0.9% 250 ML IV PRN (15:40)
[2019-01-04] MEDS: METOCLOPRAMIDE HCL 10 MG/2 ML VIAL IV PRN (16:00)
--- NOTE | 2019-01-04 16:40 | NUR ---
ASH RN NOTES RECEIVED BEDSIDE REPORT. TRANSFER FROM ICU. A/O X 1-2. NO SIGNS OR SYMPTOMS OF RESPIRATORY DISTRESS SATURATING 94% ON 5 LTRS NASAL CANNULA. SINUS TACH HR 117, NO COMPLAIN OR SIGNS OF PAIN. PER ICU NURSE, PT WAS ON BILATERAL WRIST RESTRAINTS UPSTAIRS, FOR INTERFERING WITH MED CARE AND PULLING AT LINES, NOT IN RESTRAINT AT THE MOMENT. GTF OF NEPRO @ 20ML/HR, TEMPORARY OFF, PER ICU NURSE PT NOT TOLERATING, NAUSEOUS AND VOMITING. PLACEMENT CHECKED 100-120ML RESIDUAL FEEDING CURRENTLY ON HOLD. GOAL IS FOR 40ML/HR. VITALS STABLE. HOB ELEVATED <30 DEGREES. ASPIRATION AND SAFETY PRECAUTIONS IN PLACE BED LOW POSITION. WILL CONT TO MONITOR. HD NURSE REYNA ABOUT TO START DIALYSIS.
--- NOTE | 2019-01-04 16:52 | NUR ---
TRACTOR OPERATOR LASER LEVELING NOTES PATIENT DOWNGRADED TO ASH/TELE. BEDSIDE REPORT GIVEN TO GAGAN PAYAN RN . PHARMACY NOTIFIED FOR EPOGEN AND ENDORSED TO GAGAN.
--- NOTE | 2019-01-04 17:20 | NUR ---
CALLED GABRIELLE IN REGARDS TO RELEASING FINAL BLOOD CULTURE PER DR RYAN. UNABLE TO GET A HOLD OF LAB. WILL ENDORSE TO HEATHER
[2019-01-04] MEDS: MEROPENEM 1 G in IV NS 0.9% 100 ML IV SCH (17:54)
--- NOTE | 2019-01-04 19:10 | NUR ---
ASH RN OPENING NOTES RECEIVED BEDSIDE REPORT. A/O X 2. ON 5 LTRS VIA NASAL CANNULA, NO S/S OF RESPIRATORY DISTRESS, RR EVEN AND UNLABORED. ON TELE MONITOR SINUS TACH HR 111, NO COMPLAIN OR SIGNS OF PAIN. PER REPORT, PT WAS ON BILATERAL WRIST RESTRAINTS UPSTAIRS, FOR INTERFERING WITH MED CARE AND PULLING AT LINES, NOT IN RESTRAINT AT THE MOMENT. IV SITE WHITLEY PICC SITE C/D/I. R CHEST WALL MARLENI SITE C/D/I. GTF OF NEPRO @ 20ML/HR, TEMPORARY OFF, PER REPORT, PT NOT TOLERATING, NAUSEOUS AND VOMITING. PLACEMENT CHECKED, 100ML RESIDUAL, FEEDING CURRENTLY ON HOLD. GOAL IS FOR 40ML/HR. HOB ELEVATED <30 DEGREES. ASPIRATION AND SAFETY PRECAUTIONS IN PLACE, BED LOCKED AND LOW POSITION. HD NURSE REYNA AT BEDSIDE, PT CURRENTLY GETTING HD. WILL CONT TO MONITOR PT CLOSELY.
--- NOTE | 2019-01-04 19:20 | NUR ---
ASH RN NOTES PATIENT RESTING COMFORTABLY, NOT IN ANY DISTRESS. ONGOING HD. PM CARE DONE. ALL NEEDS MET AT THIS TIME. ENDORSED TO NEXT SHIFT FOR PRABHJOT.
--- NOTE | 2019-01-04 20:30 | NUR ---
ASH RN NOTES CHECKED PT RESIDUAL 5ML NOTED. RESTARTED GTUBE FEEDING AT 10ML/HR. WILL RECHECK IN 2 HRS.
[2019-01-04] MEDS: INSULIN GLARGINE, 100 UNIT/ML CARTRIDGE SQ SCH (22:00)
[2019-01-04] MEDS: LORAZEPAM INJ 2 MG/ML VIAL IV PRN (22:14)
--- NOTE | 2019-01-04 22:50 | NUR ---
ASH RN NOTES CHECKED PT BLOOD SUGAR 117. WILL HOLD LANTUS 25 UNITS D/T PATIENT GTUBE FEEDING JUST STARTED 10ML/HR AT 2029. RECHECKED RESIDUAL 5ML, INCREASED GTUBE FEEDING TO 20ML/HR. WILL CONT TO MONITOR.
[2019-01-05] VITALS: BP 165/101
[2019-01-05] MEDS: CLONIDINE HCL 0.1 MG TABLET GT PRN (00:15)
[2019-01-05] MEDS: BLOOD SUGAR DIAGNOSTIC 1 EACH STRIP IN SCH ×5 (00:16→23:13)
[2019-01-05] MEDS: INSULIN REGULAR, HUMAN 100 UNIT/ML 3 ML VIAL SQ PRN ×4 (00:43→23:15)
[2019-01-05 04:00] VITALS: BP 168/91
[2019-01-05] MEDS: hydrALAZINE HCL IV 20 MG VIAL IV PRN (04:33)
[2019-01-05 06:51] LABS: BASOPHILS # (AUTO) 0.1 /CMM (0.0-0.2); EOSINOPHILS % (AUTO) 3.9 % (0.0-6.0); HEMATOCRIT 22 % (39-51); HEMOGLOBIN 7.6 g/dL (13.5-17.5); LYMPHOCYTES # (AUTO) 0.8 /CMM (0.8-4.8); MEAN CORPUSCULAR HGB CONC 34 g/dl (31.0-36.0); MEAN CORPUSCULAR VOLUME 96 fL (80-96); MONOCYTES # (AUTO) 0.6 /CMM (0.1-1.30); MONOCYTES % (AUTO) 6.3 % (2.0-12.0); NEUTROPHILS # (AUTO) 7.7 /CMM (1.8-8.9); NEUTROPHILS % (AUTO) 80.8 % (43.0-81.0); PLATELET COUNT (AUTO) 267 /CMM (150-450); RED BLOOD CELL COUNT(AUTO) 2.31 MIL/uL (4.5-6.0); WHITE BLOOD COUNT (AUTO) 9.5 K/uL (4.3-11.0)
[2019-01-05 07:05] LABS: CALCIUM, SERUM 8.8 mg/dL (8.5-10.1); CREATININE 6.1 mg/dL (0.6-1.3); MAGNESIUM 2.4 mg/dL (1.8-2.4); PHOSPHORUS 3.2 mg/dL (2.5-4.9); POTASSIUM 4.1 mmol/L (3.5-5.1)
--- NOTE | 2019-01-05 07:05 | NUR ---
ASH RN CLOSING NOTES PATIENT A/O X 2 WITH EPISODES OF CONFUSION. ON 5 LTRS VIA NASAL CANNULA, NO S/S OF RESPIRATORY DISTRESS, RR EVEN AND UNLABORED. ON TELE MONITOR SINUS TACH HR 120, NO COMPLAINS OR SIGNS OF PAIN. PT ON BILATERAL WRIST RESTRAINTS FOR INTERFERING WITH MED CARE AND PULLING AT LINES. IV SITE WHITLEY PICC SITE C/D/I, FLUSHING AND PATENT, SL. R CHEST WALL MARLENI SITE C/D/I. GTF OF NEPRO @ 20ML/HR, TEMPORARY ON HOLD D/T RESIDUAL 120ML. GOAL IS FOR 40ML/HR. HOB ELEVATED <30 DEGREES. ASPIRATION AND SAFETY PRECAUTIONS IN PLACE, BED LOCKED AND LOWEST POSITION. ALL MD ORDERS ATTENDED. ALL NEEDS ANTICIPATED AND MET. REPOSITIONED Q2H. ENDORSED TO AM RN FOR PRABHJOT.
--- NOTE | 2019-01-05 07:30 | NUR ---
ASH RN AM NOTES RECEIVED BEDSIDE REPORT. A/O X 2. ON 5 LTRS VIA NASAL CANNULA, NOT [place] DISTRESS, RESP EVEN AND UNLABORED. ON TELE MONITOR SINUS TACH HR 121, NO COMPLAIN OR SIGNS OF PAIN. PER REPORT, PT WAS ON BILATERAL WRIST RESTRAINTS, FOR INTERFERING WITH MED CARE AND PULLING AT LINES, NOT IN RESTRAINT AT THE MOMENT. IV SITE WHITLEY PICC SITE C/D/I. R CHEST WALL MARLENI SITE C/D/I. GTF OF NEPRO @ 20ML/HR, TEMPORARY OFF, PER REPORT, PT NOT TOLERATING. PLACEMENT CHECKED, 100ML RESIDUAL, FEEDING CURRENTLY ON HOLD. GOAL IS FOR 40ML/HR. HOB ELEVATED <30 DEGREES. ASPIRATION AND SAFETY PRECAUTIONS IN PLACE, BED LOCKED AND LOW POSITION. SAFETY MEASURES IN PLACE. WILL CONT TO MONITOR PT CLOSELY.
[2019-01-05 08:00] VITALS: BP 135/70
[2019-01-05] MEDS: SEVELAMER CARBONATE 0.8 GM POWD.PACK GT SCH ×3 (09:10→18:27)
[2019-01-05] MEDS: LACTULOSE 10 G/15 ML UDC (PYXIS) PEG SCH (09:10)
[2019-01-05] MEDS: CALCIUM CARBONATE (1250) 500 MG TABLET GT SCH (09:11)
[2019-01-05] MEDS: CLOPIDOGREL BISULFATE 75 MG TABLET GT SCH (09:11)
[2019-01-05] MEDS: DOCUSATE SODIUM LIQ 100 MG/10 ML UDC NG SCH ×2 (09:11→17:35)
[2019-01-05] MEDS: ATORVASTATIN 40 MG TABLET GT SCH (09:11)
[2019-01-05] MEDS: SERTRALINE HCL 50 MG TABLET GT SCH (09:11)
[2019-01-05] MEDS: LINAGLIPTIN 5 MG TABLET PO SCH (09:11)
[2019-01-05] MEDS: ASPIRIN 81 MG TAB.CHEW GT SCH (09:11)
[2019-01-05] MEDS: QUETIAPINE FUMARATE 25 MG TABLET GT SCH ×2 (09:11→17:35)
[2019-01-05] MEDS: LEVETIRACETAM (500MG) 1,000 MG in IV NS 0.9% 100 ML IV SCH (09:12)
[2019-01-05] MEDS: LISINOPRIL (20MG) 20 MG TABLET PO SCH (09:15)
[2019-01-05] MEDS: NEXIUM 40 MG VIAL IV SCH ×2 (09:16→21:10)
[2019-01-05] MEDS: TRIAMCINOLONE OINT 0.1% 15 GM TUBE TP SCH ×2 (09:20→18:31)
[2019-01-05] MEDS: AZELASTINE NASAL SPRAY 30 ML BOTTLE NS SCH ×2 (09:20→18:31)
--- NOTE | 2019-01-05 09:30 | NUR ---
ASH RN NOTES DUE MEDS GIVEN. GTF RESUMED. NO RESIDUAL.
--- NOTE | 2019-01-05 10:15 | NUR ---
ASH RN NOTES SPEECH THERAPIST AT BEDSIDE. UNABLE TO DO SWALLOW EVAL, PATIENT CONFUSED AND UNABLE TO FOLLOW COMMANDS.
[2019-01-05 12:00] VITALS: BP_SYST 114; BP_SYST 146; BP_DIAS 38; BP_DIAS 79
--- NOTE | 2019-01-05 12:06 | NUR ---
ASH RN NOTES REPORT GIVEN TO CHRIS RICK
[2019-01-05 16:00] VITALS: BP 134/73
[2019-01-05] MEDS: MEROPENEM 1 G in IV NS 0.9% 100 ML IV SCH (17:35)
--- NOTE | 2019-01-05 19:00 | NUR ---
Will endorse to night RN. Unable to accommodate family request to go to [facility] as no dialysis inpatients at this location. Case management working to place patient in a suitable unit. Bowel movements are more frequent, 2 times since handoff at 1 pm from Kirsten Terry RN. Patient is wanting to go to his brother's house in [place]. He is still confused, but is alert at this time. Breath sounds of the right upper and middle lobes are diminished. Rhonchi throughout on the left side. Patient request to eat. His order is NPO. Patient family also requesting for patient to eat. Patient tube feeding tolerated at this time. The rate is 20 ml per hour. Blood glucose is stable. Insulin coverage as per sliding scale at 1800 given. Ubaldo Dorado RN
--- NOTE | 2019-01-05 19:20 | NUR ---
RN NOTES: RECEIVED AWAKE LYING ON SEMI FOWLERS POSITION, FOR O2 AT 2L/MIN VIA NC, PATIENT IS TRYING TO REMOVE IT, EXPLAINED TO HIM UPON ENDORSEMENT THAT WE NEED TO KEEP IT ON, HE AGREED, NO SOB OR SIGN OF RESPIRATORY DEPRESSION NOTED,HE HAS DIMINISHED LUNG SOUND ON RIGHT UPPER LUNG FIELD, AND RHOCHI ON LEFT LOWER LUNG FIELD, A/O 1-2 WITH PERIODS OF CONFUSION, ON CUTTER AND EDGE TRIMMER ST-103 , ON BED REST, CONTINENT BOTH B/B, PICC ON WHITLEY G#18, RCW QUANTON CATH, PEG SITE INTACT WITH FEEDING ONGOING OF NEPHRO AT 20 ML/HR VIA FEEDING PUMP, PATENT,TOLERATED. ORIENTED TO UNIT AND STAFF, FALL,SAFETY AND ASPIRATION PRECAUTION OBSERVED, BED LOW AND LOCKED, CALL LIGHT WITHIN EASY REACH.ON SOFT BILATERAL RESTRAIN, CIRCULATION MONITOR.
--- NOTE | 2019-01-05 19:36 | NUR ---
Gave handoff report to HEATHER Fernandez. Ubaldo Dorado RN
[2019-01-05 20:00] VITALS: BP 139/62
--- NOTE | 2019-01-05 20:31 | NUR ---
RN NOTES: AT AROUND 1935 PATIENT WAS ROOM MOVE FROM 116-2 TO 113-1 FOR 1;1 SITTER, HE IS HIGH RISK FOR FALL AND TRYING TO REMOVE HIS TUBING, ON CLOSE WATCH AND ON SOFT RESTRAINT, MONITORED CIRCULATION AT FREQUENT INTERVAL.
[2019-01-05] MEDS: LEVETIRACETAM SOL (5 ML) 100 MG/ML UDC GT SCH (21:09)
[2019-01-05] MEDS: INSULIN GLARGINE, 100 UNIT/ML CARTRIDGE SQ SCH (23:13)
--- NOTE | 2019-01-05 23:18 | NUR ---
RN NOTES: BLOOD SUGAR CHECK-145, LANTUS GIVEN, INSULIN REGULAR GIVEN PER SCALE, WILL CONTINUE TO MONITOR FOR SIGN OF HYPER AND HYPOGLYCEMIA.
[2019-01-06] VITALS: BP 130/78
--- NOTE | 2019-01-06 03:50 | NUR ---
RN NOTES: ASLEEP IN THE NIGHT, 1;1 SITTER, ON SOFT RESTRAINT, CIRCULATION CHECKED,KEPT ON CLOSE VISUAL CHECK, CALLS AND NEEDS ATTENDED.
[2019-01-06 04:00] VITALS: BP 130/75
--- NOTE | 2019-01-06 04:10 | NUR ---
RN NOTES: SLEEPING COMFORTABLY IN BED, FEEDING ONGOING, ON SOFT RESTRAINTS, PATIENT IS NOT RESTLESS OR TRYING TO PULL OUT HIS TUBING, NO PAIN OR DISCOMFORT, RELAX AND QUIETLY SLEEPING, REMOVE ON 1;1 SITTER, ROOM CHANGE FROM 113-1 TO 114-1, KEPT ON CLOSE VISUAL CHECK AT FREQUENT INTERVAL.
[2019-01-06] MEDS: BLOOD SUGAR DIAGNOSTIC 1 EACH STRIP IN SCH ×3 (05:33→17:22)
--- NOTE | 2019-01-06 05:34 | NUR ---
RN NOTES: ASLEEP IN THE NIGHT, NO LABORED BREATHING NOTED, BLOOD SUGAR-105, NO INSULIN GIVEN PER SCALE, CONTINUE TO MONITOR FOR SIGN OF HYPER/HYPOGLYCEMIA.
--- NOTE | 2019-01-06 05:57 | NUR ---
RN NOTES: CHECK RESIDUAL AT AROUND [id number], FEEDING HOLD.
--- NOTE | 2019-01-06 07:04 | NUR ---
RN NOTES: MORNING CARE DONE, CLEAN AN CHANGE, HAD BM FORMED STOOL, NO URINE OUTPUT ANURIC, FOR HEMODIALYSIS TODAY, PEG SITE DRESSING DONE, NO DRAINAGE , NO BLEEDING ON THE SITE NOTED, DRESSING INTACT, WEIGH-162, ENDORSED TO VEL/RN FOR CONTINUITY OF CARE. Addendum: 01/06/19 at 0726 by KIMBERLEY OSBORNE RN ON SR-70.
--- NOTE | 2019-01-06 07:15 | NUR ---
RN OPENING NOTES PATIENT IN BED ASLEEP, BUT EASILY AROUSABLE. NO COMPLAINS OF ANY NOR SOB. ON 2L NC. ON TELE MONITOR, ST. ON BILATERAL SOFT RESTRAINTS DUE TO PATIENT PULLING OUT LINES. ON GTF NEPRO AT 20ML, GOAL IS 40ML/HR. PER NOC SHIFT, IT WAS STOPPED AT 0500 DUE TO PATIENT HAVING A LOT OF RESIDUAL. WILL CHECK RESIDUAL AND RESUME FEEDING. HAS RIGHT CW MARLENI CATH, DIALYSIS SCHEDULED TODAY. HAS A LEFT UA PICC SALINE LOCKED. BED LOCKED AND IN LOWEST POSITION. CALL LIGHT WITHIN REACH. WILL CONTINUE TO MONITOR
[2019-01-06] MEDS ORDERED: EPOETIN ALFA (10,000 UNIT) 10,000 UNIT/ML VIAL IV ONE (07:30)
[2019-01-06 07:38] LABS: BASOPHILS # (AUTO) 0.1 /CMM (0.0-0.2); BASOPHILS % (AUTO) 1.1 % (0.0-2.0); EOSINOPHILS % (AUTO) 5.1 % (0.0-6.0); HEMATOCRIT 23 % (39-51); HEMOGLOBIN 7.5 g/dL (13.5-17.5); LYMPHOCYTES # (AUTO) 1.2 /CMM (0.8-4.8); MEAN CORPUSCULAR HGB CONC 33 g/dl (31.0-36.0); MEAN CORPUSCULAR VOLUME 97 fL (80-96); MONOCYTES # (AUTO) 0.6 /CMM (0.1-1.30); MONOCYTES % (AUTO) 7.1 % (2.0-12.0); NEUTROPHILS # (AUTO) 6.7 /CMM (1.8-8.9); NEUTROPHILS % (AUTO) 73.7 % (43.0-81.0); PLATELET COUNT (AUTO) 275 /CMM (150-450); RED BLOOD CELL COUNT(AUTO) 2.33 MIL/uL (4.5-6.0)
[2019-01-06 07:56] LABS: ALBUMIN 1.9 g/dL (3.4-5.0); BILIRUBIN,TOTAL 0.4 mg/dL (0.2-1.0); CALCIUM, SERUM 9.3 mg/dL (8.5-10.1); MAGNESIUM 2.5 mg/dL (1.8-2.4); PHOSPHORUS 3.5 mg/dL (2.5-4.9); POTASSIUM 4.4 mmol/L (3.5-5.1)
[2019-01-06 07:58] LABS: CREATININE 8.2 mg/dL (0.6-1.3)
[2019-01-06 08:00] VITALS: BP 133/76
[2019-01-06] MEDS: NEXIUM 40 MG VIAL IV SCH ×2 (08:11→21:35)
[2019-01-06] MEDS: ASPIRIN 81 MG TAB.CHEW GT SCH (08:11)
[2019-01-06] MEDS: LEVETIRACETAM SOL (5 ML) 100 MG/ML UDC GT SCH ×2 (08:11→21:34)
[2019-01-06] MEDS: DOCUSATE SODIUM LIQ 100 MG/10 ML UDC NG SCH ×2 (08:11→17:05)
[2019-01-06] MEDS: SEVELAMER CARBONATE 0.8 GM POWD.PACK GT SCH ×3 (08:11→17:06)
[2019-01-06] MEDS: LACTULOSE 10 G/15 ML UDC (PYXIS) PEG SCH (08:11)
[2019-01-06] MEDS: ATORVASTATIN 40 MG TABLET GT SCH (08:12)
[2019-01-06] MEDS: QUETIAPINE FUMARATE 25 MG TABLET GT SCH ×2 (08:12→17:05)
[2019-01-06] MEDS: LINAGLIPTIN 5 MG TABLET PO SCH (08:12)
[2019-01-06] MEDS: CALCIUM CARBONATE (1250) 500 MG TABLET GT SCH (08:12)
[2019-01-06] MEDS: LISINOPRIL (20MG) 20 MG TABLET PO SCH (08:13)
[2019-01-06] MEDS: CLOPIDOGREL BISULFATE 75 MG TABLET GT SCH (08:13)
[2019-01-06] MEDS: SERTRALINE HCL 50 MG TABLET GT SCH (08:13)
[2019-01-06] MEDS: CYANOCOBALAMIN 1,000 MCG/ML VIAL IM SCH (08:15)
[2019-01-06] MEDS: NEPRO 1,000 ML BOTTLE GT PRN (08:40)
[2019-01-06 09:00] VITALS: BP 133/76
[2019-01-06] MEDS: TRIAMCINOLONE OINT 0.1% 15 GM TUBE TP SCH ×2 (09:41→17:10)
[2019-01-06] MEDS: AZELASTINE NASAL SPRAY 30 ML BOTTLE NS SCH ×2 (09:42→17:10)
--- NOTE | 2019-01-06 10:01 | NUR ---
RN NOTES PATIENT HAVING DIALYSIS AT THIS TIME. EPOGEN WAS ADMINISTERED. LAB CALLED DUE TO CREATININE 8.2
--- NOTE | 2019-01-06 11:30 | NUR ---
RN NOTES HD DONE, 2L OUT
--- NOTE | 2019-01-06 12:06 | NUR ---
RN NOTES PATIENT'S BLOOD SUGAR WAS 60 MG/DL, GAVE ORANGE JUICE VIA GT. RECHECKED BS: 80 MG/DL. CHECKED RESIDUAL, 10ML. INCREASED GTF TO 30ML/HR, GOAL IS 40
[2019-01-06 16:00] VITALS: BP 131/76
--- NOTE | 2019-01-06 17:23 | NUR ---
RN NOTES GTF CURRENTLY AT 30ML/HR. 80ML RESIDUAL NOTED. WILL CONTINUE FEEDING,.
--- NOTE | 2019-01-06 18:51 | NUR ---
RN CLOSING NOTES PATIENT IN BED ASLEEP BUT EASILY AROUSABLE. ON 2L NC, SATING 98%. ON TELE MONITOR, HR WNL. HD DONE TODAY, 2L OUT. ON BILATERAL SOFT WRIST RESTRAINTS, RENEWED AT 0900. ON NEPRO GTF AT 30 ML/HR. GOAL IS 40. FAMILY CAME IN TO VISIT. BLOOD SUGAR THROUGHOUT THE DAY HAS BEEN WNL. BED LOCKED AND IN LOWEST POSITION. CALL LIGHT WITHIN REACH. WILL ENDORSE TO NOC SHIFT FOR PRABHJOT
--- NOTE | 2019-01-06 19:00 | NUR ---
MS RN NOTE PATIENT RECEIVED IN BED DROWSY FAMILY AT BEDSIDE. PATIENT IN COLE SOFT WRIST RESTAINTS. PATIENT HAS EXTENSIVE WEAKNESS ON RIGHT LEFT ARM, REMOVED RESTRAINT. FAMILY IS COMFORTABLE WITH OR WITHOUT RESTAINTS. PATIENT IS ON O2 NC SATURATING WELL NO S.S OF RESP DISTRESS. WILL CONTINUE TO MONITOR. PATIENT TOLERATING GTUBE FEEDING. SAFETY PRECAUTIONS IN PLACE WILL CONTINUE 15 MIN SAFETY CHECKS
[2019-01-06] MEDS ORDERED: INSULIN GLARGINE, 100 UNIT/ML CARTRIDGE SQ ONE (22:56)
[2019-01-06] MEDS: INSULIN GLARGINE, 100 UNIT/ML CARTRIDGE SQ SCH (23:04)
[2019-01-07] VITALS: BP 143/68
[2019-01-07] MEDS: BLOOD SUGAR DIAGNOSTIC 1 EACH STRIP IN SCH ×4 (00:48→17:40)
--- NOTE | 2019-01-07 00:54 | NUR ---
MS ROMERO NOTE PATIENT BLOOD SUGAR WAS 135 AT MIDNIGHT. PATIENT HAS HISTORY OF HYPOGLYCEMIA IN THE MORNING DESPITE GTUBE FEEDING. WILL HOLD THE TWO UNITS AND REASSESS IN THE AM. Addendum: 01/07/19 at 0059 by MIGUE SINGH RN PATIENT C/O NAUSEA, REQUESTED TO TURN FEEDING PUMP OFF FOR A TIME.
--- NOTE | 2019-01-07 02:00 | NUR ---
MS RN NOTE PATIENT AWAKE A/O X 2. PATIENT ABLE TO ESCAPE FROM RESTRAINTS, PATIENT ABLE TO FOLLOW COMMANDS AND AGREES TO STAY IN BED AND NOT PULL ON LINES. PATIENT COOPERATIVE AND AGREEABLE. PATIENT RELEASED FROM RESTRAINTS AT THIS TIME. RN WILL CONTINUE TO MONITOR AND MAKE ROUNDS.
--- NOTE | 2019-01-07 06:20 | NUR ---
MS RN NOTE RESTRAINTS HAVE REMAINED OFF. PATIENT BLOOD SUGAR 118 WITH MINIMAL RESIDUAL NOTED AT THIS TIME LESS THAN 20. PATIENT DENIES S/S OF DISCOMFORT. PATIENT REMAINS RESTLESS AND STILL HAS LEFT SIDED WEAKNESS. NO ACUTE CHANGES THROUGH THE NIGHT ALL CARE RENDERED ORDERED. WILL ENDORSE POC TO AM FOR PRABHJOT.
[2019-01-07 08:00] VITALS: BP 145/75
[2019-01-07] MEDS: TRIAMCINOLONE OINT 0.1% 15 GM TUBE TP SCH ×2 (09:00→17:40)
[2019-01-07] MEDS: AZELASTINE NASAL SPRAY 30 ML BOTTLE NS SCH ×2 (09:00→17:40)
[2019-01-07] MEDS: LEVETIRACETAM SOL (5 ML) 100 MG/ML UDC GT SCH ×2 (09:09→21:24)
[2019-01-07] MEDS: SEVELAMER CARBONATE 0.8 GM POWD.PACK GT SCH ×3 (09:09→17:26)
[2019-01-07] MEDS: LACTULOSE 10 G/15 ML UDC (PYXIS) PEG SCH (09:09)
[2019-01-07] MEDS: ASPIRIN 81 MG TAB.CHEW GT SCH (09:10)
[2019-01-07] MEDS: DOCUSATE SODIUM LIQ 100 MG/10 ML UDC NG SCH ×2 (09:10→17:26)
[2019-01-07] MEDS: SERTRALINE HCL 50 MG TABLET GT SCH (09:10)
[2019-01-07] MEDS: QUETIAPINE FUMARATE 25 MG TABLET GT SCH ×2 (09:10→17:26)
[2019-01-07] MEDS: LINAGLIPTIN 5 MG TABLET PO SCH (09:10)
[2019-01-07] MEDS: ATORVASTATIN 40 MG TABLET GT SCH (09:10)
[2019-01-07] MEDS: CALCIUM CARBONATE (1250) 500 MG TABLET GT SCH (09:10)
[2019-01-07] MEDS: CLOPIDOGREL BISULFATE 75 MG TABLET GT SCH (09:10)
[2019-01-07] MEDS: NEXIUM 40 MG VIAL IV SCH (09:12)
[2019-01-07] MEDS: LISINOPRIL (20MG) 20 MG TABLET PO SCH (09:17)
[2019-01-07] MEDS: MAGNESIUM HYDROXIDE 30 ML UDC GT PRN (13:12)
[2019-01-07 16:00] VITALS: BP 173/82
--- NOTE | 2019-01-07 19:05 | NUR ---
RN MS OPENING NOTES RECEIVED PATIENT IN BED AT BEDSIDE STATES SHE IS LEAVING AND WOULD LIKE RESTRAINTS PLACED BACK ON, SKIN ASSESSED PULSES PALPABLE, SKIN INTACT, SOFT WRIST RESTRAINTS PLACED, REPOSITIONED, AWAKE ALERT AND ORIENTED X 1-2, ABLE TO MAKE SIMPLE NEEDS KNOWN, RESPIRATIONS EVEN AND UNLABORED WITH EQUAL RISE AND FALL OF CHEST, DENIES ANY PAIN OR DISCOMFORT AT THIS TIME GTUBE INTACT AND PATENT, FEEDING FLOWING WELL TOLERATING WELL NO RESIDUALS PRESENT, RIGHT CHEST WALL MARLENI CATH INTACT DRESSING CLEAN AND INTACT, LEFT UPPER ARM PICC LINE INTACT SL DRESSING C/D/I, ORIENTED TO STAFF AND CALL LIGHT AND KEPT WITHIN REACH, ALL NEEDS ATTENDED AT THIS TIME, WILL CONTINUE TO MONITOR AND ATTEND TO NEEDS.
[2019-01-07] MEDS: PANTOPRAZOLE 40 MG/PACK PACK GT SCH (21:24)
[2019-01-07] MEDS: INSULIN GLARGINE, 100 UNIT/ML CARTRIDGE SQ SCH (22:52)
[2019-01-08] MEDS: INSULIN REGULAR, HUMAN 100 UNIT/ML 3 ML VIAL SQ PRN ×2 (00:44→05:41)
[2019-01-08] MEDS: BLOOD SUGAR DIAGNOSTIC 1 EACH STRIP IN SCH ×4 (00:44→18:31)
[2019-01-08] MEDS: NEPRO 1,000 ML BOTTLE GT PRN (03:27)
[2019-01-08 04:00] VITALS: BP 128/80
--- NOTE | 2019-01-08 06:51 | NUR ---
RN MS CLOSING NOTES PATIENT IN BED REPOSITIONED AND PULLED UP MANY TIMES THROUGHOUT SHIFT, PATIENT SLIDES HIMSELF DOWN AND REMOVES PILLOWS BLANKETS AND PUSHES SELF TOWARDS FOOT OF BED, RESTRAINTS IN PLACE, SKIN ASSESSED PULSES PALPABLE, SKIN INTACT, FREQUENTLY REPOSITIONED, AWAKE ALERT AND ORIENTED X 1-2, ABLE TO MAKE SIMPLE NEEDS KNOWN, RESPIRATIONS EVEN AND UNLABORED WITH EQUAL RISE AND FALL OF CHEST, DENIES ANY PAIN OR DISCOMFORT AT THIS TIME GTUBE INTACT AND PATENT, FEEDING FLOWING WELL TOLERATING WELL NO RESIDUALS PRESENT, RIGHT CHEST WALL MARLENI CATH INTACT DRESSING CLEAN AND INTACT, LEFT UPPER ARM PICC LINE INTACT SL DRESSING C/D/I, CALL LIGHT KEPT WITHIN REACH, ALL NEEDS ATTENDED AT THIS TIME, WILL CONTINUE TO MONITOR AND ATTEND TO NEEDS AND ENDORSE TO NEXT SHIFT, NON PRODUCTIVE COUGH NOTED. NO SPUTUM NOTED. HEAD OF BED ELEVATED. NO CHANGE IN LOC THROUGHOUT SHIFT, FREQUENT NEURO CHECKS DONE, NO CHANGE THROUGHOUT SHIFT. ABLE TO FOLLOW SIMPLE DIRECTIONS.
--- NOTE | 2019-01-08 07:15 | NUR ---
RN OPENING NOTES PATIENT IN BED, AWAKE VERY CONFUSED INSISTING HE WANTS TO GET OUT OF THE BED AND GO HOME. ON ROOM AIR, SATIN >90%. HD SCHEDULED TODAY. ON GTF NEPRO AT GOAL 40 ML/HR. HAS 80 ML RESIDUAL WHEN I CHECKED. HAS A RIGHT CW MARLENI CATH. AND LEFT UPPER ARM PICC SALINE LOCKED. HAS RESTRAINTS ON, TO BE RENEWED AT 2331 TONIGHT. DC PLANNING PER MD. BED LOCKED AND IN LOWEST POSITION. ALL RAILS UP AND CALL LIGHT WITHIN REACH. WILL CONTINUE TO MONITOR
[2019-01-08 07:33] LABS: BASOPHILS # (AUTO) 0.1 /CMM (0.0-0.2); BASOPHILS % (AUTO) 0.9 % (0.0-2.0); EOSINOPHILS % (AUTO) 3.8 % (0.0-6.0); HEMATOCRIT 22 % (39-51); HEMOGLOBIN 7.1 g/dL (13.5-17.5); LYMPHOCYTES # (AUTO) 1.2 /CMM (0.8-4.8); LYMPHOCYTES % (AUTO) 10.1 % (20.0-44.0); MEAN CORPUSCULAR HGB CONC 33 g/dl (31.0-36.0); MEAN CORPUSCULAR VOLUME 97 fL (80-96); MONOCYTES # (AUTO) 0.7 /CMM (0.1-1.30); MONOCYTES % (AUTO) 5.8 % (2.0-12.0); NEUTROPHILS # (AUTO) 9.4 /CMM (1.8-8.9); NEUTROPHILS % (AUTO) 79.4 % (43.0-81.0); PLATELET COUNT (AUTO) 294 /CMM (150-450); RED BLOOD CELL COUNT(AUTO) 2.25 MIL/uL (4.5-6.0); WHITE BLOOD COUNT (AUTO) 11.9 K/uL (4.3-11.0)
[2019-01-08 07:47] LABS: ALBUMIN 1.9 g/dL (3.4-5.0); BILIRUBIN,TOTAL 0.4 mg/dL (0.2-1.0); CALCIUM, SERUM 9.3 mg/dL (8.5-10.1); MAGNESIUM 2.9 mg/dL (1.8-2.4); PHOSPHORUS 2.3 mg/dL (2.5-4.9); TOTAL PROTEIN, SERUM 6.7 g/dL (6.4-8.2)
[2019-01-08 07:54] LABS: CREATININE 7.9 mg/dL (0.6-1.3)
[2019-01-08 08:00] VITALS: BP 146/83
[2019-01-08] MEDS: SEVELAMER CARBONATE 0.8 GM POWD.PACK GT SCH ×3 (08:17→18:00)
[2019-01-08] MEDS: DOCUSATE SODIUM LIQ 100 MG/10 ML UDC NG SCH ×2 (08:18→16:41)
[2019-01-08] MEDS: ATORVASTATIN 40 MG TABLET GT SCH (08:18)
[2019-01-08] MEDS: QUETIAPINE FUMARATE 25 MG TABLET GT SCH ×2 (08:18→16:41)
[2019-01-08] MEDS: PANTOPRAZOLE 40 MG/PACK PACK GT SCH ×2 (08:18→21:10)
[2019-01-08] MEDS: LACTULOSE 10 G/15 ML UDC (PYXIS) PEG SCH (08:18)
[2019-01-08] MEDS: LEVETIRACETAM SOL (5 ML) 100 MG/ML UDC GT SCH ×2 (08:18→21:10)
[2019-01-08] MEDS: ASPIRIN 81 MG TAB.CHEW GT SCH (08:19)
[2019-01-08] MEDS: SERTRALINE HCL 50 MG TABLET GT SCH (08:19)
[2019-01-08] MEDS: LINAGLIPTIN 5 MG TABLET PO SCH (08:19)
[2019-01-08] MEDS: CALCIUM CARBONATE (1250) 500 MG TABLET GT SCH (08:19)
[2019-01-08] MEDS: CLOPIDOGREL BISULFATE 75 MG TABLET GT SCH (08:19)
[2019-01-08] MEDS: LISINOPRIL (20MG) 20 MG TABLET PO SCH (08:25)
[2019-01-08] MEDS: TRIAMCINOLONE OINT 0.1% 15 GM TUBE TP SCH ×2 (08:27→16:47)
[2019-01-08] MEDS: AZELASTINE NASAL SPRAY 30 ML BOTTLE NS SCH ×2 (08:28→16:46)
[2019-01-08] MEDS: LORAZEPAM INJ 2 MG/ML VIAL IV PRN (09:45)
--- NOTE | 2019-01-08 09:45 | NUR ---
RN NOTES ADMINISTERED ATIVAN 0.5 MG PRN. PATIENT IS STARTING TO GET VERY AGITATED.
--- NOTE | 2019-01-08 13:27 | NUR ---
RN NOTES NEPRO AT 40 ML/HR, TOLERATING WELL. AT BEDSIDE. GOT A DC ORDER FROM DR JAMIE NAVA. MANAGER ECONOMIC AWARE AND WILL TALK TO HERE AT BEDSIDE
[2019-01-08] MEDS: MAGNESIUM HYDROXIDE 30 ML UDC GT PRN (14:03)
[2019-01-08] MEDS ORDERED: NEUTRA PHOS 1 POWD.PACKET PO ONE (15:30)
--- NOTE | 2019-01-08 16:00 | NUR ---
RN NOTES DIALYSIS AT THIS TIME. WILL CALL AMBULANCE ONCE DIALYSIS IS DONE FOR [facility]. CALLED [facility] AND THEY ASKED FOR A CALL BACK NUMBER BECAUSE THEY COULD NOT TAKE REPORT AT THIS TIME,
[2019-01-08 16:38] VITALS: BP 97/57
--- NOTE | 2019-01-08 18:47 | NUR ---
RN CLOSING NOTES PATIENT IN BED ASLEEP BUT EASILY AROUSABLE. NO COMPLAINS OF ANY PAIN OR SOB. ALERT AND ORIENTED TO SELF ONLY. HAD 2X BM CONSTIPATED, HAS BEEN GIVEN MOM FOR CONSTIPATION. PHOS HAS BEEN REPLACED AND HELD RENVELA. PATIENT WILL BE PICKED UP TONIGHT BY [facility] AT 2030. AWARE, SAID SHE WILL COME TONIGHT BEFORE PATIENT LEAVES. REPORT GIVEN TO ABHI ROMERO AT [facility]. PATIENT STILL ON SOFT BILATERAL WRIST RESTRAINTS. BED LOCKED AND IN LOWEST POSITION. CALL LIGHT WITHIN REACH, WILL ENDORSE TO NOC SHIFT FOR PRABHJOT. BELONGINGS LIST SIGNED BY THE
--- NOTE | 2019-01-08 19:10 | NUR ---
MS RN NOTE RECEIVED PT IN STABLE CONDITION, A&O X1, AT BEDSIDE. CURRENTLY ASLEEP IN BED. NO SIGNS OF SOB OR DISTRESS, NO INDICATIONS OF PAIN. PT. GTUBE PATENT AND INTACT NO RESIDUAL NOTED. WHITLEY PICC LINE IN PLACE. ALL CURRENT NEEDS ATTENDED TO. BED LOW, LOCKED, UPPER RAILS UP, AND CALL LIGHT WITHIN REACH. WILL CONT. TO MONITOR.
[2019-01-08] MEDS: INSULIN GLARGINE, 100 UNIT/ML CARTRIDGE SQ SCH (21:42)
--- NOTE | 2019-01-08 21:42 | NUR ---
MS RN NOTE 2200 [address] 25 UNIT HELD, PT IS BEING D/C TO [facility]F WITH BS OF 117, MED HELD VERIFIED WITH FLOOR CHARGE NURSE. WILL CONT. TO MONITOR.
--- NOTE | 2019-01-08 22:32 | NUR ---
MS RN NOTE PT NOTED WITH BP OF 173/94, HR 103. PULLED CLONIDINE FROM PYXIS, AND RETURNED. CHARGE NURSE LASHAY WANTED TO GIVE IV HYDRALAZINE 10 MG INSTEAD. PULLED ANOTHER CLONIDINE FROM CrelowXIS BECAUSE PICC LINE WAS PULLED. HYDRALAZINE WASTED WITH CHARGE NURSE IN MED ROOM. CLONIDINE GIVEN VIA GTUBE AT 2335. WILL CONT TO MONITOR PT.
[2019-01-08] MEDS: hydrALAZINE HCL IV 20 MG VIAL IV PRN (23:31)
[2019-01-08 23:35] VITALS: BP 173/83
[2019-01-08] MEDS: CLONIDINE HCL 0.1 MG TABLET GT PRN (23:35)
--- NOTE | 2019-01-09 00:14 | NUR ---
MS RN NOTE PT LEFT FLOOR WITH AMBULANCE PERSONNEL. PT IN STABLE CONDITION A&O X1. PICC LINE REMOVED. NO BELONGINGS AT BEDSIDE. GTUBE SITE PATENT AND INTACT, CLAMPED UPON LEAVING. BODY REMAINS INTACT. RADHA (DAUGHTER) NOTIFIED OF PT DEPARTURE. REPORT GIVEN TO JACKY AT [facility]. LAST VITALS UPON LEAVIN/87, 94% ON 2L, HR 84, 97.9.
== END 2019-01-09 01:19 | DRG 64 ==
LOC: ER 19:30 → TELE1 22:04 → ICU 12-19 07:17 → TELE-TD 01-04 16:32 → TELE1 01-05 12:00 → MEDSG1 01-06 10:48
PROVIDERS: ATTEND Nurse Practitioner Acute Care
PROC: 5A1955Z Respiratory Ventilation, Greater than 96 Consecutive Hours (ICD-10-PCS; principal; 2018-12-20)
PROC: 0BH17EZ Insertion of Endotracheal Airway into Trachea, Via Natural or Artificial Opening (ICD-10-PCS; 2018-12-20)
PROC: 02HV33Z Insertion of Infusion Device into Superior Vena Cava, Percutaneous Approach (ICD-10-PCS; 2018-12-20)
PROC: B548ZZA Ultrasonography of Superior Vena Cava, Guidance (ICD-10-PCS; 2018-12-20)
PROC: 5A1D70Z Performance of Urinary Filtration, Intermittent, Less than 6 Hours Per Day (ICD-10-PCS; 2018-12-20)
PROC: 0B21XEZ Change Endotracheal Airway in Trachea, External Approach (ICD-10-PCS; 2018-12-25)
PROC: 0DH63UZ Insertion of Feeding Device into Stomach, Percutaneous Approach (ICD-10-PCS; 2019-01-01)
DX: I63.9 Cerebral infarction, unspecified (principal); N18.6 End stage renal disease; J96.01 Acute respiratory failure with hypoxia; J69.0 Pneumonitis due to inhalation of food and vomit; G93.41 Metabolic encephalopathy; K92.2 Gastrointestinal hemorrhage, unspecified; D62 Acute posthemorrhagic anemia; I13.2 Hypertensive heart and chronic kidney disease with heart failure and with stage 5 chronic kidney disease, or end stage renal disease; G81.91 Hemiplegia, unspecified affecting right dominant side; I16.0 Hypertensive urgency; E87.5 Hyperkalemia; G40.909 Epilepsy, unspecified, not intractable, without status epilepticus; Z99.2 Dependence on renal dialysis; Z91.15 Patient's noncompliance with renal dialysis; E83.39 Other disorders of phosphorus metabolism; E78.5 Hyperlipidemia, unspecified; I25.10 Atherosclerotic heart disease of native coronary artery without angina pectoris; E11.22 Type 2 diabetes mellitus with diabetic chronic kidney disease; D69.6 Thrombocytopenia, unspecified; D63.8 Anemia in other chronic diseases classified elsewhere; Z79.4 Long term (current) use of insulin; Z95.1 Presence of aortocoronary bypass graft; E11.65 Type 2 diabetes mellitus with hyperglycemia; Z91.14 Patient's other noncompliance with medication regimen; K56.41 Fecal impaction; I95.9 Hypotension, unspecified; R13.10 Dysphagia, unspecified; F32.9 Major depressive disorder, single episode, unspecified; I50.9 Heart failure, unspecified; J44.9 Chronic obstructive pulmonary disease, unspecified; K21.9 Gastro-esophageal reflux disease without esophagitis; Z87.891 Personal history of nicotine dependence
CPT/HCPCS: 31720; 36415; 36569; 36600; 43246; 70450-TC; 70496-TC; 70498-TC; 70551-TC; 71045-TC; 74018; 80048-TC; 80053-TC; 80061-TC; 80076-TC; 80202-TC; 82533; 82550-TC; 82803-TC; 82962-TC; 83605-TC; 83690-TC; 83735-TC; 83880; 84100-TC; 84443-TC; 84484-TC; 85025-TC; 85730-TC; 86704; 86705; 86706; 86803; 86850-TC; 87040-TC; 87070-TC; 87081-TC; 87340; 87400; 90935-TC; 93307-TC; 93880-TC; 94002-TC; 94003-TC; 94640-TC; 94664-TC; 94760-TC; 94799-TC; 95819-TC; 97110-TC; 97530-TC; 99082-TC; A6253; A6403; C1751; C1769; G0378; J0360; J0885; J1100; J1815; J1953; J2060; J2185; J2270; J2405; J2543; J2704; J2765; J3370; J3420; J3490; J7030; J7042; J7050; J7060; Q9967